=== PATIENT | male | born 1945 | race Caucasian/White ===

== ENCOUNTER 2024-06-13 18:10 | Inpatient (IN) | payer MEDICARE, SELFPAY ==
[2024-06-13 15:30] VITALS: BP 188/75
[2024-06-13 15:55] LABS: % Basophils 0.4 % (0-2); % Eosinophils 0.8 % (0-6); % Immature Granulocytes 0.5 % (0-0.5); % Monocytes 6.2 % (1.7-9.3); % Neutrophils 82.1 % (42.2-75.2); Absolute Eosinophils 0.1 10^3/uL (0-0.7); Absolute Lymphocytes 0.8 10^3/uL (1.2-3.4); Absolute Monocytes 0.5 10^3/uL (0.1-0.6); Absolute Neutrophils 6.2 10^3/uL (1.4-6.5); Hematocrit 37.1 % (39.0-52.0); Hemoglobin 12.2 g/dL (13.0-18.0); Mean Corp Hgb Conc. 32.9 g/dL (33.0-37.0); Mean Corpuscular Hgb 27.7 pg (27.0-31.0); Mean Corpuscular Volume 84.3 fL (80.0-94.0); Mean Platelet Volume 10.6 fL (7.4-10.4); Nucleated Red Blood Cells % 0 % (-); Platelet Count 232 10^3/uL (130-400); Red Cell Dist. Width 14.1 % (11.5-14.5); White Blood Cell Count 7.6 10^3/uL (4.8-10.8)
--- NOTE | 2024-06-13 16:01 | ED.MUSCINJ ---
HPI-Injury
General
Chief Complaint: Musculo-Skeletal Complaint
Source: patient
Exam Limitations: none
Time Seen by Provider: 06/13/24 15:31
Nursing documentation reviewed up to this point in time: agreed with
History of Present Illness-Injury
Initial Injury comments:
78-year-old male with history of Parkinson's, HTN, HLD, mild dementia, depression, PTSD, spinal fusion with rods, cholecystectomy presents stating he walked out of his son room down 2 steps, stumbled and fell onto his left side. He could not get up
due to pain in his hip. He pulled himself over and uses cane to grab telephone off the table and called his [id number] who came to help him. They called EMS, received ketamine 15 mg and route. Patient denies hitting his head, denies neck or
new back pain, denies any other injury. He denies chest pain or SOB. He denies N/V/D/C. He has had no trouble urinating.
He states his pain is minimal if he does not move.
Past History
Past History
ED Past Medical History: HTN, Hypercholesterolemia, Psychiatric and Other (Parkinson's disease)
ED Past Surgical History: Cholecystectomy, Orthopedic and Tonsilectomy
Social History
Tobacco: Non-smoker
Alcohol: None
Drug: None
Personal:
Living: alone
Employment: Retired
Family History
Family History: Other
Review of Systems
Review of Systems
Allergies reviewed?: Yes
All Other Systems: ROS reviewed and negative except as documented in HPI and ROS
Constitutional: Denies fever or chills
Respiratory: Denies trouble breathing
Cardiac: Denies chest pain, palpitations or syncope
ABD/GI: Denies abdominal pain, nausea, vomiting, diarrhea, constipated or anorexia
: Denies dysuria, frequency, incontinence or difficulty voiding
Musculoskeletal: Reports back pain (chronic, nothing new) and other (chronic pain left ankle and foot, remote hx of significant injury to both feet and ankles after falling a long distance years ago); Denies neck pain
Skin: Reports no symptoms
Neurological: Reports no symptoms
Phy Exam
Physical Exam
Physical Exam:
GENERAL: No acute distress. A&Ox3.
CONSTITUTIONAL: Afebrile.
EYES: PERRL, conjunctivae normal
Neck: Supple
ENMT: moist mucus membranes, Pharynx nl
RESPIRATORY: Regular respirations, nonlabored, lungs clear.
CARDIOVASCULAR: Regular rate and rhythm, no murmurs, no rubs.
GI: Soft, nontender, normal BS
MUSCULOSKELETAL: No spinal bony tenderness. Upper extremities are with full range of motion and nontender. Right lower extremity nontender with adequate range of motion. Left leg is shortened and internally rotated. Tender to palpate about the L
hip area. Good Pedal pulse, foot warm, sensation to touch intact. Moves with ease. Well perfused.
SKIN: Warm, dry, pink
PSYCH: Normal mood and affect. Well kept, interactive and appropriate
NEUROLOGIC: Awake, alert and oriented. No focal neurological deficits
Injury Course
Orders/Labs/Results
Orders:
Orders
06/13/24 Dinner
Regular
At Your Request: Full Participation
06/13/24 15:37
CR Hip - LT w/wo Pel 2-3 Vw* Urgent
Reason For Exam: fall, injury to left hip
Include a pelvis x-ray?: Yes
06/13/24 15:38
EKG [Electrocardiogram (*1)] Urgent
Reason for Study: Hypertension, Benign
06/13/24 15:39
EKG- Treatment ONCE
06/13/24 15:43
CBC/With Diff [Complete Blood Count/With Diff] Urgent
CMP [Comprehensive Metabolic Panel] Urgent
PT/INR [Prothrombin Time] Urgent
06/13/24 15:54
HYDROmorphone [Dilaudid] 0.5 mg IV NOW STA
06/13/24 17:02
ORTHOPEDIC CONSULT Urgent
Consulting Provider: Zaheer Perrin
Was physician already notified: Yes
Reason for consult: Left hip fracture
06/13/24 17:47
Admit/Transfer Patient As Directed
Co-Sign Provider:
Level of Care: Inpatient admission
Assign to:: Telemetry
Physician / Group: hospitalist
Diagnosis: hip fracture
Reason for Telemetry: Other
Other Reason for Telemetry: surgery
Date to Stop Telemetry: 06/15/24
Time to Stop Telemetry: 11:00
Reason for Hospitalization: hip fracture
Expected length of stay greater than two midnights?: Yes
ELOS- Estimated Length of Stay in days: 2
I certify the patient meets the requirements for IP care: Yes
PRN Pain Medication Management As Directed
May give lesser potent ordered pain med per pt: Yes
preference::
Protocol:: Medication orders for pain may be administered in a
manner that supports deferring to patient preference
when the pt is:
- Requesting an ordered lesser potent pain medication.
Least to most potent pain medications are defined
as: acetaminophen < NSAID < tramadol < opioids
(morphine, oxycodone, hydromorphone).
- Requesting a lesser dose of the same medication IF
ORDERED.
- Requesting a less intrusive route of administration
if both routes are prescribed by the provider (PO <
IV).
06/13/24 17:48
Code Status As Directed
Resuscitation Status: Full Code
06/13/24 19:45
Magnesium Hydroxide [Milk of Magnesia] 30 ml PO DAILYPRN PRN
Morphine Sulfate 2 mg IV Q2HPRN PRN
Oxycodone [Roxicodone] 5 mg PO Q4HPRN PRN
06/13/24 19:45
Activity As Directed
Activity Level: Bedrest
Bladder Scan As Directed
Follow Bladder Retention/Intermittent Cath Algorithm?: Yes
PRN if no void in __ hours: 6
Comment: if not voiding 6 hrs upon arrival to floor, bladder scan & follow algorithm
Cold Application As Directed
Location: apply ice to affected area
Frequency: PRN
Duration of Application: No longer than 20 minutes
Method of Delivery: Ice packs
Intake/ Output As Directed
Frequency: Per unit guidelines
Pneumatic Compression Sleeves As Directed
Type: Knee high
Straight Cath As Directed
Frequency: Per Retention Algorithm
Additional Instructions: straight cath as needed per acute urinary retention algorithm for 24 hrs
Additional Instructions: for bladder scan greater than 400 mL
Vital Signs As Directed
Frequency: Per unit guidelines
DX Deep Vein Thrombosis Video Routine
06/13/24 20:00
Acetaminophen [Tylenol] 650 mg PO Q4HWA
Docusate Sodium [Colace] 100 mg PO BID
Sennosides [Senokot] 17.2 mg PO BID
06/13/24 22:00
Gabapentin [Neurontin] 600 mg PO TID
Trazodone [Desyrel] 150 mg PO HS
06/14/24 Breakfast
NPO
Allow oral meds: Yes
Allow clear liquids: 4hrs prior to procedure
Comment: may have unrestricted clear liquid up to 4 hrs prior to scheduled procedure
06/14/24 08:00
Lisinopril [Zestril] 10 mg PO DAILY
Meloxicam [Mobic] 15 mg PO DAILY
Pantoprazole [Protonix] 40 mg PO DAILY
Quetiapine Fumarate [Seroquel] 100 mg PO DAILY
Tamsulosin [Flomax] 0.4 mg PO DAILY
Venlafaxine Extended Release [Effexor Xr] 225 mg PO DAILY
06/14/24 18:00
Atorvastatin [Lipitor] 10 mg PO QPM
06/15/24 11:00
DC Protocol for Telemetry ONCE
Abnormal Lab Results
06/13/24
15:43
RBC 4.40 L 10^6/uL
(4.70-6.10)
Hgb 12.2 L g/dL
(13.0-18.0)
Hct 37.1 L %
(39.0-52.0)
MCHC 32.9 L g/dL
(33.0-37.0)
MPV 10.6 H fL
(7.4-10.4)
Absolute Lymphs (auto) 0.8 L 10^3/uL
(1.2-3.4)
Neutrophils % 82.1 H %
(42.2-75.2)
Lymphocytes % 10.0 L %
(20.5-51.1)
PT 15.6 H Sec
(11.4-14.6)
BUN 22 H mg/dl
(9-20)
Total Protein 6.1 L g/dl
(6.3-8.2)
06/13/24 15:43
06/13/24 15:43
MDM/Problems Addressed
Differential Diagnosis Includes:
hip fracture
MDM/Problems Addressed:
78-year-old male with history of Parkinson's, HTN, HLD, mild dementia, depression, PTSD, spinal fusion with rods, cholecystectomy presents stating he walked out of his son room down 2 steps, stumbled and fell onto his left side. He could not get up
due to pain in his hip. He pulled himself over and uses cane to grab telephone off the table and called his [id number]-vw-lbk who came to help him. They called EMS, received ketamine 15 mg and route. Patient denies hitting his head, denies neck or
new back pain, denies any other injury. He denies chest pain or SOB. He denies N/V/D/C. He has had no trouble urinating.
He states his pain is minimal if he does not move.
Afebrile, NAD
EKG: NSR
5:00 PM
CBC with no clinically significant abnormality
CMP with no clinically significant abnormality
EKG NSR
PT PTT unremarkable
Orthopedic consult in
Hospitalist notified of admission
L hip xray initially read by this examiner: Non displaced fx femoral neck.
Dr. Perrin, Orthopedics notified
*EKG
EKG Intrepretation Date: 06/13/24
Heart Rate: 65
Rate: normal
Rhythm: sinus
[place]: normal axis
Interval: normal interval
QRS Pattern: normal QRS
*Critical Care Note
Total Time (30-74mins, 75-104mins- exclusive of procedures): Not Applicable
ED Attending Note
-
Portions of this chart may have been created with voice recognition software.� Occasional wrong word or��sound alike� substitutions may have occurred due to the inherent limitations of voice recognition software.
Discharge Plan
Departure
Patient Disposition: Admit
Date of Disposition: 06/13/24
Time of Disposition: 17:03
Admit to: Med/Surg
Presentation/result/management discussed w/ accepting MD/DO: Hospitalist
Condition: Fair
Discharge Problem:
Closed right hip fracture, Fall from slip, trip, or stumble
Interventions
Interventions:
*Risk Screen - Suicide Last Done: 06/13/24 15:30
*General Assessment Last Done: 06/13/24 15:30
*Neglect/Abuse Screening Last Done: 06/13/24 15:30
*ED COVID-19 Vaccine History Last Done: 06/13/24 16:20
*Nursing Disposition Last Done: 06/13/24 19:39
ED-Musculoskeletal Assessment Last Done: 06/13/24 16:20
Discharge Date and Time
Discharge Date/Time: 06/13/24 19:47
[2024-06-13 16:10] LABS: ALT (SGPT) 15 U/L (0-50); AST (SGOT) 23 U/L (17-59); Alkaline Phosphatase 121 U/L (38-126); Blood Urea Nitrogen 22 mg/dl (9-20); Calcium 8.6 mg/dl (8.4-10.2); Carbon Dioxide 23 mmol/L (22-30); Chloride 106 mmol/L (98-107); Estimated Creatinine Clearance 56 ml/min; Glucose 92 mg/dl (70-99); Potassium 4.3 mmol/L (3.5-5.1); Sodium 141 mmol/L (135-145); Total Bilirubin 0.5 mg/dl (0.2-1.3); Total Protein 6.1 g/dl (6.3-8.2); eGFR > 60.00
[2024-06-13 16:18] LABS: INR 1.21; PT 15.6 Sec (11.4-14.6)
[2024-06-13] MEDS: DILAUDID 0.5 MG IV (16:41)
--- NOTE | 2024-06-13 17:29 | HPS.HSE ---
Family Physician
-
Family Physician: Irwin Anthony
Chief Complaint
-
Fall
History of Present Illness
78-year-old male with a fall.He was walking out of his sun room down 2 steps and fell on the left side.
Medical History
Past Medical History
Past Medical History: Reports Other
Additional Past Medical History:
History of C. difficile, dementia, Parkinson disease, hypertension, hyperlipidemia, prostate disease, arthritis, chronic back pain, depression/PTSD, chronic pain
Past Surgical History: Reports Other
Additional Past Surgical History:
History of spinal fusion with rods, tonsillectomy, cholecystectomy
Social History
Tobacco: Former Smoker
Alcohol: None
Drug: None
Personal:
Living: Alone
Employment: Retired
Family History
Family History: Not pertinent
Allergies / Home Medications
Allergies reflects when Allergies were last updated in [facility].
Home Medications with original date entered in [facility]
Allergy/Medication List:
Allergies
Allergy/AdvReac Type Severity Reaction Status Date / Time
No Known Allergies Allergy Verified 06/13/24 15:29
Home Medications
venlafaxine 75 mg tablet 225 mg PO DAILY 09/07/08
lisinopril 10 mg tablet 10 mg PO DAILY 02/13/22
meloxicam 15 mg tablet 15 mg PO DAILY 02/13/22
simvastatin 20 mg tablet 20 mg PO HS 02/13/22
gabapentin 600 mg tablet 600 mg PO TID 10/07/22
trazodone 100 mg tablet 150 mg PO HS 10/07/22
acetaminophen 500 mg tablet (Tylenol Extra Strength) 500 mg PO DAILY 06/13/24
omeprazole 20 mg capsule,delayed release 40 mg PO DAILY 06/13/24
quetiapine 50 mg tablet 100 mg PO DAILY 06/13/24
tamsulosin 0.4 mg capsule 0.4 mg PO DAILY 06/13/24
Review of Systems
-
A 12 point ROS was completed and negative except as noted: Yes
Respiratory: Denies Trouble Breathing
Cardiac: Denies Chest Pain
Musculoskeletal: Reports Joint Pain
Physical Exam
Vital Signs
Vital Signs
Temp Pulse Resp BP Pulse Ox
98.1 F 69 20 188/75 98
06/13/24 15:30 06/13/24 15:30 06/13/24 15:30 06/13/24 15:30 06/13/24 15:30
Physical Exam
General: Comfortable and Conversant
Respiratory: Clear
Cardiac: S1/S2 and Regular Rhythm
GI: Non Tender and Normal Bowel Sounds
Musculoskeletal: Other (left leg externally rotated)
Neuro: AO x 3 and Nonfocal/grossly intact
Psych: Intact Judgment/Insight
Laboratory Results
-
06/13/24 15:43
06/13/24 15:43
Laboratory Results
PT 15.6 Sec (11.4-14.6) H 06/13/24 15:43
INR 1.21 06/13/24 15:43
Total Bilirubin 0.5 mg/dl (0.2-1.3) 06/13/24 15:43
AST 23 U/L (17-59) 06/13/24 15:43
ALT 15 U/L (0-50) 06/13/24 15:43
Alkaline Phosphatase 121 U/L (38-126) 06/13/24 15:43
Data Reviewed
-
Diagnostic Radiology: Image Personally Visualized and interpreted (Acute intertrochanteric fracture of the left femur)
Medical Tests (Nuc Med, Echo, EKG etc): Image Personally Visualized and interpreted (EKG sinus rhythm no ischemia)
Impression/Plan
-
IMPRESSION/PLAN:
# Acute traumatic left proximal femur intertrochanteric fracture with mild impaction and varus angulation
Admit
Orthopedics evaluation for surgery
Moderate but acceptable risk for surgery
NPO after MN
consulted
# Hyperlipidemia-continue simvastatin
# Hypertension-lisinopril with holding parameters
# Depression/PTSD-continue venlafaxine, trazodone, Seroquel
# Chronic pain-on gabapentin and meloxicam
# History of C. difficile
# History of spinal fusion
# SCDs for DVT prophylaxis
# CODE STATUS- FULL CODE
Spoke to Brother in law Ahmet Villavicencio and updated [phone]
[2024-06-13 18:33] VITALS: BP 179/89
[2024-06-13 19:45] VITALS: BP 157/81; BMI 26.9
--- NOTE | 2024-06-13 20:00 | PTCARENOTE ---
Arrive to [facility] at 1940 from the ED. Pt pulled over from stretcher to bed with 2 shoe folder and 1 RN. Full head to toe complete. Admission questions answered by pt. Static overlay placed on bed. Pt oriented to room and call dill. Bed locked and in lowest
position. Care ongoing.
[2024-06-13] MEDS: COLACE 100 MG PO (20:56)
[2024-06-13] MEDS: SENOKOT 17.2 MG PO (20:56)
[2024-06-13] MEDS: TYLENOL 650 MG PO ×2 (20:56→23:47)
[2024-06-13] MEDS: MORPHINE SULFATE 2 MG IV ×2 (20:58→23:46)
[2024-06-13] MEDS: DESYREL 150 MG PO (21:39)
[2024-06-13] MEDS: NEURONTIN 600 MG PO (21:39)
[2024-06-13 23:09] VITALS: BP 159/79
[2024-06-14] VITALS (10 sets, daily range): BP systolic 100–164; BP diastolic 50–87
[2024-06-14] MEDS: ROXICODONE 5 MG PO (03:34)
[2024-06-14] MEDS: TYLENOL 650 MG PO ×6 (03:34→23:26)
--- NOTE | 2024-06-14 05:54 | CON.ORTHO ---
Consultation
-
Date/Time Consultation Requested: 06/13/2024 @ 17:02
Date/Time Consultation Performed: 06/14/2024 @ 5:30 AM
Requesting Provider: Nuria Esparza NP
Performing Provider: Anuj Escobar PA-C for Dr. Perrin
Reason for Consultation: Left Hip Fracture
Consultation - Orthopedics
History
HPI: The patient is a 78-year-old male with a past medical history significant for Parkinson disease, dementia, history of C. difficile, hypertension, hyperlipidemia, prostate disease, arthritis, chronic back pain, depression/PTSD, and chronic pain,
admitted to [facility] following a mechanical fall. He reports that he was walking out of his sunroom down 2 steps and fell onto the left side yesterday. He was unable to get up. He was transferred to ED, where x-rays were obtained
revealing a left intertrochanteric hip fracture. He reports pain to the left hip and groin region. At baseline, he ambulates with a cane. Orthopedics has been consulted for further management.
PAST MEDICAL HISTORY: History of C. difficile, dimension, Parkinson's disease, hypertension, hyperlipidemia, prostate disease, arthritis, chronic back pain, depression/PTSD, chronic pain.
PAST SURGICAL HISTORY: History of spinal fusion with rods, tonsillectomy, cholecystectomy.
SOCIAL HISTORY: Former smoker. Denies any alcohol or illicit drug use. He lives at home alone. He ambulates with a cane at baseline.
FAMILY HISTORY: Non-contributory.
REVIEW OF SYSTEMS: 12-point review of systems obtained and negative except those mentioned in the HPI.
Allergies / Home Medications
Allergy/AdvReac Type Severity Reaction Status Date / Time
No Known Allergies Allergy Verified 06/13/24 15:29
�Medication �Instructions �Recorded
venlafaxine 75 mg tablet 225 mg PO DAILY 09/07/08
lisinopril 10 mg tablet 10 mg PO DAILY 02/13/22
meloxicam 15 mg tablet 15 mg PO DAILY 02/13/22
simvastatin 20 mg tablet 20 mg PO HS 02/13/22
gabapentin 600 mg tablet 600 mg PO TID 10/07/22
trazodone 100 mg tablet 150 mg PO HS 10/07/22
acetaminophen 500 mg tablet 500 mg PO DAILY 06/13/24
(Tylenol Extra Strength)
omeprazole 20 mg capsule,delayed 40 mg PO DAILY 06/13/24
release
quetiapine 50 mg tablet 100 mg PO DAILY 06/13/24
tamsulosin 0.4 mg capsule 0.4 mg PO DAILY 06/13/24
Vital Signs / Lab Results
Temp Pulse Resp BP Pulse Ox
97.7 F 71 18 155/71 92
06/14/24 03:58 06/14/24 03:58 06/14/24 03:58 06/14/24 03:58 06/14/24 03:58
06/13/24 15:43
06/13/24 15:43
RADIOGRAPHIC FINDINGS:
CR Hip - LEFT w/wo Pel 2-3 Vw* was obtained at [facility] on 06/13/2024 and was made available for my review today. Findings/impression: Acute fracture of the intertrochanteric left proximal femur with mild impaction and varus angulation.
No hip dislocation. Mild bilateral joint hip joint space narrowing. The bony pelvis is intact. Bilateral posterior paraspinal rods are in place. Spinal stimulator generator pack/leads are noted.
PHYSICAL EXAM:
General: Well-developed, well-nourished and in no apparent distress.
HEENT: NCAT, sclerae anicteric, normal hearing.
Heart: No JVD.
Lungs: Normal work of breathing on room air.
MSK: Directed exam of the left lower extremity reveals leg shortened and externally rotated. (+) TTP about the left hip/lateral thigh. Compartments are soft and compressible. (+) Logroll. Calf is soft and nontender to palpation. Able to dorsiflex
and plantarflex left ankle. NVI distally.
Assessment / Plan
ASSESSMENT: 78-year-old male with a LEFT trochanteric proximal femur fracture.
PLAN: Unfortunately, the patient has sustained a left hip fracture. Recommended operative fixation. The risks, benefits, potential complications and expected postoperative course were reviewed. We will plan for left hip gamma nail under the
direction of Dr. Sadler today, 06/14/2024. Patient has been medically cleared to proceed with surgery. Surgical and blood consent obtained and placed on patient's chart. I spoke with patient's POA (Ahmet) who also provides consent. Ancef and
irrigation on-call to OR. Patient will remain NPO. Remain NWB to LLE until postop. He is to remain on bedrest for now. Continue with pain medications as needed. Type and screen ordered. Left hip marked as the correct surgical extremity.
Hemoglobin 06/13/2024 12.2. Hemoglobin this AM pending. Orthopedic surgery will continue to follow along.
[2024-06-14 06:48] LABS: % Basophils 0.6 % (0-2); % Eosinophils 2.7 % (0-6); % Immature Granulocytes 0.4 % (0-0.5); % Lymphocytes 11.6 % (20.5-51.1); % Monocytes 9.8 % (1.7-9.3); % Neutrophils 74.9 % (42.2-75.2); Absolute Eosinophils 0.1 10^3/uL (0-0.7); Absolute Lymphocytes 0.6 10^3/uL (1.2-3.4); Absolute Monocytes 0.5 10^3/uL (0.1-0.6); Absolute Neutrophils 3.9 10^3/uL (1.4-6.5); Hematocrit 37.6 % (39.0-52.0); Mean Corp Hgb Conc. 31.9 g/dL (33.0-37.0); Mean Corpuscular Hgb 27.1 pg (27.0-31.0); Mean Corpuscular Volume 85.1 fL (80.0-94.0); Mean Platelet Volume 10.4 fL (7.4-10.4); Nucleated Red Blood Cells % 0 % (-); Platelet Count 191 10^3/uL (130-400); Red Blood Cell Count 4.42 10^6/uL (4.70-6.10); Red Cell Dist. Width 14.2 % (11.5-14.5); White Blood Cell Count 5.2 10^3/uL (4.8-10.8)
[2024-06-14] MEDS: EFFEXOR XR 225 MG PO (09:18)
[2024-06-14] MEDS: PROTONIX 40 MG PO (09:19)
[2024-06-14] MEDS: NEURONTIN 600 MG PO ×3 (09:19→21:26)
[2024-06-14] MEDS: FLOMAX 0.4 MG PO (09:20)
--- NOTE | 2024-06-14 09:28 | W.PN.HOSP.TC ---
Today's Communication/Plan
-
OR today
Assessment / Plan
Assessment / Plan
CVS: S1-S2 normal
Chest: CTA B/L
Abdomen: Soft, NT / Bowel sounds present
Extremities: left leg externally rotated
RELISH BLENDER: Non focal exam
# Acute traumatic left proximal femur intertrochanteric fracture with mild impaction and varus angulation
Orthopedics consulted for surgery, planning today
Moderate but acceptable risk for surgery
# Hyperlipidemia-continue simvastatin
# Hypertension-lisinopril with holding parameters
# Depression/PTSD-continue venlafaxine, trazodone, Seroquel
# Chronic pain-on gabapentin and meloxicam
# History of C. difficile
# History of spinal fusion
# SCDs for DVT prophylaxis
# CODE STATUS- FULL CODE
Spoke to Brother in law Ahmet Villavicencio and updated [phone] on 06/13/24
D/W Ortho today
Anticipated Discharge: 24 - 48 hours
Subjective/Interval History
-
Date of Service: June 14, 2024
Objective Data
-
Labs:
Laboratory Results
06/14/24
06:31
WBC 5.2
Hgb 12.0 L
Hct 37.6 L
Plt Count 191
Vital Signs:
Vital Signs
Temp Pulse Resp BP Pulse Ox
97.9 F 67 18 157/87 92
06/14/24 07:30 06/14/24 07:30 06/14/24 07:30 06/14/24 07:30 06/14/24 07:30
I&O
06/13/24 06/14/24 06/15/24
06:59 06:59 06:59
Intake Total 480 / 480
Output Total 250 / 250
Balance 230 / 230
--- NOTE | 2024-06-14 11:45 | CM ---
Patient seen at bedside.
OR today
Dx: hip fx
PMH: Parkinsons, HTN, chronic back pain, dementia, C-diff, HDL, prostate disease, PTSD
Patient lives in a 1 story home alone, 1 step to enter.
PLOF: Independent, ambulates with cane, driving
DME: shower chair, cane, walker, grab bars
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
Patient is a .
Denies VN in past and Rehab
Reviewed options with patient
Await PT/OT evals post-op
PCP: Irwin Anthony
Pharmacy: [facility]
PLAN: OR today, await PT/OT evals post-op
[2024-06-14] MEDS: MORPHINE SULFATE 1 MG IV (14:56)
[2024-06-14] MEDS: SEROQUEL 100 MG PO (16:32)
[2024-06-14] MEDS: MOBIC 15 MG PO (16:33)
[2024-06-14] MEDS: SENOKOT PO (16:33)
[2024-06-14] MEDS: COLACE 100 MG PO ×2 (16:33→20:45)
[2024-06-14] MEDS: ZESTRIL PO (16:34)
--- NOTE | 2024-06-14 16:36 | PTCARENOTE ---
Patient returned from [facility] post ORIF of the left hip.Both dressings are intact with only scant drainage.Vital signs are stable.The patient is alert but drowsy.He has some confusion most likely from the anesthesia.Neurovascular assessment is within
normal limits and ongoing.The patient is in his bed with the call dill in reach.
[2024-06-14] MEDS: ASPIRIN 325 MG PO (18:07)
[2024-06-14] MEDS: LIPITOR 10 MG PO (18:08)
[2024-06-14] MEDS: SENOKOT 17.2 MG PO (20:46)
[2024-06-14] MEDS: ANCEF 5 IV (21:26)
[2024-06-14] MEDS: DESYREL 150 MG PO (21:28)
[2024-06-15] VITALS (8 sets, daily range): BP systolic 91–126; BP diastolic 51–74; PULSE 78; O2SAT 97–98
[2024-06-15] MEDS: TYLENOL PO (04:31)
[2024-06-15] MEDS: ANCEF 5 IV (05:41)
--- NOTE | 2024-06-15 07:30 | W.PN.ORTHO ---
Today's Communication / Plan
-
PT/OT
Weightbearing as tolerated with walker
Aspirin for DVT prophylactics
surgical services asst for dispo
Skin clip removal 2 weeks postop
Follow-up orthopedics 4 weeks postop
Assessment
.
Distal Motor Intact: Yes
Dressing:
Clean, dry and intact.
Plan
.
Surgery / Date: L hip Gamma Nail 06/14 Ritting
DVT Prophylaxis: Aspirin
Activity:
Out of bed.
PT/OT
Discharge Plan: SNF
Subjective
.
.:
Patient resting comfortably.
Vital Signs and Labs
.
Vital Signs and Labs:
Temp Pulse Resp BP Pulse Ox
97.6 F 63 18 120/58 98
06/15/24 03:39 06/15/24 03:39 06/15/24 03:39 06/15/24 03:39 06/15/24 03:39
PT 15.6 Sec (11.4-14.6) H 06/13/24 15:43
INR 1.21 06/13/24 15:43
[2024-06-15 07:39] LABS: Hematocrit 32.7 % (39.0-52.0); Hemoglobin 10.4 g/dL (13.0-18.0)
[2024-06-15 07:55] LABS: Blood Urea Nitrogen 31 mg/dl (9-20); Calcium 8.2 mg/dl (8.4-10.2); Carbon Dioxide 25 mmol/L (22-30); Chloride 103 mmol/L (98-107); Estimated Creatinine Clearance 40 ml/min; Glucose 124 mg/dl (70-99); Potassium 5.4 mmol/L (3.5-5.1); Sodium 138 mmol/L (135-145); eGFR 51.13
[2024-06-15] MEDS: NEURONTIN 600 MG PO (08:20)
[2024-06-15] MEDS: SEROQUEL 100 MG PO (08:20)
[2024-06-15] MEDS: SENOKOT 17.2 MG PO ×2 (08:21→20:58)
[2024-06-15] MEDS: PROTONIX 40 MG PO (08:21)
[2024-06-15] MEDS: MOBIC 15 MG PO (08:21)
[2024-06-15] MEDS: ASPIRIN 325 MG PO (08:21)
[2024-06-15] MEDS: ZESTRIL 10 MG PO (08:21)
[2024-06-15] MEDS: FLOMAX 0.4 MG PO (08:21)
[2024-06-15] MEDS: EFFEXOR XR 225 MG PO (08:21)
[2024-06-15] MEDS: COLACE 100 MG PO ×2 (08:21→20:58)
[2024-06-15] MEDS: ROXICODONE 5 MG PO (08:21)
[2024-06-15] MEDS: TYLENOL 650 MG PO ×4 (08:21→20:58)
[2024-06-15 08:27] LABS: Iron 35 ug/dl (49-181); Percent Saturation 11 % (20-50); Total Iron Binding Capacity 297 ug/dl (261-462)
[2024-06-15 09:49] LABS: Ferritin 44.9 ng/ml (17.9-464.0)
[2024-06-15 11:07] LABS: Vitamin B12 221 pg/ml (239-931)
--- NOTE | 2024-06-15 11:40 | W.PN.HOSP.TC ---
Addendum entered and electronically signed by Roxann Barrera MD 06/15/24 11:56:
Acqacel with bleeding
Original Note:
Today's Communication/Plan
-
IVF
Iron and B12
PT OT
Suspect needs rehab
Plan discharge for tomorrow- Case management alerted.
Assessment / Plan
Assessment / Plan
CVS: S1-S2 normal
Chest: CTA B/L
Abdomen: Soft, NT / Bowel sounds present
Extremities: left leg externally rotated
FRUIT DRYER: Non focal exam
# Acute traumatic left proximal femur intertrochanteric fracture with mild impaction and varus angulation
Status post left hip gamma nail on 06/14/[address] Velasquez.
Aspirin for DVT prophylaxis
Weightbearing as tolerated with walker
Clips to be removed 2 weeks postop with 4-week orthopedic follow-up
# Acute kidney injury-hold meloxicam and lisinopril. Hyperkalemia-Lokelma. Check bladder scan
# Acute blood loss anemia secondary to surgery. Also injections and B12 deficiency. Replace both
# Hyperlipidemia-continue simvastatin
# Hypertension-lisinopril with hold
# Depression/PTSD-continue venlafaxine, trazodone, Seroquel
# Chronic pain-on gabapentin and meloxicam. Hold meloxicam
# History of C. difficile
# History of spinal fusion
# DVT prophylaxis-aspirin
# CODE STATUS- FULL CODE
Spoke to Brother in law Ahmet Villavicencio and updated [phone] on 06/13/24 and 06/15/24
(Daughter listed on the chart to call. I called her and she deferred call to her uncle. She stated that patient does not have anything to do with her usually.
I then called his brother, and updated.
Anticipated Discharge: Within 24 hours
Subjective/Interval History
-
Date of Service: June 15, 2024
Objective Data
-
Labs:
Laboratory Results
06/15/24
07:14
Hgb 10.4 L
Hct 32.7 L
Sodium 138
Potassium 5.4 H D
Chloride 103
Carbon Dioxide 25
BUN 31 H
Creatinine 1.4 H
Glucose 124 H
Calcium 8.2 L
Vital Signs:
Vital Signs
Temp Pulse Resp BP Pulse Ox
97.9 F 68 18 125/59 98
06/15/24 07:00 06/15/24 07:00 06/15/24 07:00 06/15/24 07:00 06/15/24 07:00
I&O
06/14/24 06/15/24 06/16/24
06:59 06:59 06:59
Intake Total 480 / 480 1010 / 1010
Output Total 250 / 250 1200 / 1200
Balance 230 / 230 -190 / -190
[2024-06-15] MEDS: CYANOCOBALAMIN 1000 MCG IM (12:35)
[2024-06-15] MEDS: LOKELMA 10 GRAM PO (12:35)
[2024-06-15] MEDS: FERRLECIT 110 MG IV (12:35)
[2024-06-15] MEDS: NSS 1000 IV (12:35)
[2024-06-15 14:29] LABS: Vitamin D, 25-OH*** 30.5 ng/mL (30-80)
--- NOTE | 2024-06-15 15:11 | CM ---
Reviewed the chart notes and spoke with the patient at the bedside. Discussed area NHs. Patient agreeable to referrals being sent to area SNFs. Referrals and [facility] sent via [facility]. CM continues to be available to patient/family and is
monitoring medical plan for needs at discharge.
Plan: Discharge to SNF/rehab once bed found and precert obtained.
[2024-06-15] MEDS: NEURONTIN 300 MG PO ×2 (15:14→22:23)
[2024-06-15] MEDS: LIPITOR PO (17:26)
[2024-06-15] MEDS: ZOFRAN 4 MG IV (21:43)
[2024-06-15] MEDS: DESYREL 150 MG PO (22:23)
[2024-06-16] MEDS: TYLENOL PO ×2 (00:20→04:45)
[2024-06-16] MEDS: NSS 1000 IV ×2 (02:11→12:46)
[2024-06-16 03:25] VITALS: BP 135/61
[2024-06-16 05:37] LABS: Hematocrit 29.4 % (39.0-52.0); Hemoglobin 9.1 g/dL (13.0-18.0)
[2024-06-16 06:04] LABS: Blood Urea Nitrogen 42 mg/dl (9-20); Calcium 7.6 mg/dl (8.4-10.2); Carbon Dioxide 23 mmol/L (22-30); Chloride 107 mmol/L (98-107); Estimated Creatinine Clearance 35 ml/min; Glucose 119 mg/dl (70-99); Potassium 4.5 mmol/L (3.5-5.1); Sodium 142 mmol/L (135-145); eGFR 43.56
--- NOTE | 2024-06-16 07:25 | W.PN.ORTHO ---
Today's Communication / Plan
-
PT/OT
Weightbearing as tolerated with walker
Aspirin for DVT prophylactics unless recommended otherwise per primary for 4 weeks
DC planning
Skin clip removal 2 weeks postop
Follow-up orthopedics 4 weeks postop
Orthopedic surgery will follow peripherally please reengage with further questions concerns
Assessment
.
Distal Motor Intact: Yes
Dressing:
Dressing saturated- removed and cleaned with sterile NaCl, no active bleeding. New dressing clean, dry and intact.
Plan
.
Surgery / Date: L hip Gamma Nail 06/04 Ritting
Activity:
Out of bed.
PT/OT
Subjective
.
.:
Patient resting comfortably.
Vital Signs and Labs
.
Vital Signs and Labs:
Lab Results
06/16/24 04:41
06/16/24 04:41
Temp Pulse Resp BP Pulse Ox
98.0 F 71 18 135/61 92
06/16/24 03:25 06/16/24 03:25 06/16/24 03:25 06/16/24 03:25 06/16/24 03:25
PT 15.6 Sec (11.4-14.6) H 06/13/24 15:43
INR 1.21 06/13/24 15:43
[2024-06-16 08:00] VITALS: BP 125/62
[2024-06-16] MEDS: COLACE 100 MG PO ×2 (09:10→21:09)
[2024-06-16] MEDS: TYLENOL 650 MG PO ×4 (09:10→21:09)
[2024-06-16] MEDS: CYANOCOBALAMIN 1000 MCG IM (09:10)
[2024-06-16] MEDS: EFFEXOR XR 225 MG PO (09:10)
[2024-06-16] MEDS: PROTONIX 40 MG PO (09:11)
[2024-06-16] MEDS: SEROQUEL 100 MG PO (09:11)
[2024-06-16] MEDS: SENOKOT 17.2 MG PO ×2 (09:12→21:09)
[2024-06-16] MEDS: NEURONTIN 300 MG PO ×3 (09:12→21:09)
[2024-06-16] MEDS: FLOMAX 0.4 MG PO (09:12)
[2024-06-16] MEDS: ASPIRIN 325 MG PO (09:12)
--- NOTE | 2024-06-16 10:11 | CM ---
Addendum entered by Keiko Pineda 06/16/24 13:37:
CM called [facility] started auth process ([phone])
Spoke with Felisa Wynn
Pending Reference #: [id number]
Faxed clinicals to: [phone]
Notified Jami liaison from [facility]
PLAN: SNF, pending insurance approval
[facility]
Report #: [phone]
Fax #: [phone]
Original Note:
Spoke with patient at bedside.
[facility] home does not accept insurance
Spoke wtih Jami liaison Additional referral to [facility]
Will need authorization
plan: SNF, pending bed availability - will need to obtain ins auth
--- NOTE | 2024-06-16 10:49 | W.PN.HOSP.TC ---
Today's Communication/Plan
-
IVF
UA
Urine sodium
If Creat better Discharge to rehab tomorrow
Assessment / Plan
Assessment / Plan
CVS: S1-S2 normal
Chest: CTA B/L
Abdomen: Soft, NT / Bowel sounds present
Acquacel with no bleeding.
# Acute traumatic left proximal femur intertrochanteric fracture with mild impaction and varus angulation
Status post left hip gamma nail on 06/14/[address] Velasquez.
Aspirin for DVT prophylaxis
Weightbearing as tolerated with walker
Clips to be removed 2 weeks postop with 4-week orthopedic follow-up
# Acute kidney injury-hold meloxicam and lisinopril. Hyperkalemia-Lokelma. No retention. Check UA and Urine sodium.
# Acute blood loss anemia secondary to surgery. Also injections and B12 deficiency. Replace both
# Hyperlipidemia-continue simvastatin
# Hypertension-lisinopril with hold
# Depression/PTSD-continue venlafaxine, trazodone, Seroquel
# Chronic pain-on gabapentin and meloxicam. Hold meloxicam
# History of C. difficile
# History of spinal fusion
# DVT prophylaxis-aspirin
# CODE STATUS- FULL CODE
D/W case management
Spoke to Brother in law Ahmet Villavicencio and updated [phone] on 06/13/24 and 06/15/24
(Daughter listed on the chart to call. I called her and she deferred call to her uncle. She stated that patient does not have anything to do with her usually.)
Anticipated Discharge: Within 24 hours
Subjective/Interval History
-
Date of Service: June 16, 2024
Objective Data
-
Labs:
Laboratory Results
06/16/24
04:41
Hgb 9.1 L
Hct 29.4 L
Sodium 142
Potassium 4.5
Chloride 107
Carbon Dioxide 23
BUN 42 H
Creatinine 1.6 H
Glucose 119 H
Calcium 7.6 L
Vital Signs:
Vital Signs
Temp Pulse Resp BP Pulse Ox
97.9 F 76 20 125/62 94
06/16/24 08:00 06/16/24 08:00 06/16/24 08:00 06/16/24 08:00 06/16/24 08:00
I&O
06/15/24 06/16/24 06/17/24
06:59 06:59 06:59
Intake Total 1010 / 1010 1680 / 1680
Output Total 1200 / 1200 350 / 350
Balance -190 / -190 1330 / 1330
[2024-06-16] MEDS: FERRLECIT 110 MG IV (13:09)
[2024-06-16] MEDS: ROXICODONE 5 MG PO (13:13)
[2024-06-16 15:27] VITALS: BP 133/56; BP 135/60; PULSE 76; O2SAT 94
[2024-06-16 15:37] VITALS: BP 133/56; BP 135/60; PULSE 76; O2SAT 94
[2024-06-16 15:57] LABS: Urine Albumin Negative (Neg - Trace); Urine Bilirubin Negative (Negative); Urine Character Clear (Clear); Urine Color Yellow; Urine Glucose Negative (Negative); Urine Ketone Negative (Negative); Urine Leukocyte Negative (Negative); Urine Nitrite Negative (Negative); Urine Occult Blood Negative (Negative); Urine Urobilinogen Negative (Neg - 1+)
[2024-06-16 16:00] VITALS: BP 135/60
[2024-06-16 16:05] LABS: Urine Sodium 8 mmol/L (30-90)
[2024-06-16] MEDS: LIPITOR 10 MG PO (17:07)
[2024-06-16] MEDS: DESYREL 150 MG PO (21:09)
[2024-06-16 23:59] VITALS: BP 135/65
[2024-06-17] MEDS: NSS 1000 IV ×2 (00:33→09:13)
[2024-06-17] MEDS: TYLENOL PO (00:55)
[2024-06-17] MEDS: ROXICODONE 5 MG PO ×4 (05:43→20:42)
[2024-06-17] MEDS: TYLENOL 650 MG PO ×5 (05:43→20:43)
[2024-06-17 06:49] LABS: Hematocrit 27.2 % (39.0-52.0); Hemoglobin 8.6 g/dL (13.0-18.0); Mean Corp Hgb Conc. 31.6 g/dL (33.0-37.0); Mean Corpuscular Hgb 28.1 pg (27.0-31.0); Mean Corpuscular Volume 88.9 fL (80.0-94.0); Mean Platelet Volume 11.1 fL (7.4-10.4); Platelet Count 161 10^3/uL (130-400); Red Blood Cell Count 3.06 10^6/uL (4.70-6.10); Red Cell Dist. Width 14.9 % (11.5-14.5); White Blood Cell Count 6.8 10^3/uL (4.8-10.8)
[2024-06-17 07:13] LABS: Blood Urea Nitrogen 26 mg/dl (9-20); Calcium 7.8 mg/dl (8.4-10.2); Carbon Dioxide 24 mmol/L (22-30); Chloride 109 mmol/L (98-107); Estimated Creatinine Clearance 62 ml/min; Glucose 93 mg/dl (70-99); Potassium 4.1 mmol/L (3.5-5.1); Sodium 142 mmol/L (135-145); eGFR > 60.00
[2024-06-17 07:40] VITALS: BP 169/73
[2024-06-17] MEDS: SEROQUEL 100 MG PO (09:09)
[2024-06-17] MEDS: SENOKOT 17.2 MG PO ×3 (09:09→21:00)
[2024-06-17] MEDS: EFFEXOR XR 225 MG PO (09:10)
[2024-06-17] MEDS: COLACE 100 MG PO ×2 (09:10→20:43)
[2024-06-17] MEDS: ASPIRIN 325 MG PO (09:11)
[2024-06-17] MEDS: PROTONIX 40 MG PO (09:11)
[2024-06-17] MEDS: FLOMAX 0.4 MG PO (09:11)
[2024-06-17] MEDS: CYANOCOBALAMIN 1000 MCG IM (09:12)
[2024-06-17] MEDS: NEURONTIN 300 MG PO ×3 (09:13→20:43)
--- NOTE | 2024-06-17 12:05 | W.PN.HOSP.TC ---
Today's Communication/Plan
-
DC to SNF upon insurance authorization
Assessment / Plan
Assessment / Plan
#Acute traumatic left proximal femur intertrochanteric fracture with mild impaction and varus angulation
-Status post left hip gamma nail on 06/14/[address] Velasquez.
-Aspirin for DVT prophylaxis
-Weightbearing as tolerated with walker
-Clips to be removed 2 weeks postop with 4-week orthopedic follow-up
-Started oxycodone 5 mg PRN for moderate pain, c/w tylenol for mild pain
-Medically stable for SNF, pending insurance authorization
#Acute blood loss anemia secondary to surgery. Also injections and B12 deficiency. Replace both
#Hyperlipidemia-continue simvastatin
#Hypertension-lisinopril with hold parameters
#Depression/PTSD-continue venlafaxine, trazodone, Seroquel
#Chronic pain-on gabapentin and meloxicam. Hold meloxicam
#History of C. difficile
#History of spinal fusion
DVT prophylaxis: aspirin
CODE STATUS: FULL CODE
D/W case management
Anticipated Discharge: Today
Subjective/Interval History
-
Date of Service: June 17, 2024
Seen and Examined at the bedside. RUBENS this morning.
Had some pain this morning in his hip that responded to oxycodone and tylenol.
Denies acute complaints. Pending insurance auth for SNF
Objective Data
-
Labs:
Laboratory Results
06/17/24
05:51
WBC 6.8
Hgb 8.6 L
Hct 27.2 L
Plt Count 161
Sodium 142
Potassium 4.1
Chloride 109 H
Carbon Dioxide 24
BUN 26 H
Creatinine 0.9
Glucose 93
Calcium 7.8 L
Vital Signs:
Vital Signs
Temp Pulse Resp BP Pulse Ox
97.5 F 71 16 169/73 95
06/17/24 07:40 06/17/24 07:40 06/17/24 07:40 06/17/24 07:40 06/17/24 07:40
I&O
06/16/24 06/17/24 06/18/24
06:59 06:59 06:59
Intake Total 1680 / 1680 3710 / 3710
Output Total 350 / 350 1250 / 1250
Balance 1330 / 1330 2460 / 2460
Review of Systems
-
History Source: Patient
All other systems: Reviewed and negative
Physical Exam
-
General: Well Developed, Well Nourished and No Apparent Distress
HEENT: Normocephalic, Atraumatic and Moist Mucous Membranes
Respiratory: Clear to Auscultation and Non Labored Respirations
Cardiac: Regular Rhythm and S1/S2; Negative Murmur, Rub or Gallop
GI: Soft, Nontender, Nondistended and Normal Bowel Sounds
Musculoskeletal: No Clubbing, No Cyanosis and No Edema
Skin: Warm and Dry; Negative Rash
Neuro: AO x 3 and Nonfocal/Grossly Intact
Psych: Calm
Data Reviewed
-
Labs: Labs Reviewed by me and Discussed with Patient
[2024-06-17 12:20] VITALS: BP 161/82
[2024-06-17 15:25] VITALS: BP 139/54
[2024-06-17] MEDS: FERRLECIT 110 MG IV (15:35)
[2024-06-17] MEDS: NSS IV (15:35)
[2024-06-17] MEDS: LIPITOR 10 MG PO (15:37)
[2024-06-17] MEDS: DESYREL 150 MG PO (20:43)
[2024-06-17 23:29] VITALS: BP 137/73
[2024-06-18] VITALS (7 sets, daily range): BP systolic 165–196; BP diastolic 70–90
[2024-06-18] MEDS: TYLENOL 650 MG PO ×4 (00:56→21:00)
[2024-06-18] MEDS: ROXICODONE 5 MG PO ×3 (00:56→10:08)
[2024-06-18] MEDS: ASPIRIN 325 MG PO (08:16)
[2024-06-18] MEDS: EFFEXOR XR 225 MG PO (08:16)
[2024-06-18] MEDS: FLOMAX 0.4 MG PO (08:17)
[2024-06-18] MEDS: PROTONIX 40 MG PO (08:17)
[2024-06-18] MEDS: NEURONTIN 300 MG PO ×3 (08:18→21:04)
[2024-06-18] MEDS: SENOKOT 17.2 MG PO (08:18)
[2024-06-18] MEDS: COLACE 100 MG PO ×2 (08:18→21:03)
[2024-06-18] MEDS: SEROQUEL 100 MG PO (08:18)
[2024-06-18] MEDS: CYANOCOBALAMIN 1000 MCG IM (08:19)
--- NOTE | 2024-06-18 12:08 | PTCARENOTE ---
Addendum entered by Marleny Oropeza RN 06/18/24 12:15:
refused [place].
Original Note:
pt is again teary today , as yesterday about who passed and daughter and son in-law, but he is more depressed refusing meals stating he gives up. Did let Dr. Heath know about requesting oxycodone before due and when seems to be relaxing or then
teary. Overnight nurse also raised a concern about usage and why using. pt has extension hx of PTSD and anxiety and his behaviors raise concerns. Nurse is providing comfort offering different needs to the pt, but today is flat out refusing now seems
angry. Will offer a [place].
--- NOTE | 2024-06-18 12:25 | W.PN.HOSP.TC ---
Today's Communication/Plan
-
SNF when authorization complete
Stop Oxycodone, tylenol for pain
Bowel regimen
Assessment / Plan
Assessment / Plan
#Acute traumatic left proximal femur intertrochanteric fracture with mild impaction and varus angulation
-Status post left hip gamma nail on 06/14/[address] Velasquez.
-Aspirin for DVT prophylaxis
-Weightbearing as tolerated with walker
-Clips to be removed 2 weeks postop with 4-week orthopedic follow-up
-Medically stable for SNF, pending insurance authorization
#Acute blood loss anemia secondary to surgery. Also injections and B12 deficiency. Replace both
#Hyperlipidemia-continue simvastatin
#Hypertension-lisinopril with hold parameters
#Depression/PTSD-continue venlafaxine, trazodone, Seroquel
#Chronic pain-on gabapentin and meloxicam. Hold meloxicam
#History of C. difficile
#History of spinal fusion
DVT prophylaxis: aspirin
CODE STATUS: FULL CODE
D/W case management
Anticipated Discharge: Within 24 hours
Subjective/Interval History
-
Date of Service: June 18, 2024
Patient was seen and examined at the bedside. No acute events reported overnight. AFVSS this morning.
Patient this morning does seem in poor mood. Complaining of pain in his hip and arthritic left foot. Per nursing there is concerns about opioid seeking.
Denies other acute complaints, pending SNF placement
Objective Data
-
Vital Signs:
Vital Signs
Temp Pulse Resp BP Pulse Ox
98.3 F 68 18 165/83 95
06/18/24 07:35 06/18/24 07:35 06/18/24 07:35 06/18/24 07:35 06/18/24 08:30
I&O
06/17/24 06/18/24 06/19/24
06:59 06:59 06:59
Intake Total 3710 / 3710 2770 / 2770 360 / 360
Output Total 1250 / 1250 1845 / 1845 450 / 450
Balance 2460 / 2460 925 / 925 -90 / -90
Review of Systems
-
History Source: Patient
All other systems: Reviewed and negative
Physical Exam
-
General: Well Developed, Well Nourished, No Apparent Distress and Comfortable
HEENT: Normocephalic, Atraumatic and Moist Mucous Membranes
Respiratory: Clear to Auscultation and Non Labored Respirations
Cardiac: Regular Rhythm and S1/S2; Negative Murmur, Rub or Gallop
GI: Soft, Nontender, Nondistended and Normal Bowel Sounds
Musculoskeletal: No Clubbing, No Cyanosis and No Edema
Skin: Warm, Dry and Normal Turgor; Negative Rash
Neuro: AO x 3 and Nonfocal/Grossly Intact
Psych: Agitated
[2024-06-18] MEDS: TYLENOL PO ×2 (14:19→15:58)
[2024-06-18] MEDS: FERRLECIT 110 MG IV (14:20)
[2024-06-18] MEDS: MIRALAX 17 GRAMS PO (14:35)
[2024-06-18] MEDS: OFIRMEV 100 IV (15:51)
[2024-06-18] MEDS: LIPITOR 10 MG PO (15:58)
[2024-06-18] MEDS: APRESOLINE 10 MG IV ×2 (18:27→22:41)
--- NOTE | 2024-06-18 19:39 | PTCARENOTE ---
BP 176/76, gave pain med to r/o. BP up to 190/96 (84). Lisinopril has been on HOLD. Notified Dr. Heath ordered Hydralazine and restart Lisinopril.
[2024-06-18] MEDS: DESYREL 150 MG PO (21:04)
[2024-06-19] VITALS (10 sets, daily range): BP systolic 73–199; BP diastolic 39–100; PULSE 86; O2SAT 96
[2024-06-19] MEDS: OFIRMEV 100 IV (00:32)
[2024-06-19] MEDS: TYLENOL PO ×3 (01:03→23:23)
[2024-06-19] MEDS: MORPHINE SULFATE 2 MG IV (02:15)
[2024-06-19 06:30] LABS: Hematocrit 32.3 % (39.0-52.0); Hemoglobin 10.3 g/dL (13.0-18.0)
[2024-06-19] MEDS: PROTONIX 40 MG PO (08:14)
[2024-06-19] MEDS: NEURONTIN 300 MG PO ×3 (08:14→21:13)
[2024-06-19] MEDS: ASPIRIN 325 MG PO (08:14)
[2024-06-19] MEDS: FLOMAX 0.4 MG PO (08:14)
[2024-06-19] MEDS: CYANOCOBALAMIN 1000 MCG IM (08:14)
[2024-06-19] MEDS: SENOKOT 17.2 MG PO (08:14)
[2024-06-19] MEDS: SEROQUEL 100 MG PO (08:15)
[2024-06-19] MEDS: EFFEXOR XR 225 MG PO (08:15)
[2024-06-19] MEDS: COLACE 100 MG PO (08:16)
[2024-06-19] MEDS: TYLENOL 650 MG PO ×4 (08:16→21:13)
[2024-06-19] MEDS: ZESTRIL 10 MG PO (08:22)
[2024-06-19] MEDS: APRESOLINE 10 MG IV (08:22)
--- NOTE | 2024-06-19 08:28 | CM ---
Addendum entered by Keiko Pineda 06/19/24 11:36:
Spoke with Jami seth at [facility] and notified patient will not be discharged today.
Can accept tomorrow - discussed that NRD is 06/20
CM to continue to follow for discharge planning
Original Note:
Message left with CM by Antwan from [facility] - auth approved
Reference #:[id number]
Authorization approved - AUTH #[id number] (confirmed with [employer])
Start date 06/17 NRD 06/20
information given to Jami seth at [facility]
davidson Barrera
PLAN: [facility] SN[facility]
Report #: [phone]
Fax #: [phone]
--- NOTE | 2024-06-19 10:54 | W.PN.HOSP.TC ---
Today's Communication/Plan
-
Head CT
Troponin
500 mL of IV fluids
Stop all narcotics
Add on a BMP
Assessment / Plan
Assessment / Plan
Seen earlier. Late documentation. Patient got IV hydralazine and became hypotensive and then started having confusion. He initially complained of chest pain then complains of abdominal pain and constipation. When I went into the room he knew
that today is May 2024 but he initially thought he was in [place].
Awake complaints of constipation
Anxious
Cardiovascular system S1-S2 appreciated
Chest clear to auscultation
Abdomen soft bowels sounds hyperactive
Left thigh ecchymosis
No pedal edema
# Acute confusion with hypotension likely secondary to cerebral hypoperfusion
Check head CT
500 mL of IV fluids
Avoid narcotic-got 2 mg of morphine 2 AM
EKG
#Acute traumatic left proximal femur intertrochanteric fracture with mild impaction and varus angulation
-Status post left hip gamma nail on 06/14/[address] Velasquez.
-Aspirin for DVT prophylaxis
-Weightbearing as tolerated with walker
-Clips to be removed 2 weeks postop with 4-week orthopedic follow-up
#Acute blood loss anemia secondary to surgery. Also injections and B12 deficiency. Replace both
#Hyperlipidemia-continue simvastatin
#Hypertension-lisinopril with hold parameters
#Depression/PTSD-continue venlafaxine, trazodone, Seroquel
#Chronic pain-on gabapentin and meloxicam. Hold meloxicam
#History of C. difficile
#History of spinal fusion
#DVT prophylaxis: aspirin
#CODE STATUS: FULL CODE
Called [id number]-[id number]'s phone and updated [id number].
D/W case management
Discussed with nursing at bedside
Anticipated Discharge: Within 24 hours
Subjective/Interval History
-
Date of Service: June 19, 2024
Objective Data
-
Labs:
Laboratory Results
06/19/24
04:53
Hgb 10.3 L
Hct 32.3 L
Vital Signs:
Vital Signs
Temp Pulse Resp BP Pulse Ox
98.3 F 95 18 92/48 95
06/19/24 07:46 06/19/24 08:58 06/19/24 07:46 06/19/24 09:43 06/19/24 09:43
I&O
06/18/24 06/19/24 06/20/24
06:59 06:59 06:59
Intake Total 2770 / 2770 2029 / 2029
Output Total 1845 / 1845 3940 / 3940
Balance 925 / 925 -1909 / -1909
[2024-06-19 11:13] LABS: Troponin I 0.033 ng/ml
--- NOTE | 2024-06-19 11:33 | STATUS ---
SITUATION:
BACKGROUND:
ASSESSMENT:
RECOMMENDATION:
[2024-06-19 11:36] LABS: Blood Urea Nitrogen 14 mg/dl (9-20); Calcium 8.9 mg/dl (8.4-10.2); Carbon Dioxide 27 mmol/L (22-30); Chloride 102 mmol/L (98-107); Estimated Creatinine Clearance 80 ml/min; Glucose 93 mg/dl (70-99); Potassium 4.1 mmol/L (3.5-5.1); Sodium 137 mmol/L (135-145); eGFR > 60.00
[2024-06-19] MEDS: NSS 500 IV (12:12)
[2024-06-19] MEDS: FERRLECIT 110 MG IV (12:13)
[2024-06-19 16:23] LABS: Troponin I 0.072 ng/ml
[2024-06-19] MEDS: LIPITOR 10 MG PO (16:48)
[2024-06-19] MEDS: NSS 1000 IV (16:48)
[2024-06-19] MEDS: COLACE PO (19:32)
[2024-06-19] MEDS: SENOKOT PO (19:33)
[2024-06-19] MEDS: DESYREL 150 MG PO (21:13)
[2024-06-19 22:54] LABS: Troponin I 0.038 ng/ml
[2024-06-20] VITALS (8 sets, daily range): BP systolic 103–187; BP diastolic 54–95; PULSE 81–107; O2SAT 96
[2024-06-20] MEDS: TYLENOL 650 MG PO ×5 (04:48→23:38)
[2024-06-20 05:06] LABS: Hematocrit 31.8 % (39.0-52.0); Hemoglobin 10.1 g/dL (13.0-18.0); Mean Corp Hgb Conc. 31.8 g/dL (33.0-37.0); Mean Corpuscular Volume 88.1 fL (80.0-94.0); Platelet Count 239 10^3/uL (130-400); Red Blood Cell Count 3.61 10^6/uL (4.70-6.10); Red Cell Dist. Width 15.8 % (11.5-14.5); White Blood Cell Count 5.7 10^3/uL (4.8-10.8)
[2024-06-20 05:27] LABS: Blood Urea Nitrogen 23 mg/dl (9-20); Calcium 8.3 mg/dl (8.4-10.2); Carbon Dioxide 24 mmol/L (22-30); Chloride 107 mmol/L (98-107); Estimated Creatinine Clearance 62 ml/min; Glucose 108 mg/dl (70-99); Potassium 3.8 mmol/L (3.5-5.1); Sodium 139 mmol/L (135-145); eGFR > 60.00
--- NOTE | 2024-06-20 06:01 | W.PN.HOSP.TC ---
Today's Communication/Plan
-
observe
cont pain control
blood pressure control
discharge planning SNF rehab tomorrow if remains stable/cont to improve
Assessment / Plan
Assessment / Plan
Physical Exam
General: no acute distress appears comfortable at this time
HEENT: normocephalic atraumatic
Cardio: S1-S2 NSR
Chest: Clear to auscultation
Abdomen: soft nontender bowel sounds present
MSK: Left thigh ecchymosis
Ext: No edema
Neuro: AOx3
Psych: calm
78M HLD HTN Depression PTSD chronic pain hx spine fusion here for hip fx s/p ORIF
# Acute confusion likely d/t hypotension possible polypharmacy- combination antihypertensive and pain medications
CT head appreciated no acute abn's
received IV Fluid bolus with good response noted
EKG NSR
pain medications reduced to prn Oxycodone 2.5 mg
prn Hydralazine reduced to 5mg from 10
#Acute traumatic left proximal femur intertrochanteric fracture with mild impaction and varus angulation
-Status post left hip gamma nail on 06/14/[address] Velasquez.
-Aspirin for DVT prophylaxis
-Weightbearing as tolerated with walker
-Clips to be removed 2 weeks postop with 4-week orthopedic follow-up
#Acute blood loss anemia secondary to surgery
#B12 deficiency
Hgb improving
cont B12 supplementation
#Hyperlipidemia-continue simvastatin
#Hypertension-lisinopril with hold parameters
#Depression/PTSD-continue venlafaxine, trazodone, Seroquel
#Chronic pain-on gabapentin and meloxicam. Hold meloxicam
#History of C. difficile
#History of spinal fusion
#DVT prophylaxis: aspirin
#CODE STATUS: FULL CODE
I spent a total of 40 minutes with the patient or on the floor. More than 50% of this time involved counseling and coordination of care.
Anticipated Discharge: Within 24 hours
Subjective/Interval History
-
Date of Service: June 20, 2024
Appears symptomatically improved. AOx3, patient reports overall feeling well. Pain well controlled at this time.
Objective Data
-
Labs:
Laboratory Results
06/20/24
04:46
WBC 5.7
Hgb 10.1 L
Hct 31.8 L
Plt Count 239 D
Sodium 139
Potassium 3.8
Chloride 107
Carbon Dioxide 24
BUN 23 H
Creatinine 0.9
Glucose 108 H
Calcium 8.3 L
Vital Signs:
Vital Signs
Temp Pulse Resp BP Pulse Ox
97.7 F 82 20 105/55 94
06/19/24 23:20 06/20/24 03:24 06/20/24 03:24 06/20/24 03:24 06/20/24 03:24
I&O
06/18/24 06/19/24 06/20/24
06:59 06:59 06:59
Intake Total 2770 / 2770 2030 / 2030 1320 / 1320
Output Total 1845 / 1845 3940 / 3940 550 / 550
Balance 925 / 925 -1910 / -1910 770 / 770
[2024-06-20] MEDS: NSS 1000 IV (07:18)
[2024-06-20] MEDS: ASPIRIN 325 MG PO (08:48)
[2024-06-20] MEDS: NEURONTIN 300 MG PO ×3 (08:48→22:06)
[2024-06-20] MEDS: PROTONIX 40 MG PO (08:48)
[2024-06-20] MEDS: SEROQUEL 100 MG PO (08:48)
[2024-06-20] MEDS: SENOKOT PO ×2 (08:49→20:59)
[2024-06-20] MEDS: FLOMAX 0.4 MG PO (08:49)
[2024-06-20] MEDS: EFFEXOR XR 225 MG PO (08:49)
[2024-06-20] MEDS: ZESTRIL 10 MG PO (08:49)
[2024-06-20] MEDS: CYANOCOBALAMIN 1000 MCG IM (08:50)
[2024-06-20] MEDS: COLACE PO ×2 (08:50→20:59)
--- NOTE | 2024-06-20 09:12 | CM ---
[facility] called [facility] ([phone]) to update patient has not yet transferred to SNF and NRD is 06/20
Spoke with Mick Heller who stated that facility can admit up until tomorrow by 11:59pm - once admitted the ins CM will adjust the date to new start date & NRD. Option #2 - facility can call to inform the members admit date and they will adjust dates.
Authorization approved - AUTH #[id number]
Start date 06/17 NRD 06/20
Fax: [phone] Padilla
Spoke to Jami seth at [facility] & updated.
PLAN: [facility]
Report #: [phone]
Fax #: [phone]
[2024-06-20] MEDS: TYLENOL PO (12:36)
[2024-06-20] MEDS: LIPITOR 10 MG PO (17:02)
[2024-06-20] MEDS: DESYREL 150 MG PO (22:06)
[2024-06-21] VITALS (7 sets, daily range): BP systolic 125–185; BP diastolic 68–89; PULSE 76
[2024-06-21] MEDS: APRESOLINE 5 MG IV (02:38)
[2024-06-21] MEDS: TYLENOL PO (04:10)
[2024-06-21] MEDS: ZESTRIL 10 MG PO (04:45)
--- NOTE | 2024-06-21 05:28 | DOWNTIME ---
There was a [employer] Downtime on 06/21/2024 from 0100 to 06/21/2024 at 0350. Downtime documentation of patient's care, including medication administrations, has been reconciled in the electronic record per guidelines. Refer to the
patient's paper chart under the miscellaneous tab to see printed paper medication records and downtime forms.
--- NOTE | 2024-06-21 07:09 | W.PN.HOSP.TC ---
Today's Communication/Plan
-
start low dose amlodipine 2.5 mg HS
blood pressure control
pain control
PT/OT
anticipate discharge tomorrow SNF rehab provided patient remains stable/continues to improve
Assessment / Plan
Assessment / Plan
Physical Exam
General: no acute distress appears comfortable at this time
HEENT: normocephalic atraumatic
Cardio: S1-S2 NSR
Chest: Clear to auscultation
Abdomen: soft nontender bowel sounds present
MSK: Left thigh ecchymosis
Ext: No edema
Neuro: AOx3
Psych: calm
78M HLD HTN Depression PTSD chronic pain hx spine fusion here for hip fx s/p ORIF
# Acute confusion likely d/t hypotension possible polypharmacy, Toxic Metabolic Encephalopathy- combination antihypertensive and pain medications
CT head appreciated no acute abn's
received IV Fluid bolus with good response noted
EKG NSR
pain medications reduced to prn Oxycodone 2.5 mg
prn Hydralazine reduced to 5mg from 10
#Acute traumatic left proximal femur intertrochanteric fracture with mild impaction and varus angulation
-Status post left hip gamma nail on 06/14/[address] Velasquez.
-Aspirin for DVT prophylaxis
-Weightbearing as tolerated with walker
-Clips to be removed 2 weeks postop with 4-week orthopedic follow-up
#Acute blood loss anemia secondary to surgery
#B12 deficiency
Hgb improving
cont B12 supplementation
#Nonischemic Myocardial Injury
-Troponin peaked 0.072 since resolved, Chest pain free
#Hypertensive urgency
cont home lisinopril
start bedtime amlodipine low dose 2.5 mg HS (started low dose due to earlier episodes severe hypotension since resolved)
hydralazine prn
#Hyperlipidemia-continue simvastatin
#Depression/PTSD-continue venlafaxine, trazodone, Seroquel
#Chronic pain-on gabapentin and meloxicam. Hold meloxicam
#History of C. difficile
#History of spinal fusion
#DVT prophylaxis: aspirin
#CODE STATUS: FULL CODE
Discussed with patient's POChanning Littler [phone] [id number] who shares decision making with pt's [id number] Ahmet Flaherty same contact number.
I spent a total of 40 minutes with the patient or on the floor. More than 50% of this time involved counseling and coordination of care.
Anticipated Discharge: Within 24 hours
Subjective/Interval History
-
Date of Service: June 21, 2024
No acute distress, appears comfortable, pain well controlled at this time. Blood pressure overnight however notably uncontrolled/high appears relatively asymptomatic at this time. Denies lightheadedness headache blurry vision.
Objective Data
-
Vital Signs:
Vital Signs
Temp Pulse Resp BP Pulse Ox
98 F 85 18 175/76 98
06/21/24 04:18 06/21/24 04:18 06/21/24 04:18 06/21/24 04:18 06/21/24 04:18
I&O
06/20/24 06/21/24 06/22/24
06:59 06:59 06:59
Intake Total 1320 / 1320 1260 / 1260
Output Total 550 / 550 1090 / 1090
Balance 770 / 770 170 / 170
[2024-06-21] MEDS: ASPIRIN 325 MG PO (07:29)
[2024-06-21] MEDS: PROTONIX 40 MG PO (07:29)
[2024-06-21] MEDS: NEURONTIN 300 MG PO ×3 (07:29→22:32)
[2024-06-21] MEDS: VITAMIN B-12 1000 MCG PO (07:30)
[2024-06-21] MEDS: TYLENOL 650 MG PO ×4 (07:30→19:53)
[2024-06-21] MEDS: SEROQUEL 100 MG PO (07:30)
[2024-06-21] MEDS: EFFEXOR XR 225 MG PO (07:30)
[2024-06-21] MEDS: FLOMAX 0.4 MG PO (07:30)
[2024-06-21] MEDS: COLACE PO ×2 (07:31→19:52)
[2024-06-21] MEDS: SENOKOT PO ×2 (07:32→19:52)
--- NOTE | 2024-06-21 08:48 | CM ---
Addendum entered by Primo Solorio 06/21/24 13:30:
Called [facility] to initiate new auth. Spoke w/ Modesta ([phone]) who consulted clinician overseeing current auth. CM was informed that per clinician, the current auth will be withdrew to avoid any complications for starting new auth.
Updated clinicals faxed to [phone], pending determination.
Per Modesta, pending ref# will be provided once clinicials have been received
CM will cont to follow for auth determination
Addendum entered by Primo Solorio 06/21/24 10:37:
Per hospitalist, d/c on hold for another day to get pt's BP under better control.
Since auth was good up until today, new auth will need to be obtained
Jami/[facility] updated
Original Note:
CM spoke belle/ Larisa Kebede ([phone])- [facility] re authorization.
Explained pt's NRD was 06/20 and if dates can be adjusted for pt to admit to SNF today
Larisa explained that there is a 24 hour sharon period and auth is still good for today if pt admits and the facility will need to let the behavioral health case manager know once pt admits so the dates can be adjusted.
CM spoke w/ Jami/[facility] informing of what Larisa explained. Per Jami, this was confirmed w/ their contact and is agreeable to pt admitting today w/ the understanding that they will have to connect with the insurance to adjust dates of the
authorization.
TT hospitalist re d/c today
Ambulance transport
IMM reviewed, copy in chart
[facility]
Report #: [phone]
Fax #: [phone]
Plan: [facility]
--- NOTE | 2024-06-21 15:30 | PN.CDI ---
CDI
- -
CDI:
Physician Documentation Request
Admit Date: 06/13/24 18:10
Dear Doctor Randy,
Please review the following and provide your response in the progress notes.
Clinical Indicators:
Pt admitted with acute traumatic left proximal femur intertrochanteric fracture.
06/20 Progress Note: 'Acute confusion likely d/t hypotension possible polypharmacy- combination antihypertensive and pain medications...
CT head appreciated no acute abn's..ain medications reduced to prn Oxycodone 2.5 mg.'
P t also admitted with ALIREZA
Based on the above, could you clarify in the Progress Notes and Discharge Summary which, if any of the following, is the most likely etiology of the confusion/altered mental status.
Toxic Metabolic Encephalopathy
Acute Confusion only
Other
Use of terms such as suspected, likely, concern for, or probable (associated with a specific diagnosis that is being evaluated, monitored, or treated as if it exists) are acceptable and can be coded in the inpatient setting, when documented at the
time of discharge.
Thank you,
Geovanna Burdick RN, BSN
CDI Specialist
Available via [employer]
Please use your independent medical judgment in providing your response.
[2024-06-21] MEDS: ROXICODONE 2.5 MG PO (15:31)
--- NOTE | 2024-06-21 15:46 | PN.CDI ---
CDI
- -
CDI:
Physician Documentation Request
Admit Date: 06/13/24 18:10
Dear Doctor Randy,
Please review the following and provide your response in the progress notes.
Clinical Indicators:
Pt admitted with acute traumatic left proximal femur intertrochanteric fracture.
Laboratory Tests
06/19/24 06/19/24 06/19/24
10:23 15:49 22:22
Troponin I 0.033 0.072 H* D 0.038 H* D
Based on the above, could you clarify in the progress notes, the appropriate diagnosis, if significant, that supports the above lab abnormalities and additional evaluation, monitoring and/or treatment rendered:
Non-Ischemic myocardial injury
Insignificant abnormal lab values
Other
Use of terms such as suspected, likely, concern for, or probable (associated with a specific diagnosis that is being evaluated, monitored, or treated as if it exists) are acceptable and can be coded in the inpatient setting, when documented at the
time of discharge.
Thank you,
Geovanna Burdick RN, BSN
CDI Specialist
Available via [employer]
Please use your independent medical judgment in providing your response.
[2024-06-21] MEDS: LIPITOR 10 MG PO (17:09)
[2024-06-21] MEDS: ULTRAM 25 MG PO (20:28)
[2024-06-21] MEDS: NORVASC 2.5 MG PO (22:29)
[2024-06-21] MEDS: DESYREL 150 MG PO (22:32)
[2024-06-22] MEDS: TYLENOL PO ×2 (00:35→04:35)
--- NOTE | 2024-06-22 07:29 | W.PN.HOSP.TC ---
Today's Communication/Plan
-
cont blood pressure control
pain control, oxycodone prn increased to 5 mg from 2.5
Trazodone increased to 200 mg HS
discharge planning SNF rehab
Assessment / Plan
Assessment / Plan
Physical Exam
General: mild moderate distress d/t pain LLE
HEENT: normocephalic atraumatic
Cardio: S1-S2 NSR
Chest: Clear to auscultation
Abdomen: soft nontender bowel sounds present
MSK: Left thigh ecchymosis
Ext: No edema
Neuro: AOx3
Psych: calm
78M HLD HTN Depression PTSD chronic pain hx spine fusion here for hip fx s/p ORIF
# Acute confusion likely d/t hypotension possible polypharmacy, Toxic Metabolic Encephalopathy- combination antihypertensive and pain medications
CT head appreciated no acute abn's
received IV Fluid bolus with good response noted
EKG NSR
pain medications reduced to prn Oxycodone 2.5 mg later increased to 5mg due to uncontrolled pain
prn Hydralazine reduced to 5mg from 10
#Acute traumatic left proximal femur intertrochanteric fracture with mild impaction and varus angulation
-Status post left hip gamma nail on 06/14/[address] Velasquez.
-Aspirin for DVT prophylaxis
-Weightbearing as tolerated with walker
-Clips to be removed 2 weeks postop with 4-week orthopedic follow-up
#Acute blood loss anemia secondary to surgery
#B12 deficiency
Hgb improving
cont B12 supplementation
#Nonischemic Myocardial Injury
-Troponin peaked 0.072 since resolved, Chest pain free
#Hypertensive urgency
cont home lisinopril
start bedtime amlodipine low dose 2.5 mg HS (started low dose due to earlier episodes severe hypotension since resolved)
hydralazine prn
#Hyperlipidemia-continue simvastatin
#Depression/PTSD-continue venlafaxine, trazodone, Seroquel
-noted poor sleep, previously on trazodone 300 mg HS prior to hospitalization, had been doing well on 150 mg HS here until recently
-increased trazodone to 200 mg for now, advancing cautiously d/t early metabolic encephalopathy hypotension as noted above
#Chronic pain-on gabapentin and meloxicam. Hold meloxicam
#History of C. difficile
#History of spinal fusion
#DVT prophylaxis: aspirin
#CODE STATUS: FULL CODE
Discussed with patient's POA Mare Birminghamehr [phone] [id number] who shares decision making with pt's [id number] Ahmet Flaherty same contact number.
I spent a total of 40 minutes with the patient or on the floor. More than 50% of this time involved counseling and coordination of care.
Anticipated Discharge: 24 - 48 hours
Subjective/Interval History
-
Date of Service: June 22, 2024
reports pain uncontrolled with current regimen and poor sleep
Objective Data
-
Vital Signs:
Vital Signs
Temp Pulse Resp BP Pulse Ox
98.3 F 70 18 169/77 98
06/21/24 22:36 06/21/24 22:36 06/21/24 22:36 06/21/24 22:36 06/21/24 22:36
I&O
06/21/24 06/22/24 06/23/24
06:59 06:59 06:59
Intake Total 1260 / 1260 1200 / 1200
Output Total 1090 / 1090 1100 / 1100
Balance 170 / 170 100 / 100
[2024-06-22 07:50] VITALS: BP 179/77
[2024-06-22] MEDS: SENOKOT 17.2 MG PO ×2 (08:37→20:04)
[2024-06-22] MEDS: NEURONTIN 300 MG PO ×3 (08:37→22:23)
[2024-06-22] MEDS: TYLENOL 650 MG PO ×4 (08:38→20:04)
[2024-06-22] MEDS: EFFEXOR XR 225 MG PO (08:38)
[2024-06-22] MEDS: COLACE 100 MG PO ×2 (08:38→20:04)
[2024-06-22] MEDS: VITAMIN B-12 1000 MCG PO (08:38)
[2024-06-22] MEDS: ZESTRIL 10 MG PO (08:38)
[2024-06-22] MEDS: PROTONIX 40 MG PO (08:38)
[2024-06-22] MEDS: ASPIRIN 325 MG PO (08:38)
[2024-06-22] MEDS: FLOMAX 0.4 MG PO (08:39)
[2024-06-22] MEDS: SEROQUEL 100 MG PO (08:39)
[2024-06-22] MEDS: ROXICODONE 2.5 MG PO ×2 (10:14→10:48)
[2024-06-22 11:12] VITALS: BP 160/75; PULSE 76; O2SAT 98
[2024-06-22 15:44] VITALS: BP 141/68
[2024-06-22] MEDS: ROXICODONE 5 MG PO (16:58)
[2024-06-22] MEDS: LIPITOR 10 MG PO (16:58)
[2024-06-22 22:21] VITALS: BP 118/67
[2024-06-22] MEDS: NORVASC PO (22:22)
[2024-06-22] MEDS: DESYREL 200 MG PO (22:23)
[2024-06-23] MEDS: TYLENOL 650 MG PO ×3 (00:26→13:09)
[2024-06-23] MEDS: TYLENOL PO (04:13)
[2024-06-23 06:27] LABS: Hematocrit 29.4 % (39.0-52.0); Hemoglobin 9.8 g/dL (13.0-18.0); Mean Corp Hgb Conc. 33.3 g/dL (33.0-37.0); Mean Corpuscular Hgb 29.3 pg (27.0-31.0); Platelet Count 238 10^3/uL (130-400); Red Blood Cell Count 3.34 10^6/uL (4.70-6.10); Red Cell Dist. Width 17.1 % (11.5-14.5); White Blood Cell Count 5.4 10^3/uL (4.8-10.8)
[2024-06-23 06:52] LABS: Blood Urea Nitrogen 20 mg/dl (9-20); Calcium 8.3 mg/dl (8.4-10.2); Carbon Dioxide 25 mmol/L (22-30); Chloride 106 mmol/L (98-107); Estimated Creatinine Clearance 70 ml/min; Glucose 96 mg/dl (70-99); Magnesium 1.8 mg/dl (1.6-2.3); Phosphorus 3.4 mg/dl (2.5-4.5); Potassium 4.4 mmol/L (3.5-5.1); Sodium 139 mmol/L (135-145); eGFR > 60.00
--- NOTE | 2024-06-23 07:07 | W.PN.HOSP.TC ---
Today's Communication/Plan
-
discharge
Assessment / Plan
Assessment / Plan
Physical Exam
General: no acute distress, comfortable
HEENT: normocephalic atraumatic
Cardio: S1-S2 NSR
Chest: Clear to auscultation
Abdomen: soft nontender bowel sounds present
Ext: No edema
Neuro: AOx3
Psych: calm
78M HLD HTN Depression PTSD chronic pain hx spine fusion here for hip fx s/p ORIF
# Acute confusion likely d/t hypotension possible polypharmacy, Toxic Metabolic Encephalopathy- combination antihypertensive and pain medications
CT head appreciated no acute abn's
received IV Fluid bolus with good response noted
EKG NSR
pain medications reduced to prn Oxycodone 2.5 mg later increased to 5mg due to uncontrolled pain
prn Hydralazine reduced to 5mg from 10
AMS since resolved
#Acute traumatic left proximal femur intertrochanteric fracture with mild impaction and varus angulation
-Status post left hip gamma nail on 06/14/[address] Velasquez.
-Aspirin for DVT prophylaxis
-Weightbearing as tolerated with walker
-Clips to be removed 2 weeks postop with 4-week orthopedic follow-up
#Acute blood loss anemia secondary to surgery
#B12 deficiency
Hgb improving
cont B12 supplementation
#Nonischemic Myocardial Injury
-Troponin peaked 0.072 since resolved, Chest pain free
#Hypertensive urgency
cont home lisinopril
start bedtime amlodipine low dose 2.5 mg HS (started low dose due to earlier episodes severe hypotension since resolved)
hydralazine prn
Blood pressure improved, tolerating BP medications.
#Hyperlipidemia-continue simvastatin
#Depression/PTSD-continue venlafaxine, trazodone, Seroquel
-noted poor sleep, previously on trazodone 300 mg HS prior to hospitalization, had been doing well on 150 mg HS here until recently
-increased trazodone to 200 mg for now, advanced cautiously d/t early metabolic encephalopathy hypotension as noted above
-sleep since improved
#Chronic pain-on gabapentin and meloxicam. Hold meloxicam
#History of C. difficile
#History of spinal fusion
#DVT prophylaxis: aspirin
#CODE STATUS: FULL CODE
Medically stable for discharge SNF rehab with outpatient follow up recommendations.
Discussed with patient and patient's POA Mare Sidneyr [phone] [id number] who shares decision making with pt's [id number] Ahmet Flaherty same contact number.
Total Time Preparing Discharge ___40____ minutes including examination of the patient, summary of the hospital stay, instructions for continuing care to all relevant caregivers; and preparation of discharge records, prescriptions, and referral
forms if necessary.
Anticipated Discharge: Today
Subjective/Interval History
-
Date of Service: June 23, 2024
No acute distress. Reports feeling well. Denies new acute issues. Eager for discharge to SNF rehab.
Objective Data
-
Labs:
Laboratory Results
06/23/24
04:38
WBC 5.4
Hgb 9.8 L
Hct 29.4 L
Plt Count 238
Sodium 139
Potassium 4.4
Chloride 106
Carbon Dioxide 25
BUN 20
Creatinine 0.8
Glucose 96
Calcium 8.3 L
Vital Signs:
Vital Signs
Temp Pulse Resp BP Pulse Ox
97.4 F 70 18 118/67 97
06/22/24 22:21 06/22/24 22:22 06/22/24 22:21 06/22/24 22:22 06/22/24 22:21
I&O
06/22/24 06/23/24 06/24/24
06:59 06:59 06:59
Intake Total 1200 / 1200 1200 / 1200
Output Total 1100 / 1100 1000 / 1000
Balance 100 / 100 200 / 200
[2024-06-23 07:20] VITALS: BP 167/82
[2024-06-23] MEDS: SENOKOT 17.2 MG PO (08:25)
[2024-06-23] MEDS: SEROQUEL 100 MG PO (08:25)
[2024-06-23] MEDS: COLACE 100 MG PO (08:25)
[2024-06-23] MEDS: ROXICODONE 5 MG PO ×2 (08:26→15:08)
[2024-06-23] MEDS: ZESTRIL 10 MG PO (08:26)
[2024-06-23] MEDS: PROTONIX 40 MG PO (08:27)
[2024-06-23] MEDS: VITAMIN B-12 1000 MCG PO (08:27)
[2024-06-23] MEDS: ASPIRIN 325 MG PO (08:27)
[2024-06-23] MEDS: EFFEXOR XR 225 MG PO (08:27)
[2024-06-23] MEDS: FLOMAX 0.4 MG PO (08:27)
[2024-06-23] MEDS: NEURONTIN 300 MG PO (08:27)
[2024-06-23 09:15] VITALS: BP 157/77
[2024-06-23 09:24] VITALS: BP 157/77; PULSE 75
--- NOTE | 2024-06-23 09:32 | CM ---
Addendum entered by Brianna Aguilar RN 06/23/24 10:11:
IMM signed and placed on chart. Patient informed of auth approval.
Original Note:
Reviewed the chart notes. CM received auth#[id number] approved; 06/21-06/26; NRD 06/26 with reviewer Radha Briceno [phone], fax: [phone].
Plan: Discharge to [facility] when medically stable.
Report #: [phone]
Fax #: [phone]
Medical necessity and transport forms on chart.
--- NOTE | 2024-06-23 12:51 | W.DCSUMMARY ---
Discharge Summary
Discharge Data
Date of Admission: 06/13/24
Date of Discharge: 06/23/24
-
Pending Results: No
Discharge Plan
-
Patient Disposition: Jail/SNF
Discharge Diagnosis/Procedures: Left hip fracture status post gamma nail fixation 06/14/24
Postoperative Acute Blood Loss Anemia since resolved
B12 deficiency
Hypertensive Urgency
Toxic Metabolic Encephalopathy Hypotension since resolved likely due to polypharmacy
Hyperlipidemia
Depression/PTSD
Chronic Pain Neuropathy
History Spine Fusion
Condition: Good
Diet: Regular
Activity: As tolerated and With Walker
Driving Restrictions: Not until seen by your Dr
Bathing Restrictions: OK to Shower
Blood Work: Repeat CBC and BMP with primary care provider in 1 week of discharge.
Other Services: PT and OT
Wound Care: Skin clip removal 2 weeks post-op due 06/28/24
Activity Restrictions/Additional Instructions:
Follow up with primary care provider in 1 week of discharge and Orthopedic in 2-3 weeks of discharge.
aspirin tablet 325 mg PO DAILY has been prescribed for DVT prophylaxis recommended for 4 weeks post-op (10 days have been completed, 18 days left)
cyanocobalamin (vitamin B-12) 1,000 mcg PO DAILY Supplement has been prescribed for B12 deficiency
ferrous sulfate 325 mg (65 mg iron) tablet 325 mg PO DAILY Supplement prescribed for iron deficiency anemia
home gabapentin has been reduced to 300 mg PO TID due to concerns polypharmacy
amlodipine 2.5 mg tablet 2.5 mg PO HS has been added for better blood pressure control
trazodone has been reduced to 200 mg HS (previously took 300 mg). This is also to reduce polypharmacy
oxycodone 5 mg PO Q6HPRN PRN has been prescribed for moderate-severe pain.
Please take medications as prescribed/recommended and follow up with primary care provider and/or other healthcare provider involved in your care for refills and/or further adjustment to your medication regimen as necessary.
Instructions: Hip fracture
Referrals:
Irwin Anthony MD [Family Provider] - in one week
Ronal Velasquez MD [Active] - in two to three weeks (Please follow-up at 4 weeks from date of surgery with plan for x-rays; please perform these at an outside facility if you are unable to transfer. If you are discharged to home at 2 weeks from
surgery we will follow-up in the office for staple removal and wound check otherwise this can be performed at a rehab facility/retirement facility)
Prescriptions:
New
aspirin 325 mg Tablet
325 mg PO DAILY 18 Days Qty: 18 0RF
cyanocobalamin (vitamin B-12) 1,000 mcg capsule
1,000 mcg PO DAILY 30 Days Qty: 30 0RF
gabapentin 300 mg Capsule
300 mg PO TID 30 Days Qty: 90 0RF
ferrous sulfate 325 mg (65 mg iron) tablet
325 mg PO DAILY 30 Days Qty: 30 0RF
amlodipine 2.5 mg Tablet
2.5 mg PO HS Qty: 30 0RF
oxycodone 5 mg Tablet
5 mg PO Q6HPRN PRN (Reason: moderate-severe pain) Qty: 20 0RF
Continued
venlafaxine 75 MG tablet
225 mg PO DAILY
meloxicam 15 mg Tablet
15 mg PO DAILY
simvastatin 20 mg Tablet
20 mg PO HS
lisinopril 10 mg Tablet
10 mg PO DAILY
acetaminophen [Tylenol Extra Strength] 500 mg Tablet
500 mg PO DAILY
tamsulosin 0.4 mg Capsule
0.4 mg PO DAILY
omeprazole 20 mg Capsule,Delayed Release(Dr/Ec)
40 mg PO DAILY
quetiapine 50 mg Tablet
100 mg PO DAILY
Changed
trazodone 100 mg Tablet
200 mg PO HS Qty: 0 0RF
Discontinued
gabapentin 600 mg Tablet
600 mg PO TID
Discharge Orders:
Discharge Patient (As Directed); Ordered 06/23/24
Ordered By: Stu Padilla
Discharge Date and Time
Print Language: PORTUGUESE
[2024-06-23 13:55] VITALS: BP 107/57
== END 2024-06-23 15:40 | DRG 480 ==
LOC: 2 SOUTH 18:10
PROVIDERS: Nurse Practitioner Family; Orthopaedic Surgery Hand Surgery; Registered Nurse; Student in an Organized Health Care Education/Training Program; ADMITTING PHYSICIAN Hospitalist; ATTENDING PHYSICIAN Internal Medicine; CONSULT PHYSICIAN Specialist; EMERGENCY PHYSICIAN Emergency Medicine; FAMILY PHYSICIAN Family Medicine
PROC: 0QS706Z Reposition Left Upper Femur with Intramedullary Internal Fixation Device, Open Approach (ICD-10-PCS; 2024-06-13)
DX: S72.142A Displaced intertrochanteric fracture of left femur, initial encounter for closed fracture (principal); G92.8 Other toxic encephalopathy; D62 Acute posthemorrhagic anemia; F02.A3 Dementia in other diseases classified elsewhere, mild, with mood disturbance; N17.9 Acute kidney failure, unspecified; I5A Non-ischemic myocardial injury (non-traumatic); E87.5 Hyperkalemia; G89.29 Other chronic pain; I11.9 Hypertensive heart disease without heart failure; G20.A1 Parkinson's disease without dyskinesia, without mention of fluctuations; E78.00 Pure hypercholesterolemia, unspecified; F32.A Depression, unspecified; F43.10 Post-traumatic stress disorder, unspecified; T40.2X5A Adverse effect of other opioids, initial encounter; Y92.239 Unspecified place in hospital as the place of occurrence of the external cause; E53.8 Deficiency of other specified B group vitamins; I95.9 Hypotension, unspecified; I16.0 Hypertensive urgency; G62.9 Polyneuropathy, unspecified; R41.0 Disorientation, unspecified; W10.8XXA Fall (on) (from) other stairs and steps, initial encounter; Y93.01 Activity, walking, marching and hiking; Y92.008 Other place in unspecified non-institutional (private) residence as the place of occurrence of the external cause; Z79.1 Long term (current) use of non-steroidal anti-inflammatories (NSAID); Z98.1 Arthrodesis status; Z90.49 Acquired absence of other specified parts of digestive tract; Z87.891 Personal history of nicotine dependence
CPT/HCPCS: 70450; 73502; 76000; 80048; 80053; 81003; 82306; 82607; 82728; 83540; 83550; 83735; 84100; 84300; 84484; 85014; 85018; 85025; 85027; 85610; 86850; 86900; 86901; 93005; 93306; 96374; 97110; 97116; 97163; 97167; 97530; 97535; 99285; C1713; J2916

== ENCOUNTER 2024-12-21 22:43 | Emergency (ER) | payer MEDICARE, SELFPAY ==
[2024-12-21 23:00] VITALS: BP 191/88
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
[2024-12-21 23:54] LABS: % Basophils 0.2 % (0-2); % Eosinophils 1.7 % (0-6); % Immature Granulocytes 0.2 % (0-0.5); % Lymphocytes 20.6 % (20.5-51.1); % Neutrophils 67.3 % (42.2-75.2); Absolute Eosinophils 0.1 10^3/uL (0-0.7); Absolute Lymphocytes 0.9 10^3/uL (1.2-3.4); Absolute Monocytes 0.4 10^3/uL (0.1-0.6); Absolute Neutrophils 2.8 10^3/uL (1.4-6.5); Hematocrit 38.8 % (39.0-52.0); Hemoglobin 13.3 g/dL (13.0-18.0); Mean Corp Hgb Conc. 34.3 g/dL (33.0-37.0); Mean Corpuscular Hgb 31.4 pg (27.0-31.0); Mean Corpuscular Volume 91.5 fL (80.0-94.0); Mean Platelet Volume 10.7 fL (7.4-10.4); Nucleated Red Blood Cells % 0 % (-); Platelet Count 169 10^3/uL (130-400); Red Blood Cell Count 4.24 10^6/uL (4.70-6.10); Red Cell Dist. Width 13.9 % (11.5-14.5); White Blood Cell Count 4.2 10^3/uL (4.8-10.8)
[2024-12-22 00:13] LABS: Blood Urea Nitrogen 16 mg/dl (9-20); Carbon Dioxide 23 mmol/L (22-30); Chloride 110 mmol/L (98-107); Glucose 105 mg/dl (70-99); Potassium 3.7 mmol/L (3.5-5.1); Sodium 141 mmol/L (135-145); eGFR > 60.00
[2024-12-22 00:18] VITALS: BP 179/82
[2024-12-22 10:28] LABS: COVID-19 Antigen Negative (Negative)
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
[2024-12-22] MEDS: NEURONTIN 300 MG PO (16:12)
[2024-12-22 16:16] VITALS: BP 172/89
== END 2024-12-22 19:18 ==
LOC: EMR 22:43
PROVIDERS: Emergency Medicine; EMERGENCY PHYSICIAN Emergency Medicine
DX: R45.851 Suicidal ideations (principal); I10 Essential (primary) hypertension; E78.00 Pure hypercholesterolemia, unspecified; G20.A1 Parkinson's disease without dyskinesia, without mention of fluctuations
CPT/HCPCS: 99285; 70450; 70498; 80048; 85025; 87811; Q9967

== ENCOUNTER 2025-05-18 19:02 | Inpatient (IN) | payer MEDICARE, SELFPAY ==
[2025-05-18] VITALS (21 sets, daily range): BP systolic 89–148; BP diastolic 43–129; BMI 27.2; BMI 25.8
[2025-05-18] MEDS: NSS 1000 IV ×2 (13:54→15:26)
--- NOTE | 2025-05-18 13:55 | ED.GENMED ---
History of Present Illness
General
Chief Complaint: Change in Mental Status
Time Seen by Provider: 05/18/25 13:22
Nursing documentation reviewed up to this point in time: agreed with
History of Present Illness
History of Present Illness:
79-year-old male brought to the ER by EMS for evaluation of altered mental status. Patient lives at home alone and receives Meals on Wheels. He was last seen on Wednesday-a wellness check had been called to check on the patient. He was found
laying on the floor. Patient is having a hard time articulating his speech at time of initial arrival due to lack of oral moisture. He does also have an extensive prior medical history including dementia and Parkinson's. He denies any complaints
of pain. Patient was found covered in brown stool
Past History
Past History
ED Past Medical History: HTN, Hypercholesterolemia, Psychiatric and Other (Parkinson's disease)
ED Past Surgical History: Cholecystectomy, Orthopedic and Tonsilectomy
Social History
Tobacco: Non-smoker
Alcohol: None
Drug: None
Personal:
Living: alone
Employment: Retired
Family History
Family History: Other
Review of Systems
Review of Systems
Allergies reviewed?: Yes
Phy Exam
Physical Exam
Physical Exam:
Patient is awake, alert, appears in no acute distress, head is NCAT, PERRL, EOMI mucous membranes very dry, conjunctiva pink, heart regular rate and rhythm without murmurs or ectopy, lungs are clear to auscultation without wheezes rales or rhonchi,
no JVD, abdomen is soft and nontender on palpation, extremities without edema, GCS is 14 due to confusion, no evidence of skin breakdown noted on back, linear superficial laceration noted along the distal aspect of the great toe with dried blood
present
Course
Orders/Labs/Results
Orders:
Orders
05/18/25 13:22
Electrocardiogram (*1) Urgent
Reason for Study: Other
Other Reason for Exam: trauma
CT Cervical Spine W/o Iv Contr Urgent
Comment:
Reason For Exam: trauma
CT Head W/o Iv Contrast Urgent
Comment:
Reason For Exam: trauma
Cardiac Monitoring- Treatment ONCE
EKG- Treatment ONCE
0.9% Sodium Chloride 1000 ml [Nss] 1,000 ml IV BOLUS
05/18/25 13:33
Complete Blood Count/With Diff Urgent
05/18/25 13:39
Urinalysis Reflex To Culture Urgent
Date Specimen was Collected: 05/18/25
Time Specimen was Collected: 13:36
Urine Drug Abuse Screen Urgent
Date Specimen was Collected: 05/18/25
Time Specimen was Collected: 13:36
Urine Microscopic Reflex Cult Urgent
05/18/25 14:08
Type+Screen Urgent
BBK Wristband Number:
05/18/25 14:19
Alcohol Urgent
CPK Isoenzyme Urgent
Comprehensive Metabolic Panel Urgent
Magnesium Urgent
05/18/25 15:00
Chest/Abd/Pelvis wo Contrast CT [CT Chest/abd/pel Wo Iv Cont] Urgent
Comment:
Reason For Exam: trauma
05/18/25 15:04
Cefepime HCl [Maxipime] 2,000 mg IV NOW STA
05/18/25 15:13
Lactate Level [Lactic Acid] Urgent
05/18/25 15:15
0.9% Sodium Chloride 1000 ml [Nss] 1,000 ml IV 250 mls/hr
05/18/25 15:24
Sterile Water [Sterile Water For Injection] 10 ml .ROUTE .[facility]
05/18/25 15:29
Blood Culture Urgent
LISA Source: Blood/Venous
Specimen Description:
05/18/25 15:32
Blood Culture Urgent
LISA Source: Blood/Venous
Specimen Description:
Blood Culture Urgent
LISA Source: Blood/Venous
Specimen Description:
05/18/25 15:33
Vancomycin [Vancocin] 2,000 mg 0.9% Sodium Chloride 500 ml [Nss] 500 ml IV NOW
05/18/25 15:45
Blood Culture Q20M
LISA Source: Blood/Venous
Specimen Description:
Comment: Urgent from separate sites. If patient screens positive for possible sepsis
05/18/25 15:56
COVID-19 Antigen Urgent
Source: Nasal Swab
05/18/25 15:57
Influenza A+B Rapid Molecular Urgent
LISA Source: Nasal Swab
Specimen Description:
05/18/25 16:05
Blood Culture Q20M
LISA Source: Blood/Venous
Specimen Description:
Comment: Urgent from separate sites. If patient screens positive for possible sepsis
Abnormal Lab Results
05/18/25 05/18/25 05/18/25
13:33 13:39 14:19
WBC 27.9 H 10^3/uL
(4.8-10.8)
RBC 4.67 L 10^6/uL
(4.70-6.10)
MCV 95.1 H fL
(80.0-94.0)
MCHC 32.4 L g/dL
(33.0-37.0)
MPV 10.8 H fL
(7.4-10.4)
Abs Immat Gran (auto) 0.5 H 10^3/uL
(0-0.05)
Absolute Neuts (auto) 26.1 H 10^3/uL
(1.4-6.5)
Absolute Lymphs (auto) 0.3 L 10^3/uL
(1.2-3.4)
Absolute Monos (auto) 1.0 H 10^3/uL
(0.1-0.6)
Immature Gran % 1.6 H %
(0-0.5)
Neutrophils % 93.5 H %
(42.2-75.2)
Lymphocytes % 1.0 L %
(20.5-51.1)
Chloride 111 H mmol/L
(98-107)
Carbon Dioxide 10 L* mmol/L
(22-30)
BUN 68 H mg/dl
(9-20)
Creatinine 3.9 H mg/dL
(0.7-1.3)
Glucose 104 H mg/dl
(70-99)
Lactic Acid
Calcium 7.7 L mg/dl
(8.4-10.2)
Magnesium 2.5 H mg/dl
(1.6-2.3)
AST 340 H U/L
(17-59)
ALT 251 H U/L
(0-50)
Alkaline Phosphatase 266 H U/L
(38-126)
Total Creatine Kinase 3915 H U/L
(55-170)
CK-MB (CK-2) 68.5 H ng/ml
(0.0-3.4)
Total Protein 5.6 L g/dl
(6.3-8.2)
Ur Occult Blood Reflex 2+ A
(Negative)
Urine Bilirubin 1+ A
(Negative)
Urine RBC 16-20 A /HPF
(0-2)
Urine Bacteria (Reflex) Few A
(Negative)
Urine Albumin (Reflex) 2+ A
(Neg - Trace)
Ur Tricyclics Screen Positive H
(Negative)
05/18/25
15:13
WBC
RBC
MCV
MCHC
MPV
Abs Immat Gran (auto)
Absolute Neuts (auto)
Absolute Lymphs (auto)
Absolute Monos (auto)
Immature Gran %
Neutrophils %
Lymphocytes %
Chloride
Carbon Dioxide
BUN
Creatinine
Glucose
Lactic Acid 4.7 H* mmol/L
(0.7-2.0)
Calcium
Magnesium
AST
ALT
Alkaline Phosphatase
Total Creatine Kinase
CK-MB (CK-2)
Total Protein
Ur Occult Blood Reflex
Urine Bilirubin
Urine RBC
Urine Bacteria (Reflex)
Urine Albumin (Reflex)
Ur Tricyclics Screen
05/18/25 13:33
05/18/25 14:19
Significant elevation in BUN, creatinine, LFTs, white blood count
Vital Signs
Initial and Last Documented VS:
Initial Vital Signs
Temp Pulse Resp
95.1 F L 75 22
05/18/25 13:21 05/18/25 13:21 05/18/25 13:21
Last Documented Vital Signs
Temp Pulse Resp BP Pulse Ox
96.5 F L 88 22 148/129 97
05/18/25 14:47 05/18/25 15:45 05/18/25 15:45 05/18/25 15:45 05/18/25 15:00
MDM/Problems Addressed
Differential Diagnosis Includes:
Differential diagnosis to consider but not limited to intracranial hemorrhage, occult cervical spine injury, occult intrathoracic trauma, rhabdomyolysis, occult infection, dehydration along with other etiologies considered
Chronic conditions affecting care:
Dementia, Parkinson's, advanced age
*Pulse Oximetry
Nasal Cannula flow liters per minute: 4
Patient hypoxic: yes
*EKG
Interpreted by ED Provider?: Yes (I independently viewed and interpreted twelve-lead EKG showing normal sinus rhythm, rate 80, normal axis, QRS measured prolonged at 482 msec, no ST elevations, nonspecific T wave flattening in the lateral leads, no
evidence for acute ischemia, T waves more flattened compared to prior EKG from 06/19/)
*Beater Room Helper Interpretation
Rate: normal (I independently viewed and interpreted rhythm strip showing normal sinus rhythm, no ectopy)
*Critical Care Note
Total Time (30-74mins, 75-104mins- exclusive of procedures): see notes
comment:
Critical care statement: A total of 40 minutes of critical care time was provided for this patient. This includes management of unstable vital signs, evaluation of the patient at bedside, reviewing the patient's pertinent medical records, discussion
with consultants, review of old EKGs and review of pertinent medical records. This time with separate from time utilized to perform the aforementioned documented procedures
Update Note
Update Note:
IV fluids ordered along with screening labs and trauma scans. Awaiting results for admission.
1535: Additional IV fluids ordered along with broad-spectrum antibiotics given significant elevation in white blood count, although this is likely also related to hemoconcentration given acute kidney failure and evidence for clinical dehydration.
Blood pressure improved with IV fluids.
1600: Stable vital signs. I independently viewed and interpreted CT of the chest abdomen pelvis showing no gross fracture, no large hemorrhage, possible left lower lobe pneumonia the patient has a hiatal hernia with some atelectasis also. Awaiting
formal radiology interpretation. Full patient presentation along with pending results reviewed with the hospitalist who accepts patient for admission for further care of acute lactic acidosis with severe dehydration, acute kidney injury, elevated
LFTs and altered mental status
ED Attending Note
-
Portions of this chart may have been created with voice recognition software.� Occasional wrong word or��sound alike� substitutions may have occurred due to the inherent limitations of voice recognition software.
Discharge Plan
Departure
Patient Disposition: Admit
Date of Disposition: 05/18/25
Time of Disposition: 16:01
Presentation/result/management discussed w/ accepting MD/DO: Hospitalist
Discharge Problem:
Acute renal failure, Elevated LFTs, Weakness, Acute dehydration, Acidosis, lactic, Altered mental status
Prescriptions:
No Action
venlafaxine 75 MG tablet
225 mg PO DAILY
simvastatin 20 mg Tablet
20 mg PO HS
lisinopril 10 mg Tablet
10 mg PO DAILY
tamsulosin 0.4 mg Capsule
0.4 mg PO QPM
omeprazole 20 mg Capsule,Delayed Release(Dr/Ec)
20 mg PO DAILY
quetiapine 50 mg Tablet
100 mg PO HS
acetaminophen 500 mg Tablet
1,000 mg PO BID
mirtazapine [Remeron] 15 mg Tablet
15 mg PO HS
finasteride 5 mg Tablet
5 mg PO DAILY
amlodipine 2.5 mg tablet
5 mg PO HS
lidocaine 4 % Adhesive Patch,Medicated
1 patch TOPICAL DAILY
gabapentin 300 mg capsule
300 mg PO TID
Referrals:
UNKNOWN - PT DOES,NOT KNOW [Family Provider]
Interventions
Interventions:
*Risk Screen - Suicide Last Done: 05/18/25 14:13
*General Assessment Last Done: 05/18/25 14:13
*Neglect/Abuse Screening Last Done: 05/18/25 14:13
*ED- Fall Risk Assessment Last Done: 05/18/25 14:13
*ED COVID-19 Vaccine History Last Done: 05/18/25 14:13
*ED Influenza Vaccine History Last Done: 05/18/25 14:13
ED- Neurological Assessment Last Done: 05/18/25 14:13
Discharge Date and Time
Print Language: AUSTRALIAN
[2025-05-18 14:02] LABS: Hematocrit 44.4 % (39.0-52.0); Hemoglobin 14.4 g/dL (13.0-18.0); Mean Corp Hgb Conc. 32.4 g/dL (33.0-37.0); Mean Corpuscular Volume 95.1 fL (80.0-94.0); Platelet Count 228 10^3/uL (130-400); Red Cell Dist. Width 14.1 % (11.5-14.5)
[2025-05-18 14:18] LABS: Urine Character Clear (Clear)
[2025-05-18 14:30] LABS: Urine Squamous Cell 0-2 /LPF (Few)
[2025-05-18 14:31] LABS: Urine Red Blood Cell 16-20 /HPF (0-2); Urine White Cell 0-2 /HPF (0-5)
[2025-05-18 14:39] LABS: Nucleated Red Blood Cells % 0 % (-)
[2025-05-18 14:53] LABS: ALT (SGPT) 251 U/L (0-50); AST (SGOT) 340 U/L (17-59); Albumin 3.6 g/dl (3.5-5.0); Alkaline Phosphatase 266 U/L (38-126); Blood Urea Nitrogen 68 mg/dl (9-20); Calcium 7.7 mg/dl (8.4-10.2); Carbon Dioxide 10 mmol/L (22-30); Chloride 111 mmol/L (98-107); Estimated Creatinine Clearance 14 ml/min; Glucose 104 mg/dl (70-99); Magnesium 2.5 mg/dl (1.6-2.3); Potassium 4.4 mmol/L (3.5-5.1); Sodium 137 mmol/L (135-145); Total Protein 5.6 g/dl (6.3-8.2); eGFR 14.86
[2025-05-18] MEDS: MAXIPIME 2000 MG IV (15:33)
[2025-05-18 15:47] LABS: CKMB 68.5 ng/ml (0.0-3.4)
[2025-05-18] MEDS: VANCOCIN 540 MG IV (16:31)
[2025-05-18 16:33] LABS: COVID-19 Antigen Negative (Negative)
--- NOTE | 2025-05-18 18:27 | HPS.HSE ---
Addendum entered and electronically signed by Morena Alves MD 05/18/25 19:39:
I personally performed a history and physical exam of the patient and discussed management with the resident. I reviewed the resident's note and agree with the documented findings and plan of care HPI/CC.
GENERAL: elderly male in no apparent distress
HEENT:NC/AT, mucous membranes very dry impacting ability to speak clearly
HEART: regular rate and rhythm, +S1, +S2
LUNGS : clear to auscultation bilaterally, increased RR
ABDOM: soft, tender suprapubic area, nondistended, + bowel sounds
EXT: no cyanosis, clubbing, or edema
NEUROLOGIC: grossly intact--moves all extremities
Sepsis with end organ damage (ALIREZA, lactic acidosis, leukocytosis) due to presumed pneumonia vs UTI--initial hypotension responded to IVF--ADMIT to IMU--cont IVF--follow cultures--vanco/zosyn--CT scans very limited --check ABG, recheck labs at 10
PM--trend lactates
Found on floor--? fall--head CT and cervical spine CT without fractures--PT/OT/speech
acute kidney injury--most likely prerenal with poor PO intake from being on the floor--creat 3.9 (baseline 1.0)--cont IVF--bladder scan--rule out retention--rhabdo from being on the floor may also contribute--cont IVF--renal dose meds- Avoid
nephrotoxic drugs -Maintain urine output
Anion gap metabolic acidosis--etiologies include lactic acidosis, sepsis--bicarb 10 on admission--cont LR and repeat 10 PM labs--trend AGAP
Rhabdomyolysis/hematuria--Total creatinine kinase is 3915--repeat CPK-- Hold patient's NSAIDs
Transaminitis with normal bilirubin level-- AST is 340 and ALT is 251--multifactorial--pt on statin and acetaminophen--sepsis, hypotension--cont IVF and trend
Essential hypertension- Held amlodipine and lisinopril to prevent worsening hypotension
BPH- Hold tamsulosin and finasteride until patient is stabilized
Hyperlipidemia- Hold simvastatin due to rhabdomyolysis
Dementia-- Hold quetiapine due to patient's altered mental status state
Depression- Hold venlafaxine due to acute kidney injury
DVT prophylaxis is heparin
code status--Full code
Original Note:
Family Physician
-
Family Physician: NOT KNOW UNKNOWN - PT DOES
Chief Complaint
-
Acute altered mental status
History of Present Illness
79-year-old male full code with a past medical history of hypertension, hyperlipidemia, Parkinson's, dementia brought to the ER by EMS for evaluation of altered mental status. Patient lives at home alone and receives Meals on Wheels. He was last
seen on Wednesday-a wellness check had been called to check on the patient. He was found laying on the floor line covered in stool. Patient does not remember what happened before he passed out on the floor, does not recall any preceding dizziness
or lightheadedness, does not know how long he was out on the floor. It was unwitnessed. Patient states that he has not been eating or drinking normally the past few days however he denies any nausea, diarrhea, vomiting, fever, chills, burning
micturition, cough, chest pain, palpitations, weakness, numbness, slurred speech, seizures, weight loss wounds or new rashes on the skin, abdominal pain, history of using steroids, diuretic use.
Medical History
Past Medical History
Past Medical History: Reports Other (Hypertension, hyperlipidemia, Parkinson's, dementia)
Past Surgical History: Reports Other (Cholecystectomy, orthopedic surgery, tonsillectomy)
Social History
Tobacco: Non-smoker
Alcohol: None
Drug: None
Personal:
Living: Alone
Employment: Not Employed
Family History
Family History: Not pertinent
Allergies / Home Medications
Allergies reflects when Allergies were last updated in [employer].
Home Medications with original date entered in [employer]
Allergy/Medication List:
Allergies
Allergy/AdvReac Type Severity Reaction Status Date / Time
No Known Allergies Allergy Verified 12/21/24 22:59
Home Medications
venlafaxine 75 mg tablet 225 mg PO DAILY Depression 09/07/08
lisinopril 10 mg tablet 10 mg PO DAILY Blood Pressure 02/13/22
simvastatin 20 mg tablet 20 mg PO HS High Cholesterol 02/13/22
omeprazole 20 mg capsule,delayed release 20 mg PO DAILY gerd 06/13/24
quetiapine 50 mg tablet 100 mg PO HS Depression 06/13/24
tamsulosin 0.4 mg capsule 0.4 mg PO QPM BPH 06/13/24
acetaminophen 500 mg tablet 1,000 mg PO BID mild pain 12/21/24
amlodipine 2.5 mg tablet 5 mg PO HS Blood Pressure 12/21/24
finasteride 5 mg tablet 5 mg PO DAILY prostate 12/21/24
mirtazapine 15 mg tablet (Remeron) 15 mg PO HS Sleep 12/21/24
gabapentin 300 mg capsule 300 mg PO TID Nerve Pain 05/18/25
lidocaine 4 % topical patch 1 patch topical DAILY left foot 05/18/25
Review of Systems
-
History Source: Patient
A 12 point ROS was completed and negative except as noted: Yes
Constitutional: Reports See HPI
EENT: Reports See HPI
Respiratory: Reports See HPI
Cardiac: Reports See HPI
Abdomen/GI: Reports See HPI
: Reports See HPI
Musculoskeletal: Reports See HPI
Skin: Reports See HPI
Neurological: Reports See HPI
Endocrine: Reports See HPI
Hematologic/Lymphatic: Reports See HPI
Psych: Reports See HPI
Physical Exam
Vital Signs
Vital Signs
Temp Pulse Resp BP Pulse Ox
96.1 F L 96 21 133/87 96
05/18/25 17:06 05/18/25 17:00 05/18/25 17:00 05/18/25 17:00 05/18/25 16:30
Physical Exam
General: Well Developed
HEENT: Other (Dry mucous membranes)
Respiratory: Clear
Cardiac: S1/S2 and Regular Rhythm
GI: Soft, Non Distended, Normal Bowel Sounds and Other (Suprapubic tenderness to palpation)
Skin: Other (Linear superficial laceration along the distal aspect of great toe with dried blood present)
Neuro: Awake and Alert; No Slurred Speech, Facial Droop or Tremors
Laboratory Results
-
05/18/25 13:33
05/18/25 14:19
Laboratory Results
Lactic Acid 4.7 mmol/L (0.7-2.0) H* 05/18/25 15:13
Total Bilirubin 1.1 mg/dl (0.2-1.3) 05/18/25 14:19
AST 340 U/L (17-59) H 05/18/25 14:19
ALT 251 U/L (0-50) H 05/18/25 14:19
Alkaline Phosphatase 266 U/L (38-126) H 05/18/25 14:19
Data Reviewed
-
CT Scan: Report Reviewed by me and Discussed with Physician
Medical Tests (Nuc Med, Echo, EKG etc): Report Reviewed by me and Discussed with Physician
Lab Data: Labs Reviewed by me and Discussed with Physician
Impression/Plan
-
Sepsis with end organ damage due to unknown source with:
- Criteria are met with a blood pressure of 89/48, WBC count of 27.9, a creatinine of 3.9 indicating kidney damage and a lactic acid of 4.7, decreased core body temperature
-Differential diagnosis is UTI, cystitis, pneumonia, soft tissue infection, abdominal infection, malignancy, stroke, hypoglycemia,, rhabdomyolysis
- Start patient on lactated ringer solution for both volume resuscitation while also helping to correct the metabolic acidosis
- Start patient on empiric Zosyn and vancomycin
- Chest x-ray ordered to look for a respiratory source of infection, urine culture ordered to look for a urinary source of infection, blood cultures already ordered in the ED
- Head CT is negative for any intracranial abnormalities
- Chest abdomen pelvis CT unremarkable
- Trend CMP, CBC, lactate
- Patient is being rewarmed
- Bladder scan as patient has tenderness to palpation of the suprapubic region on abdominal exam. Possible urinary retention due to old age and BPH which could cause retention induced sepsis.
Prerenal acute kidney injury:
- Creatinine is 3.9 on admission and looking back at patient's previous creatinine levels on previous admissions it seems that he has not had an ALIREZA
-Continue with lactated Ringer's IV fluids
- Renally dose medications once patient is stable with appropriate BP
- Avoid nephrotoxic drugs
- Trend CMP
-Maintain urine output of more than 0.5/mL/KG
Anion gap hyperchloremic metabolic acidosis
-Chloride is 111, carbon dioxide is 10, sodium is 137
-On physical exam patient is hyperventilating as a result of metabolic acidosis in an attempt to release CO2 to correct acid-base imbalance
-Differential diagnosis is methanol usage, uremia, DKA, propylene glycol, isoniazid, lactic acidosis, ethylene glycol call, salicylates
-Continue with IV fluids lactated Ringer's
-Check a VBG Q6 hourly
-Treat the underlying cause
Rhabdomyolysis/hematuria:
-Total creatinine kinase is 3915
- Differential is sepsis, prolonged immobilization, hypoperfusion, secondary to excessive acetaminophen use, electrolyte abnormalities, hypothermia, seizures
- IV fluids with lactated ringer solution, target urine output of more than 0.5/mL/KG
- Check creatinine kinase in a.m.
- Hold patient's NSAIDs
Transaminitis with normal bilirubin level:
- AST is 340 and ALT is 251
- Differential diagnosis is acetaminophen toxicity vs ischemic hepatitis
- Urine drug screen ordered
- Continue on lactated Ringer's fluids for hemodynamic support
Essential hypertension:
- Held amlodipine and lisinopril to prevent worsening hypotension
BPH:
- Hold tamsulosin and finasteride until patient is stabilized
Hyperlipidemia:
- Hold simvastatin due to rhabdomyolysis
Dementia:
- Hold quetiapine due to patient's altered mental status state
Depression:
- Hold venlafaxine due to acute kidney injury
Hold acetaminophen due to ALIREZA and transaminitis
DVT prophylaxis is heparin
Full code
[2025-05-18] MEDS: NSS IV ×2 (21:05→23:03)
--- NOTE | 2025-05-18 22:10 | PHA.VAN.IN ---
Assessment
- Assessment
Renal Function: SCR Appears Elevated from baseline
Concomitant Antimicrobials: PIPERACILLIN/TAZO
Plan
- Plan
Initial / Loading Dose: VANCOMYCIN 2000 MG IV ~ 1630
Maintenance Regimen: Dosing by random level
Monitoring: Random level scheduled on 05/19 w. am labs. Pharmacy will follow
Pharmacokinetics Vancomycin I
- -
Patient Age: 79
Patient Sex: Male
Vancomycin Day #: 1
Indication: Pulmonary/Respiratory
Requesting Provider: Dr Joselyn Ramírez ([facility] - Resident)
Height / Weight:
Height 5 ft 7 in
Actual Weight 78.7 kg
Pertinent Past Medical History: ALIREZA, lactic acidosis, leukocytosis due to presumed pneumonia
- Vital Signs / Lab Results
Temp Pulse Resp BP Pulse Ox
98.8 F 99 24 112/48 96
05/18/25 18:35 05/18/25 21:00 05/18/25 21:00 05/18/25 21:00 05/18/25 19:30
Lab Results - Hematology
05/18/25
13:33
WBC 27.9 H
Lab Results - Chemistry
05/18/25 05/18/25
13:33 14:19
BUN Cancelled 68 H
Creatinine Cancelled 3.9 H
Estimated Creat Clear Cancelled 14
Albumin Cancelled 3.6
05/18/25 05/18/25
15:13 19:27
Lactic Acid 4.7 H* 2.9 H
Lab Results - Urine
05/18/25
13:39
Urine Nitrite (Reflex) Negative
Leukocyte Esterase Rfl Negative
Urine WBC (Reflex) 0-2
Ur Squamous Epith Cells 0-2
Urine Bacteria (Reflex) Few A
Microbiology Results
05/18/25 16:06 Influenza Types A & B (ABBIE) - Final
Nasal Swab Negative for Influenza A & B, NAAT
Negative results must be combined with clinical observations
and patient history.
Nucleic Acid Amplification test (NAAT)performed on the
[employer] NOW platform.
[2025-05-18 22:28] LABS: Hematocrit 41.0 % (39.0-52.0); Hemoglobin 13.2 g/dL (13.0-18.0); Mean Corp Hgb Conc. 32.2 g/dL (33.0-37.0); Mean Corpuscular Volume 97.9 fL (80.0-94.0); Platelet Count 204 10^3/uL (130-400); Red Cell Dist. Width 14.1 % (11.5-14.5)
[2025-05-18 22:45] LABS: Troponin I 0.031 ng/ml
[2025-05-18 22:46] LABS: ALT (SGPT) 422 U/L (0-50); AST (SGOT) 550 U/L (17-59); Albumin 3.3 g/dl (3.5-5.0); Alkaline Phosphatase 252 U/L (38-126); Blood Urea Nitrogen 83 mg/dl (9-20); Calcium 7.5 mg/dl (8.4-10.2); Carbon Dioxide 9 mmol/L (22-30); Chloride 114 mmol/L (98-107); Estimated Creatinine Clearance 14 ml/min; Glucose 90 mg/dl (70-99); Potassium 4.5 mmol/L (3.5-5.1); Sodium 136 mmol/L (135-145); Total Protein 5.5 g/dl (6.3-8.2); eGFR 15.33
[2025-05-18 22:57] LABS: B.E. -13.6 mmol/L; O2 Saturation % 98.8 % (94-98); PCO2 21 mmHg (35-48); PO2 81 mmHg (83-108)
[2025-05-18 22:59] LABS: HCO3 10.6 mmol/L (21-28)
--- NOTE | 2025-05-18 23:00 | PTCARENOTE ---
Received pt. from ED. Admitted with sepsis and rhabdo. Pt. is awake. Confused to time and place. Denies pain/discomfort. Afebrile. Heart rhythm sinus. Blood pressure normotensive. Currently on room air. Lungs sound diminished. Incontinent of bowel.
Requiring straight cath for urine. Skin as documented. Discussed plan of care with patient. Vital signs stable at this time.
[2025-05-18 23:03] LABS: Nucleated Red Blood Cells % 0 % (-)
[2025-05-18] MEDS: HEPARIN 5000 UNITS SC (23:04)
[2025-05-18] MEDS: LR 1000 IV (23:05)
[2025-05-18] MEDS: ZOSYN 50 IV (23:37)
[2025-05-19] VITALS (12 sets, daily range): BP systolic 119–155; BP diastolic 44–65; PULSE 88; O2SAT 97; BMI 26.5
[2025-05-19] MEDS: SODIUM BICARBONATE 1075 MEQ IV ×2 (00:04→11:35)
[2025-05-19 04:02] LABS: Hematocrit 36.9 % (39.0-52.0); Hemoglobin 12.7 g/dL (13.0-18.0); Mean Corp Hgb Conc. 34.4 g/dL (33.0-37.0); Mean Corpuscular Volume 92.9 fL (80.0-94.0); Platelet Count 181 10^3/uL (130-400); Red Cell Dist. Width 13.9 % (11.5-14.5)
[2025-05-19 04:24] LABS: ALT (SGPT) 496 U/L (0-50); AST (SGOT) 601 U/L (17-59); Albumin 3.0 g/dl (3.5-5.0); Alkaline Phosphatase 227 U/L (38-126); Blood Urea Nitrogen 92 mg/dl (9-20); Calcium 7.2 mg/dl (8.4-10.2); Carbon Dioxide 10 mmol/L (22-30); Chloride 117 mmol/L (98-107); Estimated Creatinine Clearance 14 ml/min; Glucose 92 mg/dl (70-99); Magnesium 2.3 mg/dl (1.6-2.3); Potassium 4.3 mmol/L (3.5-5.1); Sodium 139 mmol/L (135-145); Total Protein 5.1 g/dl (6.3-8.2); eGFR 15.33
[2025-05-19 04:27] LABS: Troponin I 0.030 ng/ml
[2025-05-19 06:59] LABS: Nucleated Red Blood Cells % 0 % (-)
--- NOTE | 2025-05-19 07:46 | PHA.VAN.FU ---
Vancomycin Assessment / Plan
- Assessment
Renal Function: SCR Increasing
WBC's are: Trending Down (21.5(10.24)-17.9 (10.25))
In the past 24 hrs, patient has been: Afebrile
Concomitant Antimicrobials: piperacillin-tazobactmam
- Assessment - Therapeutic Drug Monitoring
Random Level: 20.5 approx. 11 hrs after LD
- Dosing Plan
Dosing by Level: Hold off on dosing today
- Monitoring Plan
Random Level: level ordered for 10. @0600
MRSA Screen: Ordered per protocol
- Follow Up
Pharmacy will continue to follow.
Vancomycin Follow UP
- -
Patient Age: 79
Patient Sex: Male
Vancomycin Day #: 2
Indication: Pulmonary/Respiratory
Requesting Provider: Dr Joselyn Ramírez ([facility] - Resident)
Height / Weight:
Height 5 ft 7 in
Actual Weight 76.7 kg
IBW in k.1
Adjusted BW in k.3
Pertinent Past Medical History: ALIREZA, lactic acidosis, leukocytosis due to presumed pneumonia
- Vital Signs / Lab Results
Temp Pulse Resp BP Pulse Ox
98.3 F 90 23 119/57 98
05/19/25 02:52 05/19/25 06:04 05/19/25 06:04 05/19/25 06:04 05/19/25 06:04
Lab Results - Hematology
05/18/25 05/18/25 05/19/25
13:33 22:09 03:37
WBC 27.9 H 21.5 H 17.9 H
Lab Results - Chemistry
05/18/25 05/18/25 05/18/25
13:33 14:19 22:09
BUN Cancelled 68 H 83 H
Creatinine Cancelled 3.9 H 3.8 H
Estimated Creat Clear Cancelled 14 14
Albumin Cancelled 3.6 3.3 L
05/19/25
03:37
BUN 92 H
Creatinine 3.8 H
Estimated Creat Clear 14
Albumin 3.0 L
05/18/25 05/18/25 05/18/25
15:13 19:27 22:09
Lactic Acid 4.7 H* 2.9 H 2.8 H
05/19/25
03:37
Lactic Acid 2.4 H
Lab Results - Urine
05/18/25
13:39
Urine Nitrite (Reflex) Negative
Leukocyte Esterase Rfl Negative
Ur Squamous Epith Cells 0-2
Microbiology Results
05/18/25 16:06 Influenza Types A & B (ABBIE) - Final
Nasal Swab Negative for Influenza A & B, NAAT
Negative results must be combined with clinical observations
and patient history.
Nucleic Acid Amplification test (NAAT)performed on the
[employer] NOW platform.
Therapeutic Drug Monitoring
Random Vancomycin 20.5 ug/ml 05/19/25 03:37
[2025-05-19] MEDS: NSS (PRESERVATIVE FREE) 10 ML IV (08:08)
[2025-05-19] MEDS: ZOSYN 50 IV ×3 (08:08→23:02)
[2025-05-19] MEDS: PROTONIX IV 40 MG IV (08:08)
[2025-05-19] MEDS: HEPARIN 5000 UNITS SC ×2 (08:08→20:30)
[2025-05-19 08:56] LABS: Absolute Neutrophils -Man Diff 15.9 10^3/uL (1.4-6.5)
[2025-05-19 08:57] LABS: Normal RBC Morphology Yes; Platelets Checked Yes; Total Cells Counted 100
--- NOTE | 2025-05-19 10:23 | PTOTSP ---
Speech Therapy Evaluation
Pt seen for bedside swallow assessment. Pt at an increased risk of aspiration given history of Parkinson's disease, dementia, and altered mental status. With PO intake of puree and thins, pt demo adequate oral acceptance, mastication, ap transfer,
and oral clearance. No overt s/sx of aspiration. With trials of regular and ground solids, pt reported texture was too dry. Pt complained of significant xerostomia and throat soreness.
Recommendation:
1. IDDSI 4 Puree, Thin liquids only when alert and with supervision� (pt with bilateral soft hand restraints due to history of pulling out tubing).
2. Medication as best tolerated
3. Standard aspiration precautions
4. NURSERY HELPER to follow
[2025-05-19 12:27] LABS: B.E. -11.0 mmol/L; O2 Saturation % 99.7 % (94-98); PCO2 24 mmHg (35-48); PO2 88 mmHg (83-108)
[2025-05-19 12:31] LABS: HCO3 12.9 mmol/L (21-28)
--- NOTE | 2025-05-19 15:58 | W.PN.HOSP.TC ---
Addendum entered and electronically signed by Morena Alves MD 05/19/25 18:19:
I saw and evaluated the patient independently. I reviewed and discussed the resident�s note and agree with findings and plan as documented by Dr. Warren.
GENERAL: elderly, frail male in no apparent distress
HEENT:NC/AT, mucous membranes very dry impacting ability to speak clearly--marginally improved today
HEART: regular rate and rhythm, +S1, +S2
LUNGS : clear to auscultation bilaterally, increased RR
ABDOM: soft, tender suprapubic area again today, nondistended, + bowel sounds
EXT: no cyanosis, clubbing, or edema
NEUROLOGIC: grossly intact--moves all extremities
Sepsis with end organ damage (ALIREZA, lactic acidosis, leukocytosis) due to presumed pneumonia vs UTI--initial hypotension responded to IVF-cont IVF--follow cultures--vanco/zosyn--CT scans very limited -- still remains acidotic, IVF change to 1/2 NSS
with 2 amps Bicarb--follow BMP and lactic acid--ABG improving
Found on floor--? fall--head CT and cervical spine CT without fractures--PT/OT/speech
acute kidney injury--most likely prerenal with poor PO intake from being on the floor--creat 3.9 (baseline 1.0), no change--cont IVF--bladder scan---rhabdo from being on the floor may also contribute--renal dose meds- Avoid nephrotoxic drugs
-Maintain urine output
Anion gap metabolic acidosis--etiologies include lactic acidosis, sepsis--bicarb 10 on admission, no improvement--adjust IVF with bicarb
Rhabdomyolysis/hematuria--Total creatinine kinase is 3915, increasing--follow CPK-- Hold patient's NSAIDs
Transaminitis with normal bilirubin level-- AST is now 550 and ALT is now 601--multifactorial--pt on statin and acetaminophen--sepsis, hypotension--cont IVF and trend--feel due to shock liver
Essential hypertension- Held amlodipine and lisinopril to prevent worsening hypotension
BPH- restart tamsulosin and finasteride
Hyperlipidemia- Hold simvastatin due to rhabdomyolysis
Dementia-- Hold quetiapine due to patient's altered mental status state
Depression- Hold venlafaxine due to acute kidney injury
DVT prophylaxis is heparin
code status--Full code
Original Note:
Today's Communication/Plan
-
Trend labs, ABG, lactic acid, continue IV with 150 mEq of bicarb
Assessment / Plan
Assessment / Plan
Sepsis with end organ damage due to possibly pneumonia:
- Criteria are met because on admission blood pressure of 89/48, WBC count of 27.9, a creatinine of 3.9 indicating kidney damage and a lactic acid of 4.7, decreased core body temperature
-Today on 05/19/2025 his WBC is now 17.9 trending down, still in metabolic acidosis, markedly elevated LFTs compared to previous, lactic acid at 2.4 and trending down from 2 point on admission, creatinine still at 3.8
- Changed patient's IV drip from half-normal saline to sterile water with 3 ampoules of bicarbonate so 150 mEq as he is still in metabolic acidosis, this will provide a hypotonic solution that is alkaline to help correct metabolic acidosis by
providing extra bicarb.
- Continue patient on empiric Zosyn and vancomycin
- Chest x-ray shows possible left basilar airspace opacities which may either be atelectasis or pneumonia
- blood cultures are negative, urine cultures pending
- Head CT is negative for any intracranial abnormalities
- Chest abdomen pelvis CT unremarkable
- Trend CMP, CBC, lactate, anion gap
- Patient is being rewarmed
- Started patient on home tamsulosin and finasteride, holding all other home meds
- Ordered PT/OT
- Upgrade patient to IDDSI 4 pur�ed diet as per speech's recommendation
- Weaning patient off of oxygen
Prerenal acute kidney injury:
- Creatinine is 3.9 on admission and looking back at patient's previous creatinine levels on previous admissions it seems that he has not had an ALIREZA
-Continue with lactated Ringer's IV fluids
- Renally dose medications once patient is stable with appropriate BP
- Avoid nephrotoxic drugs
- Trend CMP
-Maintain urine output of more than 0.5/mL/KG
Anion gap hyperchloremic metabolic acidosis
-Chloride is 117, carbon dioxide is 10, sodium is 139
-On physical exam patient is hyperventilating as a result of metabolic acidosis in an attempt to release CO2 to correct acid-base imbalance
-Differential diagnosis is methanol usage, uremia, DKA, propylene glycol, isoniazid, lactic acidosis, ethylene glycol call, salicylates
-Change fluid to sterile saline with 150 mill equivalents of bicarb to help offset metabolic acidosis
-Check a VBG Q6 hourly
-Treat the underlying cause
Rhabdomyolysis/hematuria:
-Total creatinine kinase is 4072 trending up from yesterday
- Differential is sepsis, prolonged immobilization, hypoperfusion, secondary to excessive acetaminophen use, electrolyte abnormalities, hypothermia, seizures
- IV fluids with lactated ringer solution, target urine output of more than 0.5/mL/KG
- Check creatinine kinase daily
- Hold patient's NSAIDs
Transaminitis with normal bilirubin level:
- AST is 601 and ALT is 496
-Most likely due to ischemic hepatitis
- Urine drug screen negative for acetaminophen toxicity
-Ordered ultrasound of the right upper quadrant to evaluate the liver for causes such as
-Continue on sterile water with 150 mEq of bicarb
Essential hypertension:
- Held amlodipine and lisinopril to prevent worsening hypotension
BPH:
- Restarted tamsulosin and finasteride
Hyperlipidemia:
- Hold simvastatin due to rhabdomyolysis
Dementia:
- Hold quetiapine due to patient's altered mental status state
Depression:
- Hold venlafaxine due to acute kidney injury
Hold acetaminophen due to ALIREZA and transaminitis
DVT prophylaxis is heparin
Full code
Anticipated Discharge: 24 - 48 hours
Subjective/Interval History
-
Date of Service: May 19, 2025
No acute overnight events.
Patient is much more awake, alert, on however he still having difficulty speaking due to his dry mucous membranes
Objective Data
-
Labs:
Laboratory Results
05/19/25 05/19/25 05/19/25
03:37 11:56 15:00
WBC 17.9 H
Hgb 12.7 L
Hct 36.9 L
Plt Count 181
HCO3 12.9 L*
Sodium 139 Pending
Potassium 4.3 Pending
Chloride 117 H Pending
Carbon Dioxide 10 L* Pending
BUN 92 H Pending
Creatinine 3.8 H Pending
Glucose 92 Pending
Calcium 7.2 L Pending
Total Bilirubin 1.0
AST 601 H*
ALT 496 H
Alkaline Phosphatase 227 H
Vital Signs:
Vital Signs
Temp Pulse Resp BP Pulse Ox
98.4 F 87 20 122/54 97
05/19/25 15:00 05/19/25 12:00 05/19/25 12:00 05/19/25 08:00 05/19/25 12:00
I&O
05/18/25 05/19/25 05/20/25
06:59 06:59 06:59
Intake Total 800 / 800
Output Total 1000 / 1000 75 / 75
Balance -200 / -200 -75 / -75
Review of Systems
-
History Source: Patient
All other systems: Reviewed and negative
Constitutional: Denies Fever, Weight Gain, Weight Loss, Fatigue or Chills
EENT: Reports Other (Dry oral mucous membranes)
Respiratory: Denies Cough, Trouble Breathing or Wheezing
Cardiac: Denies Chest Pain, Diaphoresis, Palpitations or Syncope
Abdomen/GI: Denies Abdominal Pain, Nausea, Vomiting, Diarrhea, Constipated or Bloody Stools
Genitourinary: Denies Dysuria, Flank Pain, Incontinence, Difficulty Voiding, Urgency or Bleeding
Musculoskeletal: Denies Joint Pain
Neuro: Reports Weakness and Lightheadedness; Denies Dizzy or Headache
Physical Exam
-
General: Well Developed
HEENT: Other (Dry oral mucous membrane)
Respiratory: Clear to Auscultation
Cardiac: Regular Rhythm and S1/S2
GI: Soft, Nondistended, Normal Bowel Sounds and Other (Suprapubic tenderness)
Genito-urinary: Negative No Costovertebral Tender
Musculoskeletal: No Clubbing, No Cyanosis and No Edema
Skin: Warm, Dry and Other (Healed laceration of great toe on left foot)
Neuro: AO x 3
Data Reviewed
-
Labs: Labs Reviewed by me and Discussed with Physician
[2025-05-19] MEDS: PROSCAR 5 MG PO (16:44)
[2025-05-19] MEDS: SODIUM BICARBONATE 1150 MEQ IV (17:56)
[2025-05-19] MEDS: FLOMAX 0.4 MG PO (17:57)
[2025-05-19 22:53] LABS: Hematocrit 43.4 % (39.0-52.0); Hemoglobin 13.7 g/dL (13.0-18.0); Mean Corp Hgb Conc. 31.6 g/dL (33.0-37.0); Mean Corpuscular Volume 98.6 fL (80.0-94.0); Platelet Count 183 10^3/uL (130-400); Red Cell Dist. Width 14.4 % (11.5-14.5)
[2025-05-19 23:12] LABS: Nucleated Red Blood Cells % 0 % (-)
--- NOTE | 2025-05-19 23:31 | PTCARENOTE ---
assumed care of patient. pt is AAOx2-3, pt was able to state he is in [facility] and that it is 2024, but pt forgetful. bed alarm on. pt with constant loose watery stools, incontinent of bowel but using urinal to urinate, c-diff specimen
sent. attempted to place rectal trumpet, which was working for a little but and then patient pulled it out. IV fluids infusing. labs drawn per order. bed alarm on. care ongoing.
[2025-05-20] VITALS (12 sets, daily range): BP systolic 118–164; BP diastolic 47–116; BMI 26.3; BMI 26.1
--- NOTE | 2025-05-20 02:55 | PTCARENOTE ---
pt answers orientation questions correctly but is still very confused. pt pulling out IV's, pulling off oxygen and heart monitor. notified covering [employer]- order for b/l soft limb restraints and placed on patient. new IV placed.
[2025-05-20] MEDS: SODIUM BICARBONATE 1150 MEQ IV ×2 (05:21→16:57)
[2025-05-20 05:43] LABS: Albumin 3.0 g/dl (3.5-5.0); Alkaline Phosphatase 206 U/L (38-126); Blood Urea Nitrogen 105 mg/dl (9-20); Calcium 7.7 mg/dl (8.4-10.2); Carbon Dioxide 20 mmol/L (22-30); Chloride 112 mmol/L (98-107); Estimated Creatinine Clearance 22 ml/min; Glucose 99 mg/dl (70-99); Potassium 3.6 mmol/L (3.5-5.1); Sodium 142 mmol/L (135-145); Total Protein 5.1 g/dl (6.3-8.2); eGFR 25.34
[2025-05-20 05:53] LABS: Troponin I 0.023 ng/ml
[2025-05-20 06:10] LABS: ALT (SGPT) 1446 U/L (0-50); AST (SGOT) 1245 U/L (17-59)
--- NOTE | 2025-05-20 06:14 | PTCARENOTE ---
critical BUN this AM, notified covering [employer], no new orders.
[2025-05-20] MEDS: HEPARIN 5000 UNITS SC ×2 (08:09→19:50)
[2025-05-20] MEDS: PROTONIX IV 40 MG IV (08:09)
[2025-05-20] MEDS: PROSCAR 5 MG PO (08:09)
[2025-05-20] MEDS: NSS (PRESERVATIVE FREE) 10 ML IV (08:09)
[2025-05-20] MEDS: ZOSYN 50 IV ×2 (08:09→16:57)
[2025-05-20 08:52] LABS: Hematocrit 30.9 % (39.0-52.0); Hemoglobin 10.0 g/dL (13.0-18.0); Mean Corp Hgb Conc. 32.4 g/dL (33.0-37.0); Mean Corpuscular Volume 96.3 fL (80.0-94.0); Platelet Count 149 10^3/uL (130-400); Red Cell Dist. Width 14.4 % (11.5-14.5)
--- NOTE | 2025-05-20 09:02 | PHA.VAN.FU ---
Vancomycin Assessment / Plan
- Assessment
Renal Function: SCR Decreasing
WBC's are: Trending Down
In the past 24 hrs, patient has been: Afebrile
Concomitant Antimicrobials: Piperacillin/Tazobactam
- Assessment - Therapeutic Drug Monitoring
Random Level: on 05/20 at 05:05 was 14.4
- Dosing Plan
Dosing by Level: Re-dose today (500mg)
- Monitoring Plan
Random Level: 05/21 with morning labs
- Follow Up
Pharmacy will continue to follow.
Vancomycin Follow UP
- -
Patient Age: 79
Patient Sex: Male
Vancomycin Day #: 3
Indication: Pulmonary/Respiratory
Requesting Provider: Dr Joselyn Ramírez ([facility] - Resident)
Height / Weight:
Height 5 ft 7 in
Actual Weight 76 kg
IBW in k.1
Adjusted BW in k.3
Pertinent Past Medical History: ALIREZA, lactic acidosis, leukocytosis due to presumed pneumonia
- Vital Signs / Lab Results
Temp Pulse Resp BP Pulse Ox
98.0 F 99 17 136/47 97
05/20/25 07:43 05/20/25 06:00 05/20/25 06:00 05/20/25 06:00 05/20/25 02:00
Lab Results - Hematology
05/18/25 05/18/25 05/19/25
13:33 22:09 03:37
WBC 27.9 H 21.5 H 17.9 H
Band Neutrophils 7 H
05/19/25 05/20/25
22:43 08:32
WBC 21.8 H 14.8 H
Band Neutrophils
Lab Results - Chemistry
05/18/25 05/18/25 05/18/25
13:33 14:19 22:09
BUN Cancelled 68 H 83 H
Creatinine Cancelled 3.9 H 3.8 H
Estimated Creat Clear Cancelled 14 14
Albumin Cancelled 3.6 3.3 L
05/19/25 05/19/25 05/20/25
03:37 15:00 05:05
BUN 92 H Cancelled 105 H*
Creatinine 3.8 H Cancelled 2.5 H
Estimated Creat Clear 14 Cancelled 22
Albumin 3.0 L 3.0 L
05/18/25 05/18/25 05/18/25
15:13 19:27 22:09
Lactic Acid 4.7 H* 2.9 H 2.8 H
05/19/25 05/19/25 05/19/25
03:37 09:50 15:00
Lactic Acid 2.4 H Cancelled Cancelled
05/19/25 05/19/25 05/20/25
15:29 22:43 05:05
Lactic Acid Cancelled 2.2 H 1.8
Microbiology Results
05/19/25 20:34 C. difficile GDH Antigen & Toxins - Final
Feces/Stool Negative for toxigenic C.difficile
05/18/25 15:32 Blood Culture - Preliminary
Blood/Venous No Growth in 24 hours- Final report to follow
05/18/25 15:32 Blood Culture - Preliminary
Blood/Venous No Growth in 24 hours- Final report to follow
05/18/25 16:06 Influenza Types A & B (ABBIE) - Final
Nasal Swab Negative for Influenza A & B, NAAT
Negative results must be combined with clinical observations
and patient history.
Nucleic Acid Amplification test (NAAT)performed on the
[employer] platform.
Therapeutic Drug Monitoring
Random Vancomycin 14.4 ug/ml 05/20/25 05:05
[2025-05-20 09:27] LABS: Nucleated Red Blood Cells % 0 % (-)
[2025-05-20 10:02] LABS: ALT (SGPT) 1134 U/L (0-50); AST (SGOT) 880 U/L (17-59); Albumin 2.5 g/dl (3.5-5.0); Alkaline Phosphatase 145 U/L (38-126); Blood Urea Nitrogen 84 mg/dl (9-20); Calcium 5.9 mg/dl (8.4-10.2); Carbon Dioxide 20 mmol/L (22-30); Chloride 90 mmol/L (98-107); Estimated Creatinine Clearance 31 ml/min; Glucose 329 mg/dl (70-99); Potassium 3.2 mmol/L (3.5-5.1); Sodium 139 mmol/L (135-145); Total Protein 4.7 g/dl (6.3-8.2); eGFR 37.58
[2025-05-20] MEDS: VANCOCIN HCL 500 MG 100 IV (10:28)
--- NOTE | 2025-05-20 11:31 | RESPNOTE ---
Patient placed on room air @ 1112. Spo2 92-95%. Pulse ox with poor pleth; pt's hands cold, wrapped in warm blankets.
[2025-05-20 14:06] LABS: Hematocrit 40.1 % (39.0-52.0); Hemoglobin 13.7 g/dL (13.0-18.0); Mean Corp Hgb Conc. 34.2 g/dL (33.0-37.0); Mean Corpuscular Volume 93.5 fL (80.0-94.0); Platelet Count 199 10^3/uL (130-400); Red Cell Dist. Width 14.3 % (11.5-14.5)
[2025-05-20 14:31] LABS: Nucleated Red Blood Cells % 0 % (-)
--- NOTE | 2025-05-20 15:19 | W.PN.HOSP.TC ---
Addendum entered and electronically signed by Morena Alves MD 05/20/25 18:33:
I saw and evaluated the patient independently. I reviewed and discussed the resident�s note and agree with findings and plan as documented by Dr. Warren.
GENERAL: elderly, frail male in no apparent distress improving--looks much better
HEENT:NC/AT --O2 NC
HEART: regular rate and rhythm, +S1, +S2
LUNGS : clear to auscultation bilaterally, increased RR
ABDOM: soft, nontender, nondistended, + bowel sounds
EXT: no cyanosis, clubbing, or edema
NEUROLOGIC: grossly intact--moves all extremities
Sepsis with end organ damage (ALIREZA, lactic acidosis, leukocytosis) due to presumed pneumonia vs UTI--initial hypotension responded to IVF--cont IVF--all cultures negative--vanco/zosyn--CT scans very limited -- still remains acidotic but improving,
IVF 1/2 NSS with 2 amps Bicarb--follow BMP and lactic acid
Found on floor--? fall--head CT and cervical spine CT without fractures--PT/OT/speech
acute kidney injury--most likely prerenal with poor PO intake from being on the floor--creat 3.9 (baseline 1.0), improved to 1.8--cont IVF---rhabdo from being on the floor may also contribute--renal dose meds- Avoid nephrotoxic drugs -Maintain urine
output
Anion gap metabolic acidosis--etiologies include lactic acidosis, sepsis--bicarb 10 on admission, now 20-- IVF with bicarb
Rhabdomyolysis/hematuria--Total creatinine kinase is 3915 on admission, improving--follow CPK-- Hold patient's NSAIDs
Transaminitis with normal bilirubin level-- AST peaked at 1245 and ALT peaked at 1446--multifactorial--pt on statin and acetaminophen--sepsis, hypotension--cont IVF and trend--feel due to shock liver most likely--hold meds until LFTs imptove
Essential hypertension- Held amlodipine and lisinopril to prevent worsening hypotension
BPH- restart tamsulosin and finasteride
Hyperlipidemia- Hold simvastatin due to rhabdomyolysis
Dementia-- restart quetiapine
Depression- restart venlafaxine -- of note pt is refusing meds, saying he wants to and go be with his --may need psych consult in AM....
DVT prophylaxis is heparin
code status--Full code
Original Note:
Today's Communication/Plan
-
Trend labs, , lactic acid, continue IV with 150 mEq of bicarb
Assessment / Plan
Assessment / Plan
Sepsis with end organ damage due to possibly pneumonia:
- Criteria are met because on admission blood pressure of 89/48, WBC count of 27.9, a creatinine of 3.9 indicating kidney damage and a lactic acid of 4.7, decreased core body temperature
-Today on 05/19/2025 his WBC is now 17.9 trending down, still in metabolic acidosis, markedly elevated LFTs compared to previous, lactic acid at 2.4 and trending down from 2 point on admission, creatinine still at 3.8
- Changed patient's IV drip from half-normal saline to sterile water with 3 ampoules of bicarbonate so 150 mEq as he is still in metabolic acidosis, this will provide a hypotonic solution that is alkaline to help correct metabolic acidosis by
providing extra bicarb.
- Continue patient on empiric Zosyn and vancomycin
- Chest x-ray shows possible left basilar airspace opacities which may either be atelectasis or pneumonia
- blood cultures are negative, urine cultures pending
- Head CT is negative for any intracranial abnormalities
- Chest abdomen pelvis CT unremarkable
- Trend CMP, CBC, lactate, anion gap
- Patient is being rewarmed
- Started patient on home tamsulosin and finasteride, holding all other home meds
- PT reccs skilled rehab
- Upgraded patient to IDDSI 4 pur�ed diet as per speech's recommendation
- Weaning patient off of oxygen
Prerenal acute kidney injury:
- Creatinine is 3.9 on admissionand 2.5 today.
-Continue with lactated Ringer's IV fluids
- Renally dose medications once patient is stable with appropriate BP
- Avoid nephrotoxic drugs
- Trend CMP
-Maintain urine output of more than 0.5/mL/KG
NON Anion gap hyperchloremic metabolic acidosis
-Chloride is 112, carbon dioxide is 20, sodium is 142, patient is no longer in anion gap metabolic acidosis
-Patient is no longer hyperventilating
-Differential diagnosis is methanol usage, uremia, DKA, propylene glycol, isoniazid, lactic acidosis, ethylene glycol call, salicylates
-Change fluid to sterile saline with 150 mill equivalents of bicarb to help offset metabolic acidosis
-Check a VBG Q6 hourly
-Treat the underlying cause
Rhabdomyolysis/hematuria:
-Total creatinine kinase is 1049 from 4072 trending down from yesterday
- Differential is sepsis, prolonged immobilization, hypoperfusion, secondary to excessive acetaminophen use, electrolyte abnormalities, hypothermia, seizures
- IV fluids with lactated ringer solution, target urine output of more than 0.5/mL/KG
- Check creatinine kinase daily
- Hold patient's NSAIDs
Transaminitis with normal bilirubin level due to ischemic hepatitis:
- AST is 1245 and ALT is 1446, both numbers more than double of yesterday, this is early transient phase of ischemic hepatitis, will observe if numbers plateau and/ or trend down
- Urine drug screen negative for acetaminophen toxicity
-Ordered ultrasound of the right upper quadrant to evaluate the liver, which was negative for causes like cholestasis, hepatitis, and fatty liver.
-Continue on sterile water with 150 mEq of bicarb
Essential hypertension:
- restarted amlodipine and lisinopril now that his blood pressure is stabilized
BPH:
- Restarted tamsulosin and finasteride
Hyperlipidemia:
- Hold simvastatin due to rhabdomyolysis
Dementia:
- Hold quetiapine due to patient's altered mental status state
Depression:
- Hold venlafaxine due to acute kidney injury
Hold acetaminophen due to ALIREZA and transaminitis
DVT prophylaxis is heparin
Full code
Anticipated Discharge: Within 24 hours
Subjective/Interval History
-
Date of Service: May 20, 2025
No acute overnight events.
Patient is much more awake, alert, and is able to speak
Objective Data
-
Labs:
Laboratory Results
05/20/25 05/20/25 05/20/25
05:05 08:32 13:31
WBC 14.8 H 20.1 H
Hgb 10.0 L D 13.7 D
Hct 30.9 L 40.1
Plt Count 149 199 D
Sodium 142 139 Cancelled
Potassium 3.6 3.2 L Cancelled
Chloride 112 H 90 L Cancelled
Carbon Dioxide 20 L 20 L Cancelled
BUN 105 H* 84 H Cancelled
Creatinine 2.5 H 1.8 H Cancelled
Glucose 99 329 H Cancelled
Calcium 7.7 L 5.9 L* D Cancelled
Total Bilirubin 1.2 0.8 Cancelled
AST 1245 H* 880 H* Cancelled
ALT 1446 H* 1134 H* Cancelled
Alkaline Phosphatase 206 H 145 H Cancelled
05/20/25
14:13
WBC
Hgb
Hct
Plt Count
Sodium Pending
Potassium Pending
Chloride Pending
Carbon Dioxide Pending
BUN Pending
Creatinine Pending
Glucose Pending
Calcium Pending
Total Bilirubin Pending
AST Pending
ALT Pending
Alkaline Phosphatase Pending
Vital Signs:
Vital Signs
Temp Pulse Resp BP Pulse Ox
97.9 F 97 16 129/70 98
05/20/25 11:00 05/20/25 10:00 05/20/25 10:00 05/20/25 08:00 05/20/25 10:57
I&O
05/19/25 05/20/25 05/21/25
06:59 06:59 06:59
Intake Total 800 / 800 50 / 50
Output Total 1000 / 1000 475 / 475 200 / 200
Balance -200 / -200 -425 / -425 -200 / -200
Review of Systems
-
History Source: Patient
All other systems: Reviewed and negative
Constitutional: Denies Fever, Weight Gain, Weight Loss, Fatigue or Chills
EENT: Reports Other (Dry oral mucous membranes)
Respiratory: Denies Cough, Trouble Breathing or Wheezing
Cardiac: Denies Chest Pain, Diaphoresis, Palpitations or Syncope
Abdomen/GI: Denies Abdominal Pain, Nausea, Vomiting, Diarrhea, Constipated or Bloody Stools
Genitourinary: Denies Dysuria, Flank Pain, Incontinence, Difficulty Voiding, Urgency or Bleeding
Musculoskeletal: Denies Joint Pain
Neuro: Reports Weakness and Lightheadedness; Denies Dizzy or Headache
Physical Exam
-
General: Well Developed
HEENT: Other (Dry oral mucous membrane)
Respiratory: Clear to Auscultation
Cardiac: Regular Rhythm and S1/S2
GI: Soft, Nondistended, Normal Bowel Sounds and Other (Suprapubic tenderness)
Genito-urinary: Negative No Costovertebral Tender
Musculoskeletal: No Clubbing, No Cyanosis and No Edema
Skin: Warm, Dry and Other (Healed laceration of great toe on left foot)
Neuro: AO x 3
Data Reviewed
-
Labs: Labs Reviewed by me and Discussed with Physician
[2025-05-20] MEDS: FLOMAX 0.4 MG PO (16:59)
[2025-05-20] MEDS: NORVASC 5 MG PO (21:14)
[2025-05-20] MEDS: SEROQUEL 100 MG PO (21:14)
[2025-05-20] MEDS: REMERON 15 MG PO (21:14)
[2025-05-20 22:43] LABS: Glucose - Point of Care 123 mg/dl (70-99)
[2025-05-20] MEDS: LOPRESSOR 5 MG IV (22:55)
--- NOTE | 2025-05-20 23:13 | W.PN.UPDATE ---
Update Note
Progress Note Update
Patient continue with a-fib hr 130s to 140s IV Lopressor 5mg ordered, hr still in 140s. Cardizem 5mg IV bolus/ drip ordered�
[2025-05-20 23:16] LABS: Hematocrit 38.5 % (39.0-52.0); Hemoglobin 13.7 g/dL (13.0-18.0); Mean Corp Hgb Conc. 35.6 g/dL (33.0-37.0); Mean Corpuscular Volume 87.1 fL (80.0-94.0); Platelet Count 174 10^3/uL (130-400); Red Cell Dist. Width 13.9 % (11.5-14.5)
[2025-05-20 23:25] LABS: INR 1.40; PT 17.4 Sec (11.4-14.6)
[2025-05-20 23:26] LABS: APTT 34.4 Sec (23.4-35.0)
[2025-05-20 23:30] LABS: AST (SGOT) 651 U/L (17-59); Albumin 2.9 g/dl (3.5-5.0); Alkaline Phosphatase 202 U/L (38-126); Blood Urea Nitrogen 77 mg/dl (9-20); Calcium 7.7 mg/dl (8.4-10.2); Carbon Dioxide 27 mmol/L (22-30); Chloride 108 mmol/L (98-107); Estimated Creatinine Clearance 42 ml/min; Glucose 123 mg/dl (70-99); Magnesium 2.8 mg/dl (1.6-2.3); Potassium 3.3 mmol/L (3.5-5.1); Sodium 141 mmol/L (135-145); Total Protein 5.0 g/dl (6.3-8.2); eGFR 55.53
[2025-05-20 23:43] LABS: ALT (SGPT) 1352 U/L (0-50)
[2025-05-20 23:45] LABS: Troponin I 0.017 ng/ml
[2025-05-20 23:49] LABS: B.E. 5.9 mmol/L; HCO3 27.8 mmol/L (21-28); O2 Saturation % 100.0 % (94-98); PCO2 31 mmHg (35-48); PO2 93 mmHg (83-108)
--- NOTE | 2025-05-20 23:51 | RR ---
A Rapid Response was called on this patient, please see Rapid Response form.
Rapid response called for HR 150-160s, change in mental status, verbally unresponsive. Patient was a transfer from IMU at change of shift. RN received report from Deangelo WALLS. Patient was AAx3 with garbled speech. It was noted that this was the
patient's baseline. Patient was started on tele and was found to be in SR in the 90s.
At 2237, patient was ST 140s an. RN went to go check on patient and he was asleep. Tried verbally arousing patient and was unable to. RN sternal rubbed patient who then was responsive but would quickly become lethargic again. HR continued to
increase to 150s. Rapid response was called.
During rapid, RN admin 5mg/5mL IV Lopressor given to patient in RAC IV. Patient was also found to be in 70-80% on room air and required nasal cannula at 10 L. Portable CXR done at bedside. Labs drawn and new IV in R foot placed.
Report given to Nayana WALLS in IMU. When patient was transferred, HR was in 110-115s and currently on 8 L O2 via nasal cannula.
--- NOTE | 2025-05-20 23:55 | W.PN.UPDATE ---
Update Note
Progress Note Update
Rapid response called at 2245 due to patient with HR 180s atrial fibrillation and decreased responsiveness. Lopressor 5 mg IV x1. HR down to 120-140s afib but also up to 10 L NC. Will transfer to IMU for closer monitoring. K+ and CA++ repletion
added. PCXR unchanged from previous.
[2025-05-21] VITALS (30 sets, daily range): BP systolic 75–126; BP diastolic 47–94; BMI 26.6
[2025-05-21] MEDS: KCL 270 MEQ IV (00:14)
[2025-05-21] MEDS: CALCIUM GLUCONATE 100 IV (00:18)
[2025-05-21] MEDS: ZOSYN IV (00:46)
[2025-05-21] MEDS: ZOSYN 50 IV ×4 (00:54→18:06)
--- NOTE | 2025-05-21 01:00 | PTCARENOTE ---
Pt arrived to IMU post rapid response on 4th floor. Pt arrived to unit in rapid afib, HR 150-160's. Pt initially appeared calm but when staff transferred pt into unit bed he became more aggressive/combative/uncooperative. CHIEF CONTRACT OFFICER Abdelwahab at bedside,
order received for b/l wrist restraints/4 side rails. Complete CHG bath provided. Pt had moderate amount liquid bm upon arrival to unit, incontinence care provided and rectal trumpet placed. Condom cath #25 place. Pt appears anxious/confused,
support provided; pt slightly less uncooperative. Pt's speech is slow and garbled, per departing unit RN this is not new. Lung sounds are decreased throughout w fine crackles in b/l base. RT at bedside and obtained ABG. Received pt on 8LO2 nasal
cannula, weaning as tolerated per pox. Telemetry rhythm reveals Afib, HR 150-160's, trace edema noted in b/l LE, palpable peripheral pulses present. CHIEF CONTRACT OFFICER placing order for additional 2.5 mg IV Lopressor. HyperBS, abdomen round soft. Skin as
documented. R FA int and R foot int's flushed and patent. IVF w bicarb per MD order. CHIEF CONTRACT OFFICER reviewed rapid response lab work, orders received for Calcium rider and KCL rider. Safe environment maintained, call dill within reach. Will monitor closely.
[2025-05-21] MEDS: LOPRESSOR 2.5 MG IV ×2 (01:14→01:41)
[2025-05-21] MEDS: FLUSH (NSS) 2 FLUSH IV (01:15)
[2025-05-21] MEDS: CARDIZEM 5 MG IV (02:28)
[2025-05-21] MEDS: CARDIZEM 125 IV ×3 (02:31→20:51)
[2025-05-21 06:07] LABS: Hematocrit 39.0 % (39.0-52.0); Hemoglobin 12.9 g/dL (13.0-18.0); Mean Corp Hgb Conc. 33.1 g/dL (33.0-37.0); Mean Corpuscular Volume 95.1 fL (80.0-94.0); Platelet Count 179 10^3/uL (130-400); Red Cell Dist. Width 14.3 % (11.5-14.5)
[2025-05-21] MEDS: SODIUM BICARBONATE 1150 MEQ IV (06:14)
[2025-05-21 06:22] LABS: AST (SGOT) 443 U/L (17-59); Albumin 2.8 g/dl (3.5-5.0); Alkaline Phosphatase 182 U/L (38-126); Blood Urea Nitrogen 70 mg/dl (9-20); Calcium 8.0 mg/dl (8.4-10.2); Carbon Dioxide 30 mmol/L (22-30); Chloride 110 mmol/L (98-107); Estimated Creatinine Clearance 46 ml/min; Glucose 107 mg/dl (70-99); Magnesium 2.8 mg/dl (1.6-2.3); Potassium 3.8 mmol/L (3.5-5.1); Sodium 143 mmol/L (135-145); Total Protein 4.8 g/dl (6.3-8.2); eGFR > 60.00
--- NOTE | 2025-05-21 06:28 | PTCARENOTE ---
Adjusted Cardizem infusion per orders. Currently on 15mg/hr Cardizem. Cardiac rhythm remains Afib, HR 100-130's. Pt very anxious/agitated, emotional support and education attempted, pt unable at this time. Will continue to monitor.
[2025-05-21 06:32] LABS: Troponin I 0.026 ng/ml
[2025-05-21 06:35] LABS: ALT (SGPT) 1105 U/L (0-50)
[2025-05-21 08:05] LABS: Nucleated Red Blood Cells % 0 % (-)
[2025-05-21] MEDS: PROTONIX IV 40 MG IV (09:00)
[2025-05-21] MEDS: LIDOCAINE 4% PATCH 1 PATCH TOPICAL (09:00)
[2025-05-21] MEDS: HEPARIN 5000 UNITS SC (09:00)
[2025-05-21] MEDS: PROSCAR PO ×2 (09:00→09:12)
[2025-05-21] MEDS: EFFEXOR XR PO ×2 (09:00→09:12)
[2025-05-21] MEDS: NSS (PRESERVATIVE FREE) 10 ML IV (09:00)
[2025-05-21] MEDS: NSS 1000 IV (10:44)
--- NOTE | 2025-05-21 11:42 | CM ---
Initial Assessment Completed By LUIS A Rueda.
Patient lives in a 1 story home alone, 1 step to enter, patient was independent, ambulates with cane, driving (?), DME: shower chair, cane, walker, grab bars. 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 [employer] called EMS who then found the patient down. Patient is a .
Patient does have family, a brother and sister in law, which is listed. Both shared that there are 2 daughters that are estranged from him (over 2 years) that he will 'not' speak to. Both said they have Medical and Financial POA, just have to get it
at home to ensure [facility] has this. Both stated that he falls a lot, found in the yard by neighbors at him, and that patient self-harm before around the holidays.
Patient was at [facility] a yea ago when he broke his hip, [employer] at one time, as well as [facility]. Both has his kimble to his house, but a neighbor does as well. Right now, patient is confused and combative.
PCP: Irwin Anthony
Pharmacy: [facility]
PLAN: SNF vs. Home
--- NOTE | 2025-05-21 12:18 | PTCARENOTE ---
pt very agitated- yelling and anxious HR 100-120 cardizem gtt continues 15mg/hr. attending notified- seeking PRN
[2025-05-21] MEDS: ATIVAN 0.25 MG IV ×2 (12:42→20:52)
[2025-05-21] MEDS: FLUSH (NSS) 0.25 FLUSH IV (12:47)
--- NOTE | 2025-05-21 14:51 | W.PN.HOSP.TC ---
Addendum entered and electronically signed by Kvng Sauceda MD 05/21/25 20:00:
Attending Addendum-
I saw and evaluated the patient. I reviewed the resident�s note and agree with findings and plan as documented in the resident�s note. Sub: Patient agitated and paranoid. 'Nobody wants to help me!' States he feels palpiattions but denies CP. Per
nursing has been yelling out and ringing his call dill incessantly. Overnight went into afib with RVR and started on dilt gtt. Full 12 point ROS reviewed and negative except as documented Exam: Vitals reviewed in chart GEN-agitated heart tachy irreg
irreg lungs fine crackles at bases abd soft NT ND pos BS LE no edema Neuro AAO x 3 agitated not following commands consistently due to refusal.
Plan:
# A fib with RVR-new
- cont Cardizem gtt
- start eliquis
- check echo
- c/s cards
#Sepsis unknown etiology
- cont zosyn for now, DC if procal negative
- check procal
- no obvious source of infection, check CXR
- wbc trending down
- repeat CBC in am
# ALIREZA
-improving
-prerenal
-cont iVF
-repeat BMP in am
# Metabolic acidosis
-resolved
-DC bicarb from IVF
# Rhabdomyolysis-resolved
# Transaminitis- shock liver repeat LFT's in am, trending down
# Essential hypertension- restart amlodipine hold lisinopril
# BPH- restart tamsulosin and finasteride
# Hyperlipidemia- Hold simvastatin due to rhabdomyolysis
# Dementia with behavioral disturbance- cont quetiapine, start ativan prn
# Depression- cont venlafaxine and remeron
-DVT prophylaxis-new Eliquis
code status--Full code will verify with medical POA
Dispo will likely need SNF on DC
Time spent coordinating care, review of plan of care with resident, personally reviewed records in EMR, med rec, consults, notes, labs, radiology, d/w nursing � 53 mins
Original Note:
Today's Communication/Plan
-
- f/u with cardiology, trend labs, observe vitals,
Assessment / Plan
Assessment / Plan
*Talked to patients sister in law today about his baseline mental status as he was agitated and yelling at staff because he feel palpitations, and she said his baseline is irritated and that he does not have dementia. gave patient .25 ativan to help
calm him down. he told nurses earlier that he wanted to , and refused meds, so consulted psych for a mental competency evaluation and evaluation of treatment of agitation*
Paroxysmal Atrial Fibrillation with RVR:
- Stat ekg confirmed diagnosis of atrial fibrillation with RVR
- Chest Xray shows Mildly increased bronchovascular markings bilaterally which may indicate interstitial edema. Small left basilar opacity which may represent a combination of pleural fluid and/or airspace consolidation.
- Previously diagnosed with Afib after gallstone pancreatitis in 2012, converted to sinus rhythm and anticoagulant status is unknown
- Consulted cardiology, they stopped fluids as they suspect an acute HF, and are ok with trying to start eliquis today at 9 pm, recc contineuing cardizem drip and lopressor 5 mg q6h as needed if HR above 120, and administered 40 mg iv lasix today
will recheck cmp tomm, also ordered a probnp
- Pt needs anticoagulation as Chadsvasc score is 2, so anticoagulation recc. Will start on Eliquis today at 9 pm while stopping subqu heparin.
- Continue to monitor vitals for instability.
- ordered echo
Sepsis with end organ damage due to possibly pneumonia:
- Criteria are met because on admission blood pressure of 89/48, WBC count of 27.9, a creatinine of 3.9 indicating kidney damage and a lactic acid of 4.7, decreased core body temperature
- Chest x-ray shows possible left basilar airspace opacities which may either be atelectasis or pneumonia
- blood cultures are negative, urine cultures negative
- Head CT is negative for any intracranial abnormalities
- Chest abdomen pelvis CT unremarkable
- Trend CMP, CBC, lactate, anion gap
- started patient on all his home meds
- PT reccs skilled rehab
- Upgraded patient to IDDSI 4 pur�ed diet as per speech's recommendation
- Patient is still on zosyn for SUSPECTED pneumonia based on imaging findings. Clinical correlation shows no fever, consistently elevated wbc, cough with sputum production, pleuritic chest pain. Ordered procalcitonin in AM to help us diagnose if
this is pneumonia and if negative will stop antibiotics.
- WBC is 16.7 from 19.6 yesterday trending down, LFT's still slightly elevated at AST- 443 and ALT-1105 but overall trending down, Cr + electrolytes + lactic all in the normal range.
- iv fluids stopped
Prerenal acute kidney injury:
- Creatinine is 1.2 and normalized today
-Maintain urine output of more than 0.5/mL/KG
NON Anion gap hyperchloremic metabolic acidosis
-Chloride is 112, carbon dioxide is 20, sodium is 142, patient is no longer in anion gap metabolic acidosis
-Patient is no longer hyperventilating
-Differential diagnosis is methanol usage, uremia, DKA, propylene glycol, isoniazid, lactic acidosis, ethylene glycol call, salicylates
-sterile saline with 150 mill equivalents of bicarb dc'd
-Treat the underlying cause
Rhabdomyolysis/hematuria:
-Total creatinine kinase is 247 from 1049
- Differential is sepsis, prolonged immobilization, hypoperfusion, secondary to excessive acetaminophen use, electrolyte abnormalities, hypothermia, seizures
- Hold patient's NSAIDs
Transaminitis with normal bilirubin level due to ischemic hepatitis:
- AST is 443 and ALT is 1105, both numbers more than double of yesterday, this is early transient phase of ischemic hepatitis, will observe if numbers plateau and/ or trend down
- Urine drug screen negative for acetaminophen toxicity
-Ordered ultrasound of the right upper quadrant to evaluate the liver, which was negative for causes like cholestasis, hepatitis, and fatty liver.
-fluid changed to normal saline
- hold patients nsaids
- ordered hepatitis panels in the AM
Essential hypertension:
- restarted amlodipine and lisinopril now that his blood pressure is stabilized
BPH:
- Restarted tamsulosin and finasteride
Hyperlipidemia:
- Hold simvastatin due to rhabdomyolysis
Dementia:
- restarted quetiapine due to patient's altered mental status state
Depression:
- restarted venlafaxine due to acute kidney injury
Hold acetaminophen due to ALIREZA and transaminitis
DVT prophylaxis is heparin
Full code
Anticipated Discharge: 24 - 48 hours
Subjective/Interval History
-
Date of Service: May 21, 2025
Overnight events- Patient had afib with a HR of 180's and decreased blood pressure, STAT ekg showed afib with RVR, she was started on Lopressor 5 mg IV x 1, HR came down to 120's, then started on Cardizem drip.
He feels short of breath and states he can feel his heart 'racing fast'. No dizziness, syncope, lightheadedness, nausea, vomiting, chest pain
Objective Data
-
Labs:
Laboratory Results
05/21/25
05:39
WBC 16.7 H
Hgb 12.9 L
Hct 39.0
Plt Count 179
Sodium 143
Potassium 3.8
Chloride 110 H
Carbon Dioxide 30
BUN 70 H
Creatinine 1.2
Glucose 107 H
Calcium 8.0 L
Total Bilirubin 1.1
AST 443 H
ALT 1105 H*
Alkaline Phosphatase 182 H
Vital Signs:
Vital Signs
Temp Pulse Resp BP Pulse Ox
99.4 F 116 25 90/56 95
05/21/25 07:30 05/21/25 12:01 05/21/25 12:01 05/21/25 12:01 05/21/25 12:01
I&O
05/20/25 05/21/25 05/22/25
06:59 06:59 06:59
Intake Total 50 / 50 1315.0 / 1315.0 240 / 240
Output Total 475 / 475 850 / 850 150 / 150
Balance -425 / -425 465.0 / 465.0 90 / 90
Review of Systems
-
History Source: Patient
All other systems: Reviewed and negative
Constitutional: Denies Fever, Weight Gain, Weight Loss, Fatigue or Chills
EENT: Reports Other (Dry oral mucous membranes)
Respiratory: Denies Cough or Wheezing
Cardiac: Denies Chest Pain, Diaphoresis or Syncope
Abdomen/GI: Denies Abdominal Pain, Nausea, Vomiting, Diarrhea, Constipated or Bloody Stools
Genitourinary: Denies Dysuria, Flank Pain, Incontinence, Difficulty Voiding, Urgency or Bleeding
Musculoskeletal: Denies Joint Pain
Neuro: Reports Weakness and Lightheadedness; Denies Dizzy or Headache
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
--- NOTE | 2025-05-21 15:40 | PTCARENOTE ---
pt calm after PRN ativan, Hr still elevated- fluctuating between 110-130. Cardizem gtt 15 BP soft. cardiology at bedside to see the pt, informed of CM update. No change in physical assessment
--- NOTE | 2025-05-21 16:12 | W.CHA2DS2VAS ---
[id number] Score
Score
Age in Years (65=0, 65-74=1, >/=75=2): 65-74
Sex (Female=+1): Male
Congestive Heart Failure History (Yes=+1): No
Hypertension History (Yes=+1): Yes
Stroke/TIA/Thromboembolism History (Yes=+2): No
Vascular Disease History (Yes=+1): No
Diabetes Mellitus (Yes=+1): No
Score >/=2 is otherwise an anticoagulation candidate: 2
[2025-05-21] MEDS: LASIX 40 MG IV (16:54)
[2025-05-21] MEDS: FLOMAX 0.4 MG PO (18:06)
[2025-05-21] MEDS: ELIQUIS 5 MG PO (20:51)
[2025-05-21] MEDS: NSS (PRESERVATIVE FREE) 0.125 ML IV (20:53)
--- NOTE | 2025-05-21 21:56 | PTCARENOTE ---
Assumed carer of pt from dayshift RN after change of shift report. B?L wrist restraints present per order. pt is arousable to verbal stimuli, able to state name. confused to situation, forgetful. inc of urine. pt provided HS bath and bed change.
tolerated HS medication. HR currently 105 bpm afib, cardizem gtt @ 15ml/hr, 15mg/hr per order for medication titration in sep. assessment as documented. safe environment maintained.
[2025-05-21] MEDS: REMERON 15 MG PO (22:02)
[2025-05-21] MEDS: NORVASC 5 MG PO (22:03)
[2025-05-21] MEDS: SEROQUEL 100 MG PO (22:03)
[2025-05-22] VITALS (34 sets, daily range): BP systolic 87–134; BP diastolic 55–83; PULSE 103; O2SAT 98; BMI 27.1
[2025-05-22] MEDS: ZOSYN 50 IV ×5 (00:26→23:04)
[2025-05-22] MEDS: CARDIZEM 125 IV (04:45)
[2025-05-22 05:05] LABS: Hematocrit 38.6 % (39.0-52.0); Hemoglobin 13.4 g/dL (13.0-18.0); Mean Corp Hgb Conc. 34.7 g/dL (33.0-37.0); Mean Corpuscular Volume 91.0 fL (80.0-94.0); Nucleated Red Blood Cells % 0 % (-); Platelet Count 168 10^3/uL (130-400); Red Cell Dist. Width 14.0 % (11.5-14.5)
[2025-05-22 05:55] LABS: Hepatitis B Surface Antigen Negative (Negative)
[2025-05-22 06:12] LABS: Hepatitis A Antibody, Total Negative (Negative); Hepatitis C Antibody Negative (Negative)
[2025-05-22] MEDS: PROTONIX 40 MG PO ×2 (08:25)
[2025-05-22] MEDS: ELIQUIS 5 MG PO ×2 (08:25→19:41)
[2025-05-22] MEDS: EFFEXOR XR 225 MG PO (08:25)
[2025-05-22] MEDS: PROSCAR 5 MG PO (08:25)
[2025-05-22] MEDS: LIDOCAINE 4% PATCH TOPICAL (08:26)
--- NOTE | 2025-05-22 08:48 | PTCARENOTE ---
Addendum entered by Huong Patterson RN 05/22/25 18:16:
Correction- patient was 'compliant' with morning care.
Original Note:
Patient is awake and alert at this time, Calm and cooperative. Oriented to person and time. Restraints removed at this time. Pulse ox on room air is 90%, notified resident. Patient is now on oxygen at 2 liters, pulse ox 92%. Patient is denying pain
when asked. Feeding himself breakfast. Complaint with morning care, took medications in apple sauce without signs of aspiration.
[2025-05-22] MEDS: LOPRESSOR 25 MG PO ×3 (10:21→17:28)
[2025-05-22 10:26] LABS: ALT (SGPT) 604 U/L (0-50); AST (SGOT) 122 U/L (17-59); Albumin 2.8 g/dl (3.5-5.0); Alkaline Phosphatase 136 U/L (38-126); Blood Urea Nitrogen 41 mg/dl (9-20); Calcium 7.7 mg/dl (8.4-10.2); Carbon Dioxide 31 mmol/L (22-30); Chloride 105 mmol/L (98-107); Estimated Creatinine Clearance 55 ml/min; Glucose 128 mg/dl (70-99); Potassium 3.2 mmol/L (3.5-5.1); Sodium 141 mmol/L (135-145); Total Protein 4.9 g/dl (6.3-8.2); eGFR > 60.00
[2025-05-22 10:55] LABS: Procalcitonin 25.44 ng/ml (0.0-0.25)
[2025-05-22] MEDS: CARDIZEM CD 120 MG PO ×2 (12:06→19:41)
--- NOTE | 2025-05-22 12:13 | W.PN.CARDCBS ---
Today's Communication / Plan
-
Delirium much improved
Convert IV diltiazem to diltiazem CD100 20 mg twice daily
Metoprolol 25 mg every 6 for rate control
Continue apixaban
Consider amiodarone as LFTs improve
Impression / Plan
-
PCP: Dr. Irwin Anthony
Cardiology: Dr. Andres, not seen since 06/19/2016
Impression:
Admitted with ALIREZA and sepsis 05/18/2025
Sepsis from possible PNA or UTI
Rhabdomyolysis, found on the floor and unclear if there was a fall
ALIREZA
Elevated LFTs
Paroxysmal A-fib with RVR
Not chronically anticoagulated by patient choice and low [id number] score at last cardiology interaction in 2015
BPH
HTN
Hyperlipidemia
Depression with history of suicide attempt 11/2024
Possible acute HF with previously preserved EF
Echo 06/19/2024: EF 55 to 60%, no significant valve disease, no change from last echo 06/2016
Plan:
Overall doing much better, management will be easier with improvement in his delirium and willingness to take pills.
Continue apixaban.
Stop amlodipine and substitute oral diltiazem CD 120mg bid
Oral metoprolol 25 q 6 and then consolidate
Await LFTs, if needed we could consider amiodarone despite shock liver.
Check echocardiogram
For now, focus on rate control and anticoagulation, patient may revert to sinus rhythm spontaneously.
Progress Note - Paraoptometric
Subjective
Date of Service: May 22, 2025:
79-year-old man admitted on May 18 after being found on the floor at home with acute kidney injury, sepsis, and peak CPK of 4072. Consult requested for new onset atrial fibrillation with rapid ventricular response.
PMH/PSH: PAF 2012, not anticoagulated, gallstone pancreatitis 2012, hypertension, depression with suicide attempt November 2024, cholecystectomy, tonsillectomy
SH: Single, lives alone
Current meds: IV diltiazem, tamsulosin 0.4 mg a day, Proscar 5 mg a day, lisinopril 10 mg daily (on hold), amlodipine 5 mg a day, Remeron 15 mg a day, Seroquel 100 mg at bedtime, lidocaine patch, Effexor XR 225 mg daily, Zosyn, pantoprazole 40 mg a
day, apixaban 5 mg twice daily, as needed Lopressor
127/82, pulse 120, respiratory 21, weight is 78.4 kg, now awake, pleasant, perseverating in conversation but saying thank you thank you, able to eat, taking pills, head neck exam unremarkable, lungs with rales in right base greater than left,
irregular rate and rhythm, still tachycardic JVD okay abdomen benign extremities without clubbing cyanosis or edema, neuro grossly nonfocal
Chest x-ray yesterday, cardiomegaly spinal stimulator, atherosclerosis of the arch, infiltrate
Hemoglobin 13.4, white count 9.2, platelets are 168, BUN and creatinine are pending, yesterday BUN and creatinine were 70 and 1.2, potassium was 3.8 sodium 143, ALT 1005, AST 443, proBNP 489, troponin 0.026
Objective
Labs:
05/22/25 04:54
05/22/25 09:41
Labs
Hgb 13.4 g/dL (13.0-18.0) 05/22/25 04:54
Hct 38.6 % (39.0-52.0) L 05/22/25 04:54
Plt Count 168 10^3/uL (130-400) 05/22/25 04:54
PT 17.4 Sec (11.4-14.6) H 05/20/25 22:50
INR 1.40 05/20/25 22:50
APTT 34.4 Sec (23.4-35.0) 05/20/25 22:50
Sodium 141 mmol/L (135-145) 05/22/25 09:41
Potassium 3.2 mmol/L (3.5-5.1) L 05/22/25 09:41
BUN 41 mg/dl (9-20) H 05/22/25 09:41
Creatinine 1.0 mg/dL (0.7-1.3) 05/22/25 09:41
Glucose 128 mg/dl (70-99) H 05/22/25 09:41
Troponins
05/19/25 05/20/25 05/20/25
15:29 05:05 22:50
Troponin I Cancelled 0.023 0.017
05/21/25
05:39
Troponin I 0.026 D
Vital Signs and I&O:
Vital Signs
Temp Pulse Resp BP Pulse Ox
36.7 C 99 17 94/61 96
05/22/25 03:00 05/22/25 12:06 05/22/25 12:00 05/22/25 12:06 05/22/25 12:00
Vital Signs
Temp Pulse Resp BP Pulse Ox
36.7 C 99 17 94/61 96
05/22/25 03:00 05/22/25 12:06 05/22/25 12:00 05/22/25 12:06 05/22/25 12:00
Intake & Output
05/20/25 05/21/25 05/22/25 05/23/25
07:59 07:59 07:59 07:59
Intake Total 50 / 50 1315.0 / 1315.0 240 / 240 200 / 200
Output Total 675 / 675 650 / 650 250 / 250
Balance -625 / -625 665.0 / 665.0 -10 / -10 200 / 200
Physical Exam
Physical Exam
see above
--- NOTE | 2025-05-22 12:45 | PTCARENOTE ---
Patient suddenly became agitated, confused to place, pulling of oxygen and IVs sites. Notified emergency medical technician and bilaterl soft wrist restraints were reapplied for safety. Patient was reoriented and therapeutic communication provided.
[2025-05-22] MEDS: KCL 270 MEQ IV (13:16)
--- NOTE | 2025-05-22 14:31 | CARDSERVLU ---
Echocardiogram with Lumason completed after protocol screening completed. Allergies verified.
Patent IV site: _Left arm cephalic 22 G PC____
IV site flushed with 0.9% NaCl pre and post administration.
Diluted bolus method utilized to enhance visualization of ventricular coates.
Total volume given: __2__ mL
Patient tolerated all procedures well without complications.
--- NOTE | 2025-05-22 14:44 | W.PN.HOSP.TC ---
Addendum entered and electronically signed by Kvng Sauceda MD 05/22/25 20:00:
Attending Addendum-
I saw and evaluated the patient. I reviewed the resident�s note and agree with findings and plan as documented in the resident�s note. Sub: Last PM was found to have SI and stating he wanted to kill himself. Currently denies SI or HI. Patient much
more calm and receptive today. Following commands and pleasant. Difficult to dicern speech. No complaints denies CP palps SOB confusion. Full 12 point ROS reviewed and negative except as documented Exam: Vitals reviewed in chart GEN-NAD heartirreg
irreg tachy lungs fine crackles at bases abd soft NT ND pos BS LE no edema Neuro AAO x 3 following commands ms 5/5 speech soft and not clear
Plan:
# Paroxysmal A fib with RVR-new
- transition Cardizem gtt->PO
- cont eliquis
- echo-P
- appreciate cards input- add metoprolol tartrate
- t/c amiodarone as LFTs trend down
#Sepsis likely from PNA
- cont zosyn x 7 day course
- procal extremely elevated
- wbc trending down to normal
- repeat CBC in am
# ALIREZA
-resolved DC IVF
-repeat BMP in am
# Suicide Ideation
-c/s psych for eval
# Hypokalemia- replete
# Metabolic acidosis
-resolved
# Rhabdomyolysis-resolved
# Transaminitis- shock liver repeat LFT's in am, continues to trend down-repeat LFT's in am
# Essential hypertension- restart amlodipine hold lisinopril
# BPH- restarted tamsulosin and finasteride
# Hyperlipidemia- Hold simvastatin due to rhabdomyolysis
# Dementia with behavioral disturbance- uetiapine at a high dose, cont ativan prn c/s psych for eval
# Depression- cont venlafaxine and Remeron for now, psych c/s for eval
-DVT prophylaxis-new Eliquis
code status--Full code will verify with medical POA
Dispo will likely need SNF on DC
Time spent coordinating care, review of plan of care with resident, personally reviewed records in EMR, med rec, consults, notes, labs, radiology, d/w nursing and psych � 51 mins
Original Note:
Today's Communication/Plan
-
- follow up with cardiology, continue to monitor vitals.
Assessment / Plan
Assessment / Plan
Paroxysmal Atrial Fibrillation with RVR:
- Stat ekg confirmed diagnosis of atrial fibrillation with RVR
- Chest Xray shows Mildly increased bronchovascular markings bilaterally which may indicate interstitial edema. Small left basilar opacity which may represent a combination of pleural fluid and/or airspace consolidation.
- Previously diagnosed with Afib after gallstone pancreatitis in 2012, converted to sinus rhythm and anticoagulant status is unknown
- Pt needs anticoagulation as Chadsvasc score is 2, so anticoagulation recc. Will start on Eliquis today at 9 pm while stopping subqu heparin.
- HR is 85 and well controlled.
- Continue to monitor vitals for instability.
- ordered echo ( still pending)
- cardiology changed IV cardipzem drip to PO Diltiazem extended release 120 mg po q12, and 25 mg po Metoprolol as needed q6h, continue apixaban, amiodarone is a possibility if rate control not achieved with b blockers or ca channel blockers.
Suicidal ideations with no active plan:
- Psychiatry following
- Diagnosed with Toxic metabolic encephalopathy superimposed on dementia and a possible diagnosis of PTSD
- decreased quetiapine to 50 mg and Remeron to 7.5 . Decreased effexor to 150 mg.
Sepsis with end organ damage due to possibly pneumonia:
- Criteria are met because on admission blood pressure of 89/48, WBC count of 27.9, a creatinine of 3.9 indicating kidney damage and a lactic acid of 4.7, decreased core body temperature
- Chest x-ray shows possible left basilar airspace opacities which may either be atelectasis or pneumonia
- blood cultures are negative, urine cultures negative
- Head CT is negative for any intracranial abnormalities
- Chest abdomen pelvis CT unremarkable
- Trend CMP, CBC, lactate, anion gap
- started patient on all his home meds
- PT reccs skilled rehab
- Upgraded patient to IDDSI 4 pur�ed diet as per speech's recommendation
- Procal is >25, will continue empiric zosyn
- WBC is 9.2 from 16.7 yesterday trending down, LFT's still slightly elevated at AST- 122 and ALT-604 but overall trending down, Cr + electrolytes + lactic all in the normal range.
- iv fluids stopped
Prerenal acute kidney injury:
- Creatinine is 1.2 and normalized today
-Maintain urine output of more than 0.5/mL/KG
NON Anion gap hyperchloremic metabolic acidosis
-Chloride is 105, carbon dioxide is 31, sodium is 141, patient is no longer in anion gap metabolic acidosis
-Patient is no longer hyperventilating
-Differential diagnosis is methanol usage, uremia, DKA, propylene glycol, isoniazid, lactic acidosis, ethylene glycol call, salicylates
-sterile saline with 150 mill equivalents of bicarb dc'd
-Treat the underlying cause
Rhabdomyolysis/hematuria:
- resolved
-Total creatinine kinase is 247 from 1049
- Differential is sepsis, prolonged immobilization, hypoperfusion, secondary to excessive acetaminophen use, electrolyte abnormalities, hypothermia, seizures
- Hold patient's NSAIDs
Transaminitis with normal bilirubin level due to ischemic hepatitis:
- AST is 122 and ALT is 604, both numbers more than double of yesterday, this is early transient phase of ischemic hepatitis, will observe if numbers plateau and/ or trend down
- Urine drug screen negative for acetaminophen toxicity
-Ordered ultrasound of the right upper quadrant to evaluate the liver, which was negative for causes like cholestasis, hepatitis, and fatty liver.
-fluid changed to normal saline
- hold patients nsaids
- hepatitis panels negative
Essential hypertension:
- continue amlodipine and lisinopril now that his blood pressure is stabilized
BPH:
- continue tamsulosin and finasteride
Hyperlipidemia:
- continue simvastatin due to rhabdomyolysis
Dementia:
- continue quetiapine due to patient's altered mental status state
Depression:
- continue venlafaxine due to acute kidney injury
DVT prophylaxis is eliquis
Full code
Anticipated Discharge: 24 - 48 hours
Subjective/Interval History
-
Date of Service: May 22, 2025
No acute medical complaints. States he wants to get out of here.
No overnight events.
Objective Data
-
Labs:
Laboratory Results
05/22/25 05/22/25
04:54 09:41
WBC 9.2
Hgb 13.4
Hct 38.6 L
Plt Count 168
Sodium Cancelled 141
Potassium Cancelled 3.2 L
Chloride Cancelled 105
Carbon Dioxide Cancelled 31 H
BUN Cancelled 41 H
Creatinine Cancelled 1.0
Glucose Cancelled 128 H
Calcium Cancelled 7.7 L
Total Bilirubin Cancelled 1.3
AST Cancelled 122 H
ALT Cancelled 604 H*
Alkaline Phosphatase Cancelled 136 H
Vital Signs:
Vital Signs
Temp Pulse Resp BP Pulse Ox
99.5 F 99 17 94/61 96
05/22/25 11:40 05/22/25 12:06 05/22/25 12:00 05/22/25 12:06 05/22/25 12:00
I&O
05/21/25 05/22/25 05/23/25
06:59 06:59 06:59
Intake Total 1315.0 / 1315.0 240 / 240 320 / 320
Output Total 850 / 850 250 / 250
Balance 465.0 / 465.0 -10 / -10 320 / 320
Review of Systems
-
History Source: Patient
All other systems: Reviewed and negative
Constitutional: Denies Fever, Weight Gain, Weight Loss, Fatigue or Chills
EENT: Reports Other (Dry oral mucous membranes)
Respiratory: Denies Cough or Wheezing
Cardiac: Denies Chest Pain, Diaphoresis or Syncope
Abdomen/GI: Denies Abdominal Pain, Nausea, Vomiting, Diarrhea, Constipated or Bloody Stools
Genitourinary: Denies Dysuria, Flank Pain, Incontinence, Difficulty Voiding, Urgency or Bleeding
Musculoskeletal: Denies Joint Pain
Neuro: Reports Weakness and Lightheadedness; Denies Dizzy or Headache
Physical Exam
-
General: Well Developed
HEENT: Other (Dry oral mucous membrane)
Respiratory: Crackles and Other (on 4 L oxygen)
Cardiac: Regular Rhythm and S1/S2
GI: Soft, Nondistended and Normal Bowel Sounds
Genito-urinary: Negative No Costovertebral Tender
Musculoskeletal: No Clubbing, No Cyanosis and No Edema
Skin: Warm, Dry and Other (Healed laceration of great toe on left foot)
Neuro: AO x 3
Psych: Calm and Agitated
Data Reviewed
-
Labs: Labs Reviewed by me and Discussed with Physician
--- NOTE | 2025-05-22 16:06 | CM ---
F/U: Patient became agitated again and needed to be restrained again. PLAN: Anticipate SNF.
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
[2025-05-22] MEDS: FLOMAX 0.4 MG PO (17:29)
[2025-05-22] MEDS: SEROQUEL 50 MG PO (19:38)
[2025-05-22] MEDS: REMERON 7.5 MG PO (19:42)
--- NOTE | 2025-05-22 22:59 | W.PN.UPDATE ---
Update Note
Progress Note Update
Reported by the nursing staff that the patient has a temp 100.7 axillary, per staff the room temp setup to 75. Room temp adjusted and rechecked temp 98.3. Normal WBC, patient currently on Zosyn.
-Positive hemetest in am, but the patient have open skin/ bleeding and irritation as having many loose BM's. Hgb 12.2 this am. vital signs at baseline. Patient currently not on anticoagulation. Will recheck hemetest and monitor h&h for any drop.
[2025-05-23] VITALS (21 sets, daily range): BP systolic 97–126; BP diastolic 54–87; BMI 27.1
[2025-05-23] MEDS: LOPRESSOR PO ×2 (00:17→05:30)
--- NOTE | 2025-05-23 00:18 | PTCARENOTE ---
Assumed care of PT from day RN. Pt b/l wrist restraints order in place. Pt continuing to attempt to get out of restrains and get oob appearing to be very anxious. Pt taking out left IV, new placed. HOT ROLL INSPECTOR made aware of Pt behavior, Remeron and Seroquel
given early in attempts to help Pt calm. Reassessment Pt appearing calm and not pulling against restraints. Pt appears to be sleeping, easily awoken to voice. Respirations even unlabored. Pt BP being soft meds held per HOT ROLL INSPECTOR. Pt having temp 100.7, room
thermostat put to down and blanket removed. Tylenol not given due to LFT's HOT ROLL INSPECTOR aware. On reassessment Pt temp 98.3.
[2025-05-23 04:32] LABS: Hematocrit 38.6 % (39.0-52.0); Hemoglobin 12.2 g/dL (13.0-18.0); Mean Corp Hgb Conc. 31.6 g/dL (33.0-37.0); Mean Corpuscular Volume 98.2 fL (80.0-94.0); Nucleated Red Blood Cells % 0 % (-); Platelet Count 137 10^3/uL (130-400); Red Cell Dist. Width 14.5 % (11.5-14.5)
--- NOTE | 2025-05-23 04:36 | PTCARENOTE ---
Pt continues to be incont of loose stool. Pt bottom becoming more excoriated and bleeding, rt placed for skin integrity. Pt last stool becoming darker greenish heme test positive. May have resulted positive from the excoriating and bleeding. Morning
labs do not show big change in h&h Pt vitals remain stable at this time. Night RELAY ASSOCIATE made aware of all.
[2025-05-23 04:44] LABS: ALT (SGPT) 377 U/L (0-50); AST (SGOT) 68 U/L (17-59); Albumin 2.5 g/dl (3.5-5.0); Alkaline Phosphatase 95 U/L (38-126); Blood Urea Nitrogen 41 mg/dl (9-20); Calcium 7.5 mg/dl (8.4-10.2); Carbon Dioxide 30 mmol/L (22-30); Chloride 112 mmol/L (98-107); Estimated Creatinine Clearance 55 ml/min; Glucose 128 mg/dl (70-99); Potassium 3.7 mmol/L (3.5-5.1); Sodium 145 mmol/L (135-145); Total Protein 4.6 g/dl (6.3-8.2); eGFR > 60.00
[2025-05-23] MEDS: ZOSYN 50 IV ×3 (05:27→17:52)
--- NOTE | 2025-05-23 08:18 | W.PN.CARDCBS ---
Today's Communication / Plan
-
Cont Cardizem CD 120 mg BID; Norvasc has been stopped.
Transition Metoprolol to 50 mg BID likely next 24 hrs
Cont Eliquis
EF 45% by recent echo. Cont medical therapy for now and reeval EF as outpt.
GDMT is limited by hypotension. Ultimately would consider rhythm control potentially as outpt, if he fails to convert, given slight drop in EF however for now would continue a rate control strategy given his current comorbidities and active issues.
Impression / Plan
-
.
PCP: Dr. Irwin Anthony
Cardiology: Dr. Andres, not seen since 06/19/2016
Impression:
Admitted with ALIREZA and sepsis 05/18/2025
Sepsis from possible PNA
Rhabdomyolysis, found on the floor and unclear if there was a fall
ALIREZA
Elevated LFTs
Paroxysmal A-fib with RVR
Not chronically anticoagulated by patient choice and low [id number] score at last cardiology interaction in 2015
CM with EF 45% by echo Apr 2025
BPH
HTN
Hyperlipidemia
Depression with history of suicide attempt 11/2024
Possible acute HF with previously preserved EF
Echo 06/19/2024: EF 55 to 60%, no significant valve disease, no change from last echo 06/2016
Echo May 22 2025: global hypokinesis most apparent in the apical and periapical segments, EF 45%, mild MR, mildly dilated aorta at sinuses of Valsalva
Plan:
Cont Cardizem CD 120 mg BID; Norvasc has been stopped.
Transition Metoprolol to 50 mg BID likely next 24 hrs
Cont Eliquis
EF 45% by recent echo. Cont medical therapy for now and reeval EF as outpt.
GDMT is limited by hypotension. Ultimately would consider rhythm control potentially as outpt, if he fails to convert, given slight drop in EF however for now would continue a rate control strategy given his current comorbidities and active issues.
LFTs are improving, cont to trend
Cont supportive care of sepsis, likely from PNA and depression. Psych input noted, TME superimposed on dementia with possible PTSD
Progress Note - Purification Director
Subjective
Date of Service: May 23, 2025
Pt seen and examined. He feels tired
Objective
Labs:
05/23/25 04:09
Labs
Hgb 12.2 g/dL (13.0-18.0) L 05/23/25 04:09
Hct 38.6 % (39.0-52.0) L 05/23/25 04:09
Plt Count 137 10^3/uL (130-400) 05/23/25 04:09
PT 17.4 Sec (11.4-14.6) H 05/20/25 22:50
INR 1.40 05/20/25 22:50
APTT 34.4 Sec (23.4-35.0) 05/20/25 22:50
Sodium 145 mmol/L (135-145) 05/23/25 04:09
Potassium 3.7 mmol/L (3.5-5.1) 05/23/25 04:09
BUN 41 mg/dl (9-20) H 05/23/25 04:09
Creatinine 1.0 mg/dL (0.7-1.3) 05/23/25 04:09
Glucose 128 mg/dl (70-99) H 05/23/25 04:09
Troponins
05/20/25 05/21/25
22:50 05:39
Troponin I 0.017 0.026 D
Vital Signs and I&O:
Vital Signs
Temp Pulse Resp BP Pulse Ox
98.4 F 102 15 97/60 97
05/23/25 07:20 05/23/25 06:00 05/23/25 06:00 05/23/25 06:00 05/23/25 06:00
Vital Signs
Temp Pulse Resp BP Pulse Ox
98.4 F 102 15 97/60 97
05/23/25 07:20 05/23/25 06:00 05/23/25 06:00 05/23/25 06:00 05/23/25 06:00
Intake & Output
05/21/25 05/22/25 05/23/25 05/24/25
06:59 06:59 06:59 06:59
Intake Total 1315.0 / 1315.0 240 / 240 740 / 740
Output Total 850 / 850 250 / 250 600 / 600
Balance 465.0 / 465.0 -10 / -10 140 / 140
Physical Exam
Physical Exam
General: No acute distress, Awake
Neck: Negative JVD
Heart: Irregularly irregular, Negative S3 positive S1/S2, Negative S4, No murmur
Lungs: CTA b/l, negative wheezes/rales/rhonchi
Abd: Positive BS, NT/ND, neg rebound/rigidity/guarding
Ext: Negative cyanosis/clubbing/edema
Neuro: nonfocal
[2025-05-23] MEDS: LIDOCAINE 4% PATCH TOPICAL (10:33)
[2025-05-23] MEDS: EFFEXOR XR 150 MG PO (10:33)
[2025-05-23] MEDS: ELIQUIS 5 MG PO ×2 (10:34→20:06)
[2025-05-23] MEDS: CARDIZEM CD 120 MG PO ×2 (10:34→20:06)
[2025-05-23] MEDS: PROSCAR 5 MG PO (10:34)
[2025-05-23 11:04] LABS: Hematocrit 41.7 % (39.0-52.0); Hemoglobin 13.5 g/dL (13.0-18.0)
--- NOTE | 2025-05-23 12:32 | PN.CDI ---
CDI
- -
CDI:
Physician Documentation Request
Admit Date: 05/18/25 19:02
Dear Doctor Briana,
Patient admitted with sepsis likely from pneumonia.
Found on floor at home.
Progress notes include 'Rhabdomyolysis'
Patients NSAIDS were held.
Please clarify the type of rhabdomyolysis
Traumatic
Nontraumatic
Other
Use of terms such as suspected, likely, concern for, or probable (associated with a specific diagnosis that is being evaluated, monitored, or treated as if it exists) are acceptable and can be coded in the inpatient setting, when documented at the
time of discharge.
Thank you,
Eugenia Navarro RN, BSN
CDI Specialist
tiger text
Please use your independent medical judgment in providing your response.
--- NOTE | 2025-05-23 12:38 | PN.CDI ---
CDI
- -
CDI:
Physician Documentation Request
Admit Date: 05/18/25 19:02
Dear Doctor Briana,
Patient admitted with sepsis likely due to pneumonia.
05/20 rapid response was called. Nursing documentation states 'During rapid, RN admin 5mg/5mL IV Lopressor given to patient in RAC IV. Patient was also found to be in 70-80% on room air and required nasal cannula at 10 L'
Please clarify which of the following accurately represents the patient's respiratory status during rapid response:
Acute respiratory failure - please indicate type
Hypoxia
Other
Additional information for Respiratory Failure:
Recognized criteria for Respiratory Failure (Source: Amanda Morales. 2019 June 14.
Documentation tips: Acute Respiratory Failure, The Hospitalist.)
ABGs: (1 or more) Symptoms Please indicate type if known
1. p)2 <60 or RA SPO2 <91% on RA 1. Tachypnea, SOB, dyspnea Hypoxic
2. pCO2 >45 and pH <7.35 2. Use of accessory muscles Hypercapnic
3. pO2 decrease of pCO2 increase by 3. Pallor or cyanosis Hypoxic and Hypercapnic
10 mmHg from baseline if known 4. Anxiety or restlessness Unable to determine
4. P/F Ratio (pO2/FiO2)nless than 300 5. Unable to speak in full sentences
Use of terms such as suspected, likely, concern for, or probable (associated with a specific diagnosis that is being evaluated, monitored, or treated as if it exists) are acceptable and can be coded in the inpatient setting, when documented at the
time of discharge.
Thank you,
Eugenia Navarro RN BSN
CDI Specialist
tiger text
Please use your independent medical judgment in providing your response.
[2025-05-23] MEDS: LOPRESSOR 25 MG PO ×2 (13:10→17:52)
--- NOTE | 2025-05-23 14:04 | W.PN.HOSP.TC ---
Addendum entered and electronically signed by Lincoln Warren MD, Resident 05/28/25 19:29:
Acute Hypoxemic respiratory failure:
- During rapid, RN admin 5mg/5mL IV Lopressor given to patient in [facility] IV. Patient was also found to be in 70-80% on room air and required nasal cannula at 10 L
- patient gradually weaned off O2 and resolved
Traumatic Rhabdomyolysis/hematuria:
- resolved
- recent Total creatinine kinase is 247 from 1049
- Differential is sepsis, prolonged immobilization, hypoperfusion, secondary to excessive acetaminophen use, electrolyte abnormalities, hypothermia, seizures
- Hold patient's NSAIDs
Addendum entered and electronically signed by Kvng Sauceda MD 05/23/25 20:48:
Attending Addendum-
I saw and evaluated the patient. I reviewed the resident�s note and agree with findings and plan as documented in the resident�s note. Sub: overnight had heme pos loose stools. h and h checked and stable. Denies SI or HI. Patient calm and receptive
today. Following commands and pleasant. 'im sorry for how i acted the other day' No complaints denies CP palps SOB confusion. Had isolated fever overnight. Full 12 point ROS reviewed and negative except as documented Exam: Vitals reviewed in chart
GEN-NAD heart irreg irreg tachy lungs fine crackles at bases abd soft NT ND pos BS LE no edema Neuro AAO x 3 following commands ms 5/5 speech soft not slurred coherent condom cath in place rectal- FMS in place dark brown stool loose
Plan:
# Paroxysmal A fib with RVR-new
- rates better controlled
- transitioned Cardizem gtt->PO tolerating well, cont metoprolol change to 50mg po BID in am
- cont eliquis
- echo 05/22-Small left ventricle with normal wall thickness, global hypokinesis most apparent in the apical and periapical segments, EF 45%. (down from 55-60% 05/2024)
- appreciate cards input
- t/c amiodarone as LFTs trend down
#HFmrEF
-new, not in AE
-start SGLT2i while inpatient, c/s CM to nicole out
-echo-EF down to 45%
#Sepsis likely from PNA
- cont zosyn x 7 day course
- procal extremely elevated
- wbc trending down to normal
- repeat CBC in am
# Acute Hypoxemic Respiratory Failure
- weaned off o2, resolved
# Fever
- navarro culture and check CXR
# GI bleed
- likely from hemorrhoids/irritation, h and h stable
- cont Eliquis CTM closely
# Diarrhea
- cont FMS
- check stool studies, likely from abx
- CTM t/c c diff if clinical picture warrants
# ALIREZA
-resolved
-repeat BMP in am
# Suicide Ideation/TME/ acute delirium
- from sepsis - resolving
- appreciate psych eval, repeat head CT WNL
- no indication for MRI
- decrease sedative meds CTM
# Metabolic acidosis
-resolved
# Traumatic Rhabdomyolysis-resolved
# Transaminitis- shock liver, continues to trend down-repeat LFT's in am
# Essential hypertension- DC amlodipine now on cardizem hold lisinopril due to hypotension
# BPH- rcont tamsulosin and finasteride
# Hyperlipidemia- Hold simvastatin due to rhabdomyolysis
# Dementia with behavioral disturbance- decrease quetiapine, cont ativan prn appreciated psych input
# Depression- decrease venlafaxine and Remeron, psych input appreciated
-DVT prophylaxis-new Eliquis
code status--Full code
Dispo will likely need SNF on DC
Time spent coordinating care, review of plan of care with resident, personally reviewed records in EMR, med rec, consults, notes, labs, radiology, d/w nursing � 53 mins
Original Note:
Today's Communication/Plan
-
- check cultures, follow up with cardiology
Assessment / Plan
Assessment / Plan
Paroxysmal Atrial Fibrillation with RVR
HFrEF:
- Stat ekg confirmed diagnosis of atrial fibrillation with RVR
- Chest Xray shows Mildly increased bronchovascular markings bilaterally which may indicate interstitial edema. Small left basilar opacity which may represent a combination of pleural fluid and/or airspace consolidation.
- Previously diagnosed with Afib after gallstone pancreatitis in 2013, converted to sinus rhythm and anticoagulant status is unknown
- Pt needs anticoagulation as Chadsvasc score is 2, so anticoagulation recc. Will start on Eliquis today at 9 pm while stopping subqu heparin.
- HR is 120 in the room today when i checked
- Continue to monitor vitals for instability.
- echo shows ejection fraction of 45% which is heart failure with moderately reduced ejection fraction, cards will monitor outpatient
- continue PO Diltiazem extended release 120 mg po q12, and 25 mg po Metoprolol as needed q6h, continue apixaban, amiodarone is a possibility if rate control not achieved with b blockers or ca channel blockers.
Diarrhea with FOBT positive stool:
- ordered stool cultures
Suicidal ideations with no active plan:
- Psychiatry following
- Diagnosed with Toxic metabolic encephalopathy superimposed on dementia and a possible diagnosis of PTSD
- decreased quetiapine to 50 mg and Remeron to 7.5 . Decreased effexor to 150 mg.
- Reordered wrist restraints
- MRI cancelled because patient has spinal stimulator, no clinical indication for MRI, previously noted to have garbled speech, but speech today was understandable
Sepsis with end organ damage due to possibly pneumonia:
- Criteria are met because on admission blood pressure of 89/48, WBC count of 27.9, a creatinine of 3.9 indicating kidney damage and a lactic acid of 4.7, decreased core body temperature
- Chest x-ray shows possible left basilar airspace opacities which may either be atelectasis or pneumonia
- blood cultures are negative, urine cultures negative
- Head CT is negative for any intracranial abnormalities
- Chest abdomen pelvis CT unremarkable
- Trend CMP, CBC, lactate, anion gap
- started patient on all his home meds
- PT reccs skilled rehab
- Upgraded patient to IDDSI 4 pur�ed diet as per speech's recommendation
- Procal is >25, will continue empiric zosyn, added panculture to recheck for infection
- WBC is 9.2 from 16.7 yesterday trending down, LFT's still slightly elevated at AST- 68 and ALT-377 but overall trending down, Cr + electrolytes + lactic all in the normal range.
- iv fluids stopped
Prerenal acute kidney injury:
- Creatinine is 1.0 and normalized today
-Maintain urine output of more than 0.5/mL/KG
NON Anion gap hyperchloremic metabolic acidosis
-Chloride is 105, carbon dioxide is 31, sodium is 141, patient is no longer in anion gap metabolic acidosis
-Patient is no longer hyperventilating
-Differential diagnosis is methanol usage, uremia, DKA, propylene glycol, isoniazid, lactic acidosis, ethylene glycol call, salicylates
-sterile saline with 150 mill equivalents of bicarb dc'd
-Treat the underlying cause
Rhabdomyolysis/hematuria:
- resolved
- recent Total creatinine kinase is 247 from 1049
- Differential is sepsis, prolonged immobilization, hypoperfusion, secondary to excessive acetaminophen use, electrolyte abnormalities, hypothermia, seizures
- Hold patient's NSAIDs
Transaminitis with normal bilirubin level due to ischemic hepatitis:
- AST is 68 and ALT is 377, both numbers more than double of yesterday, this is early transient phase of ischemic hepatitis, will observe if numbers plateau and/ or trend down
- Urine drug screen negative for acetaminophen toxicity
-Ordered ultrasound of the right upper quadrant to evaluate the liver, which was negative for causes like cholestasis, hepatitis, and fatty liver.
-fluid changed to normal saline
- hold patients nsaids
- hepatitis panels negative
Essential hypertension:
- holding patients lisinopril
BPH:
- continue tamsulosin and finasteride
Hyperlipidemia:
- hold simvastatin due to elevated transaminases
Dementia:
- continue quetiapine due to patient's altered mental status state
Depression:
- continue venlafaxine due to acute kidney injury
DVT prophylaxis is eliquis
Full code
Anticipated Discharge: Within 24 hours
Subjective/Interval History
-
Date of Service: May 23, 2025
No acute medical complaints. States he wants to get out of here.
Last night, he had multiple episodes of diarrhea with FOBT positive stool.
Objective Data
-
Labs:
Laboratory Results
05/23/25 05/23/25 05/23/25
04:09 10:00 16:00
WBC 9.6
Hgb 12.2 L 13.5 Pending
Hct 38.6 L 41.7 Pending
Plt Count 137
Sodium 145
Potassium 3.7
Chloride 112 H
Carbon Dioxide 30
BUN 41 H
Creatinine 1.0
Glucose 128 H
Calcium 7.5 L
Total Bilirubin 1.2
AST 68 H
ALT 377 H
Alkaline Phosphatase 95
05/23/25
22:00
WBC
Hgb Pending
Hct Pending
Plt Count
Sodium
Potassium
Chloride
Carbon Dioxide
BUN
Creatinine
Glucose
Calcium
Total Bilirubin
AST
ALT
Alkaline Phosphatase
Vital Signs:
Vital Signs
Temp Pulse Resp BP Pulse Ox
98.4 F 129 20 118/82 93
05/23/25 07:20 05/23/25 13:10 05/23/25 13:10 05/23/25 13:10 05/23/25 13:10
I&O
05/22/25 05/23/25 05/24/25
06:59 06:59 06:59
Intake Total 240 / 240 740 / 740
Output Total 250 / 250 600 / 600
Balance -10 / -10 140 / 140
Review of Systems
-
History Source: Patient
All other systems: Reviewed and negative
Constitutional: Denies Fever, Weight Gain, Weight Loss, Fatigue or Chills
EENT: Reports Other (Dry oral mucous membranes)
Respiratory: Denies Cough or Wheezing
Cardiac: Denies Chest Pain, Diaphoresis or Syncope
Abdomen/GI: Reports Other (fecal management system in place draining dark green stool ); Denies Abdominal Pain, Nausea, Vomiting, Diarrhea, Constipated or Bloody Stools
Genitourinary: Reports Other; Denies Dysuria, Flank Pain, Incontinence, Difficulty Voiding, Urgency or Bleeding
Musculoskeletal: Denies Joint Pain
Neuro: Reports Weakness and Lightheadedness; Denies Dizzy or Headache
Physical Exam
-
General: Well Developed
HEENT: Other (Dry oral mucous membrane)
Respiratory: Crackles (heard bilaterally both lungs) and Other (on 4 L oxygen)
Cardiac: Regular Rhythm and S1/S2
GI: Soft, Nondistended, Normal Bowel Sounds and Other (fecal management system in place draining dark green stool )
Genito-urinary: Negative No Costovertebral Tender
Musculoskeletal: No Clubbing, No Cyanosis and No Edema
Skin: Warm, Dry and Other (Healed laceration of great toe on left foot)
Neuro: AO x 3
Psych: Calm and Agitated
--- NOTE | 2025-05-23 16:48 | PTCARENOTE ---
Pt's assessment as documented. Orientation. Afib on tele monitor. Restraints remain in place for safety, see intervention. Safe environment maintained.
[2025-05-23] MEDS: FLOMAX 0.4 MG PO (17:52)
[2025-05-23] MEDS: REMERON 7.5 MG PO (21:18)
[2025-05-23] MEDS: AFRIN NASAL SPRAY 1 SPRAYS NASAL (21:18)
[2025-05-23] MEDS: SEROQUEL 50 MG PO (21:18)
[2025-05-23] MEDS: LOPRESSOR 5 MG IV (21:51)
--- NOTE | 2025-05-23 23:10 | W.PN.UPDATE ---
Update Note
Progress Note Update
pt seen, chart reviewed, spoke with staff analyst. has required soft restraints to prevent him from pulling lines (somehow managed to pull IV last nigth anyway.) on exam is pleaseant, able to describe his activities prior to admission (go[facility] 4 days per week, sung.) Pt knows he is in hospital, not sure why, feels he is getting excellent care here. Will continue to monitor, consider further reductions in effexor
[2025-05-24] VITALS (8 sets, daily range): BP systolic 98–126; BP diastolic 60–78
[2025-05-24] MEDS: ZOSYN 50 IV ×3 (00:08→12:53)
[2025-05-24] MEDS: LOPRESSOR 25 MG PO ×3 (00:08→12:54)
--- NOTE | 2025-05-24 05:32 | PTCARENOTE ---
Pt appearing to get rest over night. Respirations even unlabored. Pt mentation appearing to be clearer this AM. Pt asking questions about what happened and care he has received. Pt remains in restrains due to pulling at tubes and IV's and frequent
redirection.
[2025-05-24 05:36] LABS: Hematocrit 39.2 % (39.0-52.0); Hemoglobin 12.6 g/dL (13.0-18.0); Mean Corp Hgb Conc. 32.1 g/dL (33.0-37.0); Mean Corpuscular Volume 97.0 fL (80.0-94.0); Nucleated Red Blood Cells % 0 % (-); Platelet Count 151 10^3/uL (130-400); Red Cell Dist. Width 14.3 % (11.5-14.5)
--- NOTE | 2025-05-24 08:53 | PTCARENOTE ---
Patient received from slot shift manager. Patient resting comfortably in bed. AAOx2, VSS. No events noted overnight. No complaints of pain at this time. Currently on room air. Remains in B/L wrist restraints but is calm and cooperative, attempt off
later today. Continuing ABX. 2 view chest xray ordered, no other tests scheduled at this time. Call dill in reach.
--- NOTE | 2025-05-24 08:54 | W.PN.HOSP.TC ---
Addendum entered and electronically signed by Kvng Sauceda MD 05/24/25 20:33:
Attending Addendum-
I saw and evaluated the patient. I reviewed the resident�s note and agree with findings and plan as documented in the resident�s note. Sub: continues to have loose stools and fecal incontinence. Denies SI or HI. Patient calm and receptive. Following
commands and pleasant. Denies CP palps SOB confusion. no further fevers. Full 12 point ROS reviewed and negative except as documented Exam: Vitals reviewed in chart GEN-NAD heart irreg irreg no MRG lungs CTA B/L abd soft NT ND pos BS LE no edema
Neuro AAO x 3 following commands ms / speech soft and clear condom cath in place rectal- brown stool loose
Plan:
# Paroxysmal A fib with RVR-new
- rates better controlled
- cont Cardizem gtt->PO tolerating well
- transition metoprolol tartrate to succinate
- cont eliquis
- echo 05/22-Small left ventricle with normal wall thickness, global hypokinesis most apparent in the apical and periapical segments, EF 45%. (down from 55-60% 05/2024)
- appreciate cards input
- t/c amiodarone if needed as LFTs trend down
#HFmrEF
-new, not in AE
-start jardiance while inpatient, c/s CM to nicole out
-echo-EF down to 45%
# Hypokalemia-replete repeat BMP in am
#Sepsis likely from PNA
- cont zosyn 12/30
- procal extremely elevated
- wbc now normal
- repeat CBC in am
# Acute Hypoxemic Respiratory Failure
- weaned off o2, resolved
# Fever
- resolved
- cx stool, urine and blood-NGTD
- CXR-personally reviewed improving PNA
# GI bleed
- likely from hemorrhoids/irritation, h and h stable
- cont Eliquis CTM closely
# Diarrhea
- cont FMS
- check stool studies r/o c diff
# ALIREZA
-resolved
-repeat BMP in am
# Suicide Ideation/TME/ acute delirium
- resolved
- appreciate psych eval, repeat head CT WNL
- no indication for MRI
- decreased sedative meds- tolerating well, CTM
# Metabolic acidosis
-resolved
# Traumatic Rhabdomyolysis-resolved
# Transaminitis- shock liver, continues to trend down-repeat LFT's in am
# Essential hypertension- DC amlodipine now on cardizem hold lisinopril due to hypotension
# BPH- rcont tamsulosin and finasteride
# Hyperlipidemia- Hold simvastatin due to rhabdomyolysis/transaminitis
# Dementia with behavioral disturbance- resolved, decreased quetiapine, cont ativan prn appreciated psych input
# Depression- decreased venlafaxine and Remeron, psych input appreciated
-DVT prophylaxis-Eliquis
Code status--Full code->DNR
Dispo will likely need SNF on DC - come from home
ACP
Patient consented to discuss, was alone, time spent explanation of advance directives, changes in health status, patient�s health care wishes if the patient becomes unable to make health decisions, goals of care, code status, and prognosis 'i dont
want to take all these pill, i want to be DNR'- 16 minutes
Time spent coordinating care, review of plan of care with resident, personally reviewed previous records in EMR, med rec, labs, radiology, d/w nursing, family total time documented is exclusive of any additional time listed that was spent in advance
care planning discussion -�52 minutes
Original Note:
Today's Communication/Plan
-
- follow up cardiology, await cultures, observe heart rate
Assessment / Plan
Assessment / Plan
Paroxysmal Atrial Fibrillation with RVR
HFrEF:
- Stat ekg confirmed diagnosis of atrial fibrillation with RVR
- Chest Xray shows Mildly increased bronchovascular markings bilaterally which may indicate interstitial edema. Small left basilar opacity which may represent a combination of pleural fluid and/or airspace consolidation.
- Previously diagnosed with Afib after gallstone pancreatitis in 2013, converted to sinus rhythm and anticoagulant status is unknown
- Pt needs anticoagulation as Chadsvasc score is 2, so anticoagulation recc. Will start on Eliquis today at 9 pm while stopping subqu heparin.
- HR is 120 in the room today when i checked
- Continue to monitor vitals for instability.
- echo shows ejection fraction of 45% which is heart failure with moderately reduced ejection fraction, cards will monitor outpatient
- continue PO Diltiazem extended release 120 mg po q12, and 25 mg po Metoprolol as needed q6h, continue apixaban, amiodarone is a possibility if rate control not achieved with b blockers or ca channel blockers.
- will start patient on dapagliflozin 10 mg today
Diarrhea with FOBT positive stool:
- ordered stool cultures
Suicidal ideations with no active plan:
- Psychiatry following
- Diagnosed with Toxic metabolic encephalopathy superimposed on dementia and a possible diagnosis of PTSD
- decreased quetiapine to 50 mg and Remeron to 7.5 . Decreased effexor to 150 mg. continue.
- Reordered wrist restraints
- MRI cancelled because patient has spinal stimulator, no clinical indication for MRI, previously noted to have garbled speech, but speech today was understandable
Sepsis with end organ damage due to possibly pneumonia:
- Criteria are met because on admission blood pressure of 89/48, WBC count of 27.9, a creatinine of 3.9 indicating kidney damage and a lactic acid of 4.7, decreased core body temperature
- Chest x-ray shows possible left basilar airspace opacities which may either be atelectasis or pneumonia
- blood cultures are negative, urine cultures negative
- Head CT is negative for any intracranial abnormalities
- Chest abdomen pelvis CT unremarkable
- Trend CMP, CBC, lactate, anion gap
- started patient on all his home meds
- PT reccs skilled rehab
- Upgraded patient to IDDSI 4 pur�ed diet as per speech's recommendation
- Procal is >25, will continue empiric zosyn, added panculture to recheck for infection, will check x ray today
- WBC is 9.2 from 16.7 yesterday trending down, LFT's still slightly elevated at AST- 68 and ALT-377 but overall trending down, Cr + electrolytes + lactic all in the normal range.
- iv fluids stopped
Prerenal acute kidney injury:
- Creatinine is 1.0 and normalized today
-Maintain urine output of more than 0.5/mL/KG
NON Anion gap hyperchloremic metabolic acidosis
-Chloride is 105, carbon dioxide is 31, sodium is 141, patient is no longer in anion gap metabolic acidosis
-Patient is no longer hyperventilating
-Differential diagnosis is methanol usage, uremia, DKA, propylene glycol, isoniazid, lactic acidosis, ethylene glycol call, salicylates
-sterile saline with 150 mill equivalents of bicarb dc'd
-Treat the underlying cause
Rhabdomyolysis/hematuria:
- resolved
- recent Total creatinine kinase is 247 from 1049
- Differential is sepsis, prolonged immobilization, hypoperfusion, secondary to excessive acetaminophen use, electrolyte abnormalities, hypothermia, seizures
- Hold patient's NSAIDs
Transaminitis with normal bilirubin level due to ischemic hepatitis:
- previous AST is 68 and ALT is 377, both numbers more than double of yesterday, this is early transient phase of ischemic hepatitis, will observe if numbers plateau and/ or trend down
- Urine drug screen negative for acetaminophen toxicity
-Ordered ultrasound of the right upper quadrant to evaluate the liver, which was negative for causes like cholestasis, hepatitis, and fatty liver.
-fluid changed to normal saline
- hold patients nsaids
- hepatitis panels negative
Essential hypertension:
- holding patients lisinopril
BPH:
- continue tamsulosin and finasteride
Hyperlipidemia:
- hold simvastatin due to elevated transaminases
Dementia:
- continue quetiapine due to patient's altered mental status state
Depression:
- continue venlafaxine due to acute kidney injury
DVT prophylaxis is eliquis
Full code
Anticipated Discharge: 24 - 48 hours
Subjective/Interval History
-
Date of Service: May 24, 2025
No acute medical complaints.
No acute overnight events
Objective Data
-
Labs:
Laboratory Results
05/24/25 05/24/25
05:03 05:52
WBC 10.4
Hgb 12.6 L
Hct 39.2
Plt Count 151
Sodium Cancelled Pending
Potassium Cancelled Pending
Chloride Cancelled Pending
Carbon Dioxide Cancelled Pending
BUN Cancelled Pending
Creatinine Cancelled Pending
Glucose Cancelled Pending
Calcium Cancelled Pending
Total Bilirubin Cancelled Pending
AST Cancelled Pending
ALT Cancelled Pending
Alkaline Phosphatase Cancelled Pending
Vital Signs:
Vital Signs
Temp Pulse Resp BP Pulse Ox
98.0 F 113 13 113/60 96
05/24/25 04:04 05/24/25 06:05 05/24/25 06:00 05/24/25 06:05 05/24/25 06:00
I&O
05/23/25 05/24/25 05/25/25
06:59 06:59 06:59
Intake Total 740 / 740 1120 / 1120
Output Total 600 / 600 900 / 900
Balance 140 / 140 220 / 220
Review of Systems
-
History Source: Patient
All other systems: Reviewed and negative
Constitutional: Denies Fever, Weight Gain, Weight Loss, Fatigue or Chills
EENT: Reports Other (Dry oral mucous membranes)
Respiratory: Denies Cough or Wheezing
Cardiac: Denies Chest Pain, Diaphoresis or Syncope
Abdomen/GI: Reports Other (fecal management system in place draining dark green stool ); Denies Abdominal Pain, Nausea, Vomiting, Diarrhea, Constipated or Bloody Stools
Genitourinary: Reports Other; Denies Dysuria, Flank Pain, Incontinence, Difficulty Voiding, Urgency or Bleeding
Musculoskeletal: Denies Joint Pain
Neuro: Reports Weakness and Lightheadedness; Denies Dizzy or Headache
Physical Exam
-
General: Well Developed
HEENT: Other (Dry oral mucous membrane)
Respiratory: Crackles (heard bilaterally both lungs) and Other (on 4 L oxygen)
Cardiac: Regular Rhythm and S1/S2
GI: Soft, Nondistended and Normal Bowel Sounds
Genito-urinary: Negative No Costovertebral Tender
Musculoskeletal: No Clubbing, No Cyanosis and No Edema
Skin: Warm, Dry and Other (Healed laceration of great toe on left foot)
Neuro: AO x 3
Psych: Calm and Agitated
Data Reviewed
-
Labs: Labs Reviewed by me and Discussed with Physician
[2025-05-24] MEDS: AFRIN NASAL SPRAY 1 SPRAYS NASAL (09:19)
[2025-05-24] MEDS: CARDIZEM CD 120 MG PO (11:01)
[2025-05-24] MEDS: ELIQUIS 5 MG PO (11:02)
[2025-05-24] MEDS: EFFEXOR XR 150 MG PO (11:02)
[2025-05-24] MEDS: LIDOCAINE 4% PATCH TOPICAL ×2 (11:02→12:56)
[2025-05-24] MEDS: PROSCAR 5 MG PO (11:04)
[2025-05-24] MEDS: PROTONIX 40 MG PO (11:05)
--- NOTE | 2025-05-24 13:18 | W.PN.UPDATE ---
Update Note
Progress Note Update
patient seen chart reviewed. spoke with nursing and with PT. mr heller's speech is improved as is his interaction with staff. he is struggling with diarrhea and expressed embarrassment at incontinence. he spoke with me on a very limited basis.
he told me he does see a psychiatrist at [facility] who prescribes for him. he feels his medications are helpful 'to cope'. he kept falling asleep as i attempted talk with him. did not make any med changes as only two days ago i halved
remeron and seroquel as cut back effexor to 150 mg will try to speak with him again tomorrow
--- NOTE | 2025-05-24 14:25 | W.PN.CARDCBS ---
Addendum entered and electronically signed by Renata Reyes MD 05/24/25 15:41:
I saw and examined the patient.
The Public Health Policy Analyst's note was reviewed and I agree with the note.
Comment:
He walked with physical therapy today. He is worn out. He denies chest pain and palpitations. Complex situation with multiple comorbidities. He was initially admitted with sepsis and acute kidney injury. He had rhabdomyolysis with fall of
unclear duration on the floor. He struggles with depression and recent suicide attempt 11/2024 but feels that he is doing better at the current time. He has atrial fibrillation with plan for rate control and oral anticoagulation.
We have switched his short acting beta-ana lilia to Toprol-XL. Follow heart rates on telemetry. Continue oral anticoagulation.
Continue to follow blood pressure. He has heart failure with mildly reduced ejection fraction. Volume status clinically appears stable.
Original Note:
Today's Communication / Plan
-
Lopressor changed to Toprol XL 50 mg BID
Continue Eliquis
Impression / Plan
-
.
PCP: Dr. Irwin Anthony
Cardiology: Dr. Andres, not seen since 06/19/2016
Impression:
Admitted with ALIREZA and sepsis 05/18/2025
Sepsis from possible PNA
Rhabdomyolysis, found on the floor and unclear if there was a fall
ALIREZA
Elevated LFTs
Paroxysmal A-fib with RVR
Not chronically anticoagulated by patient choice and low [id number] score at last cardiology interaction in 2015
CM with EF 45% by echo Apr 2025
BPH
HTN
Hyperlipidemia
Depression with history of suicide attempt 11/2024
Possible acute HF with previously preserved EF
Echo 06/19/2024: EF 55 to 60%, no significant valve disease, no change from last echo 06/2016
Echo 05/22/2025: global hypokinesis most apparent in the apical and periapical segments, EF 45%, mild MR, mildly dilated aorta at sinuses of Valsalva
Plan:
-Patient admitted after being found on the floor in his home for an unknown amount of time, possibly days, and was admitted with sepsis and rhabdomyolysis. Cardiology was consulted for A-fib with RVR that happened several days into the admission.
-Telemetry reviewed by me and patient remains in A-fib with heart rates generally less than 120
-New to Cardizem CD 120 mg daily this admission. Outpatient dose of amlodipine has been stopped.
-New to Lopressor this admission, will transition to Toprol-XL 50 mg BID starting 05/24/2025, orders placed by me
-Patient has a known history of paroxysmal A-fib that was initially diagnosed in the setting of gallstone pancreatitis in 2012 and then no symptomatic recurrence documented when he followed with cardiology up until 2016. He patient was not on OAC
previously by his choice and overall lack of recurrent symptomatic A-fib.
-New to Eliquis 5 mg BID and he initially refused PO meds, but now agreeable and has been appreciative of efforts to help him feel better.
-EF was 45% by echo 05/22/2025 and patient received a single dose of Lasix 40 mg IV x 1, no additional attempts at diuresis. In hindsight doubt patient had acute HF and no additional diuresis planned.
-GDMT is limited by hypotension. Ultimately would consider rhythm control potentially as outpt, if he fails to convert, given slight drop in EF however for now would continue a rate control strategy given his current comorbidities and active issues.
Progress Note - Intelligence Officer
Subjective
Date of Service: May 24, 2025
He is tired after working with PT
Objective
Labs:
05/24/25 05:03
Labs
Hgb 12.6 g/dL (13.0-18.0) L 05/24/25 05:03
Hct 39.2 % (39.0-52.0) 05/24/25 05:03
Plt Count 151 10^3/uL (130-400) 05/24/25 05:03
PT 17.4 Sec (11.4-14.6) H 05/20/25 22:50
INR 1.40 05/20/25 22:50
APTT 34.4 Sec (23.4-35.0) 05/20/25 22:50
Sodium Cancelled 05/24/25 12:56
Potassium Cancelled 05/24/25 12:56
BUN Cancelled 05/24/25 12:56
Creatinine Cancelled 05/24/25 12:56
Glucose Cancelled 05/24/25 12:56
Vital Signs and I&O:
Vital Signs
Temp Pulse Resp BP Pulse Ox
98.5 F 116 13 115/71 93
05/24/25 09:35 05/24/25 12:54 05/24/25 06:00 05/24/25 12:54 05/24/25 08:36
Vital Signs
Temp Pulse Resp BP Pulse Ox
98.5 F 116 13 115/71 93
05/24/25 09:35 05/24/25 12:54 05/24/25 06:00 05/24/25 12:54 05/24/25 08:36
Intake & Output
05/22/25 05/23/25 05/24/25 05/25/25
06:59 06:59 06:59 06:59
Intake Total 240 / 240 740 / 740 1120 / 1120
Output Total 250 / 250 600 / 600 900 / 900
Balance -10 / -10 140 / 140 220 / 220
Physical Exam
Physical Exam
GEN: NAD
LUNGS: RA. Clear anterolaterally with poor inspiratory effort
CV: A-fib on telemetry.
[2025-05-24 15:38] LABS: ALT (SGPT) 212 U/L (0-50); AST (SGOT) 58 U/L (17-59); Albumin 2.6 g/dl (3.5-5.0); Alkaline Phosphatase 109 U/L (38-126); Blood Urea Nitrogen 26 mg/dl (9-20); Calcium 8.0 mg/dl (8.4-10.2); Carbon Dioxide 27 mmol/L (22-30); Estimated Creatinine Clearance 69 ml/min; Glucose 133 mg/dl (70-99); Total Protein 4.7 g/dl (6.3-8.2); eGFR > 60.00
[2025-05-24 15:51] LABS: Chloride 106 mmol/L (98-107); Potassium 3.2 mmol/L (3.5-5.1); Sodium 139 mmol/L (135-145)
--- NOTE | 2025-05-24 16:31 | CM ---
F/U: Patient is still restrained and limited with PT/OT due to liquid BM. LUIS A Marybeth spoke to [id number] who said that they have no preference, just close to his home is fine. CM to follow up when not restrained. PLAN: SNF when ready.
[2025-05-24] MEDS: FLOMAX PO (17:27)
[2025-05-24] MEDS: ZOSYN IV ×2 (17:27→23:31)
--- NOTE | 2025-05-24 17:27 | PTCARENOTE ---
Patient no longer in restraints, calm alert and cooperative. Expressed multiple times today about changing his CODE STATUS and that he does not want any more medications. Hospitalist and Resident made aware, CODE STATUS changed to DNR. Patient is
beginning to refuse all medications. Stated that he does not want anything that would make him better. Each medication is reviewed and benefit explained prior to him refusing.
--- NOTE | 2025-05-24 19:37 | PTCARENOTE ---
Report called to Janice Marcum RN.
[2025-05-24] MEDS: AFRIN NASAL SPRAY NASAL (20:36)
[2025-05-24] MEDS: CARDIZEM CD PO (20:37)
[2025-05-24] MEDS: ELIQUIS PO (20:37)
--- NOTE | 2025-05-24 20:45 | PTCARENOTE ---
pt with large BM at start of shift. inc urine. HS bath given. hygiene provided. Pt refusing hs meds. see mar. alert to self. VSS. Pt transported to 3[facility] to room 338.
[2025-05-24] MEDS: REMERON PO (21:10)
[2025-05-24] MEDS: SEROQUEL PO (21:10)
--- NOTE | 2025-05-24 21:35 | PTCARENOTE ---
Pt received to [facility] from IMU. A&O to self and time. Pt refusing temperature being taken as well as any medications. Education provided. Pt still refusing at this time. Plan of care ongoing.
[2025-05-25 03:35] VITALS: BP 97/57
--- NOTE | 2025-05-25 03:38 | PTCARENOTE ---
Addendum entered by Janice Bullock RN 05/25/25 05:10:
Pt asymptomatic. Discussed high heart rate and risks of not taking lopressor with pt. Pt verbalized understanding and stated that he still wished to refuse.
Original Note:
Pt with HR spiking in the 130s. This RN attempted to administer PRN IV lopressor to patient. Patient adamantly refusing all medications. Education provided about medication. Patient continuing to refuse stating, 'Thank you anyway. I don't want any
other medicine here.' FOZIA Fermin notified of pt HR and refusal of medications. Plan of care ongoing.
--- NOTE | 2025-05-25 07:10 | PTCARENOTE ---
Pt refusing oral and IV medication. HR 120's-140's. Pt stated, 'I do not want any medicine from you and I do not want anything at all moving forward'. This RN and nightshift at RN informed patient of effects of continuous elevated heart rate, pt
stated that he is aware and continued to refuse. Pt expressed that he does not want anymore treatment and would lie to be with his who has . Hospitalist and resident made aware.
[2025-05-25 07:50] VITALS: BP 144/80
[2025-05-25] MEDS: EFFEXOR XR PO (08:00)
[2025-05-25] MEDS: LIDOCAINE 4% PATCH TOPICAL (08:00)
[2025-05-25] MEDS: PROTONIX PO (08:00)
[2025-05-25] MEDS: AFRIN NASAL SPRAY NASAL (08:00)
[2025-05-25] MEDS: CARDIZEM CD PO (08:00)
[2025-05-25] MEDS: PROSCAR PO (08:00)
[2025-05-25] MEDS: ELIQUIS PO (08:00)
--- NOTE | 2025-05-25 08:35 | PTCARENOTE ---
HR 140's-150's. MD and resident made aware. Resident at bedside. Pt continued to refuse oral and IV medications. Pt educated on effects of elevated HR, pt verbalized understanding.
[2025-05-25 08:46] LABS: Hematocrit 39.7 % (39.0-52.0); Hemoglobin 12.8 g/dL (13.0-18.0); Mean Corp Hgb Conc. 32.2 g/dL (33.0-37.0); Mean Corpuscular Volume 94.7 fL (80.0-94.0); Nucleated Red Blood Cells % 0 % (-); Platelet Count 211 10^3/uL (130-400); Red Cell Dist. Width 14.0 % (11.5-14.5)
--- NOTE | 2025-05-25 08:51 | PN.CDI ---
CDI
- -
CDI:
Physician Documentation Request
Admit Date: 05/18/25 19:02
Dear Doctor/Resident ,
Please review the following and provide your response in the progress notes.
Clinical Indicators:
The diagnosis of interstitial edema. was included in the signed CXR 05/20.
Additional clinical indicators in the chart include:
Pt admitted with Sepsis 2/2 PNA/Acute Hypoxic Respiratory Failure
Progress note 05/24,' HFrEF...Chest Xray shows Mildly increased bronchovascular markings bilaterally which may indicate interstitial edema. Small left basilar opacity which may represent a combination of pleural fluid and/or airspace
consolidation...'
Cardiology Progress note 05/24, '-EF was 45% by echo 05/22/2025 and patient received a single dose of Lasix 40 mg IV x 1, no additional attempts at diuresis. In hindsight doubt patient had acute HF and no additional diuresis planned....'
Please provide a diagnosis for the above findings/IV Lasix use:
Acute Non-cardiogenic Pulmonary Edema
Chronic systolic CHF only
Other ( please specify)
Use of terms such as suspected, likely, concern for, or probable are acceptable for a diagnosis that is being evaluated, monitored or treated as if it exists and can be coded in the inpatient setting, when documented at the time of discharge.
Thank you,
Rose Urias RN
CDI Specialist
[place] [facility]
Please use your independent medical judgment in providing your response.
--- NOTE | 2025-05-25 08:58 | PN.CDI ---
CDI
- -
CDI:
Physician Documentation Request
Admit Date: 05/18/25 19:02
Dear Doctor/Resident,
Please review the following and provide your response in the progress notes.
Clinical Indicators:
Pt admitted with Sepsis 2/2 PNA/Acute Hypoxic Respiratory Failure
Nursing wound care 05/18 note, 'Present on admission sacrum pressure injury stage 1 ...treatment provider barrier ointment...'
Physician documentation of the type and location of wounds is required for compliant documentation. Based on the above clinical findings and your assessment, please provide the following in your progress note:
1. Location of the ulcer/wound, including laterality.
2. Type (etiology) of ulcer/wound:
- Pressure (decubitus) ulcer
- Non-pressure ulcer
- Other ( please specify)
Use of terms such as suspected, likely, concern for, or probable (associated with a specific diagnosis that is being evaluated, monitored, or treated as if it exists) are acceptable and can be coded in the inpatient setting, when documented at the
time of discharge.
Thank you,
Rose Urias RN
CDI Specialist
[place] [facility]
Please use your independent medical judgment in providing your response.
*Source: National Pressure Ulcer Advisory Panel (NPUAP)
[2025-05-25 09:11] LABS: ALT (SGPT) 152 U/L (0-50); AST (SGOT) 37 U/L (17-59); Albumin 2.4 g/dl (3.5-5.0); Alkaline Phosphatase 104 U/L (38-126); Blood Urea Nitrogen 22 mg/dl (9-20); Calcium 7.7 mg/dl (8.4-10.2); Carbon Dioxide 26 mmol/L (22-30); Chloride 107 mmol/L (98-107); Estimated Creatinine Clearance 69 ml/min; Glucose 106 mg/dl (70-99); Potassium 3.0 mmol/L (3.5-5.1); Sodium 138 mmol/L (135-145); Total Protein 4.5 g/dl (6.3-8.2); eGFR > 60.00
--- NOTE | 2025-05-25 10:15 | PTCARENOTE ---
Welding Machine Operator Thermit at bedside. Welding Machine Operator Thermit made aware of elevated HR, 130's-150's. MD inquired patient if he wants to continue refusing medications for heart rate, pt stated yes.
--- NOTE | 2025-05-25 10:27 | ITS.CL.CARDI ---
Addendum entered and electronically signed by Tyron Jones MD 05/26/25 07:52:
Disregard this report. It is for a different patient.
Original Note:
Photoflash Powder Mixer - Cardioversion
Cardioversion
Procedure Report:
Date of Procedure: 05/25/25
Procedure: Cardioversion
Indication: Symptomatic atrial fibrillation
Performing Physician: Tyron Jones MD
Technique: The patient was brought to the holding area. Signed informed consent was obtained. A time out was called and performed. The patient was anesthetized by the anesthesia service. Anticoagulation status was reviewed and appropriate. R2 pads
were placed anteriorly and posteriorly. After LISSET revealed no TERESE thrombus, a 200 J synchronized biphasic shock restored normal sinus rhythm without significant bradycardia. There were no complications.
Conclusion: Uncomplicated cardioversion from atrial fibrillation to sinus rhythm.
Recommendation: Routine post cardioversion care. Continue exterminator helper anticoagulation.
--- NOTE | 2025-05-25 10:37 | W.PN.CARDCBS ---
Today's Communication / Plan
-
He is refusing all meds at this time
Rec psych evaluation to assess competency to make decisions regarding DNR/end of life decisions
Would resume Toprol/Diltiazem/Eliquis if pt is agreeable
Impression / Plan
-
.
PCP: Dr. Irwin Anthony
Cardiology: Dr. Andres, not seen since 06/19/2016
Impression:
Admitted with ALIREZA and sepsis 05/18/2025
Sepsis from possible PNA
Rhabdomyolysis, found on the floor and unclear if there was a fall
ALIREZA
Elevated LFTs
Paroxysmal A-fib with RVR
Not chronically anticoagulated by patient choice and low [id number] score at last cardiology interaction in 2015
CM with EF 45% by echo Apr 2025
BPH
HTN
Hyperlipidemia
Depression with history of suicide attempt 11/2024
Possible acute HF with previously preserved EF
Echo 06/19/2024: EF 55 to 60%, no significant valve disease, no change from last echo 06/2016
Echo 05/22/2025: global hypokinesis most apparent in the apical and periapical segments, EF 45%, mild MR, mildly dilated aorta at sinuses of Valsalva
Plan:
-Patient admitted after being found on the floor in his home for an unknown amount of time, possibly days, and was admitted with sepsis and rhabdomyolysis. Cardiology was consulted for A-fib with RVR that happened several days into the admission.
-Telemetry reviewed by me and patient remains in A-fib with HR in the 130-150 range.
-He is currently declining all meds.
-Patient has a known history of paroxysmal A-fib that was initially diagnosed in the setting of gallstone pancreatitis in 2012 and then no symptomatic recurrence documented when he followed with cardiology up until 2016. He patient was not on OAC
previously by his choice and overall lack of recurrent symptomatic A-fib.
-Also refusing Eliquis
-Recommend psych eval to eval for depression/competency. I suspect he is depressed.
-EF was 45% by echo 05/22/2025 and patient received a single dose of Lasix 40 mg IV x 1, no additional attempts at diuresis. In hindsight doubt patient had acute HF and no additional diuresis planned.
-GDMT is limited by hypotension. Ultimately would consider rhythm control potentially as outpt, if he fails to convert, given slight drop in EF however for now would continue a rate control strategy given his current comorbidities and active issues.
Progress Note - Grades 7 8 Tutor
Subjective
Date of Service: May 25, 2025
pt denies chest pains/palpitations. he is declining all medication. States he no longer wants care
Objective
Labs:
05/25/25 08:03
05/25/25 08:03
Labs
Hgb 12.8 g/dL (13.0-18.0) L 05/25/25 08:03
Hct 39.7 % (39.0-52.0) 05/25/25 08:03
Plt Count 211 10^3/uL (130-400) D 05/25/25 08:03
PT 17.4 Sec (11.4-14.6) H 05/20/25 22:50
INR 1.40 05/20/25 22:50
APTT 34.4 Sec (23.4-35.0) 05/20/25 22:50
Sodium 138 mmol/L (135-145) 05/25/25 08:03
Potassium 3.0 mmol/L (3.5-5.1) L 05/25/25 08:03
BUN 22 mg/dl (9-20) H 05/25/25 08:03
Creatinine 0.8 mg/dL (0.7-1.3) 05/25/25 08:03
Glucose 106 mg/dl (70-99) H 05/25/25 08:03
Vital Signs and I&O:
Vital Signs
Temp Pulse Resp BP Pulse Ox
98.4 F 133 18 144/80 96
05/25/25 07:50 05/25/25 08:00 05/25/25 07:50 05/25/25 08:00 05/25/25 07:50
Vital Signs
Temp Pulse Resp BP Pulse Ox
98.4 F 133 18 144/80 96
05/25/25 07:50 05/25/25 08:00 05/25/25 07:50 05/25/25 08:00 05/25/25 07:50
Intake & Output
05/23/25 05/24/25 05/25/25 05/26/25
06:59 06:59 06:59 06:59
Intake Total 740 / 740 1120 / 1120 280 / 280
Output Total 600 / 600 900 / 900 100 / 100
Balance 140 / 140 220 / 220 180 / 180
Physical Exam
Physical Exam
GEN: No distress, awake
HEENT: supple, anicteric, mmm
LUNGS: CTA, no wheezes/rales
CV: Irreg, S1/S2, 1/6 syst LSB, no gallop
ABD: soft, BS+, NT/ND
EXT: No edema
NEURO: Gross non-focal
SKIN: No rash
[2025-05-25 12:07] VITALS: BP 133/66
--- NOTE | 2025-05-25 12:24 | CM ---
Consult received for hospice care at pt's request; referral sent to [facility] for evaluation. Pt has been refusing medication and care.
Plan: Await hospice evaluation. CM will continue to follow.
--- NOTE | 2025-05-25 12:26 | HOSPNOTE ---
Addendum entered by Kellen Wilder RN 05/25/25 13:20:
The plan may be to admit inpatient hospice over the weekend. The patient is refusing all medications elevated heart rate and patient still refusing meds. The patient is unable to go home it is not a safe environment and patient lives alone.
[facility]ianna is involved and we are trying to admit patient inpatient over the weekend as long as patient is symptomatic. I will call admissions and try to get a bed on [address] and place patient on comfort and then transition to inpatient hospice. Will
await call back from Resident with the plan.
Original Note:
Reviewed hospice with family and patient resides by himself and will need caregivers while on hospice. I placed a call to sister in law and she will speak with patient and get back to me. More information to follow.
--- NOTE | 2025-05-25 12:39 | W.PN.UPDATE ---
Update Note
Progress Note Update
patient seen chart reviewed. case discussed with dr multani and his team as well as nursing staff. the patient made it clear when i saw him that he wanted no further treatment . he understood that he could with no further treatment and this was
not unpalatable for him. he wants to be with his and does not want to live anymore without her. he was more with it yesterday. today he told me he was 'at home' he could tell me he lived in [place]. i spoke to his sister in law today.
the patient called her and her yesterday and told them of his plan to refuse meds and that he wanted to be allowed to . sister in law is concerned he is wanting to go home to kill himself. hospice is being consulted. have alerted
hospice and dr multani about this development. i will chinik back and talk to him again today.
--- NOTE | 2025-05-25 14:11 | W.PN.HOSP.TC ---
Addendum entered and electronically signed by Lincoln Warren MD, Resident 05/28/25 19:27:
Stage 1 pressure ulcer of B/L heels:
- consulted wound care, apply dressings, elevate on pillow, open to air
Paroxysmal Atrial Fibrillation with RVR
Heart failure with moderately reduced ejection fraction:
- Stat ekg confirmed diagnosis of atrial fibrillation with RVR
- Chest Xray shows Mildly increased bronchovascular markings bilaterally which may indicate interstitial edema. Small left basilar opacity which may represent a combination of pleural fluid and/or airspace consolidation.
- Previously diagnosed with Afib after gallstone pancreatitis in 2012, converted to sinus rhythm and anticoagulant status is unknown
- Pt needs anticoagulation as Chadsvasc score is 2, so anticoagulation recc. Will start on Eliquis today at 9 pm while stopping subqu heparin.
- HR is 133 in the room today when i checked
- Continue to monitor vitals for instability.
- echo shows ejection fraction of 45% which is heart failure with moderately reduced ejection fraction, cards will monitor outpatient. Lasix 1 dose 40 mg was given.
- Patient is refusing all meds, does not want to take any more medications
Addendum entered and electronically signed by Kvng Sauceda MD 05/25/25 21:42:
Attending Addendum-
I saw and evaluated the patient. I reviewed the resident�s note and agree with findings and plan as documented in the resident�s note. Sub: Called by nuring re tachycardia and patient refusing meds. 'I just want to be with my ()' Denies
SI or HI. Patient calm and receptive. Following commands and pleasant. Denies CP palps SOB. Full 12 point ROS reviewed and negative except as documented Exam: Vitals reviewed in chart GEN-NAD heart tachy irreg irreg no MRG lungs CTA B/L abd soft NT
ND pos BS LE no edema Neuro AAO x 2 following commands ms 5/5 speech soft and clear condom cath in place
Plan:
# Paroxysmal A fib with RVR-new
- echo 05/22-Small left ventricle with normal wall thickness, global hypokinesis most apparent in the apical and periapical segments, EF 45%. (down from 55-60% 05/2024)
- refusing meds, DC all meds
- transition to comfort care measures, eventual IP hospice
#HFmrEF-new
-not in AE yet
-DC all meds
-echo 05/22-Small left ventricle with normal wall thickness, global hypokinesis most apparent in the apical and periapical segments, EF 45%. (down from 55-60% 05/2024)
#Sepsis likely from PNA
- completed zosyn 12/30
# Acute Hypoxemic Respiratory Failure
# GI bleed
# Diarrhea
# Suicide Ideation/TME/ acute delirium
- per psych not a 302 candidate, not actively suicidal just refusing treatment
- dc all home meds, DC 1:1
#Sacral pressure stage 1 ulcer
#Acute noncardiogenic pulmonary edema
# Traumatic Rhabdomyolysis-resolved
# Transaminitis- shock liver
# Dementia with behavioral disturbance
# Depression
-DVT prophylaxis-Eliquis
Code status--Full code->DNR
Dispo-transition to comfort care
ACP
Patient consented to discuss, was alone d/w family, time spent explanation of advance directives, changes in health status, patient�s health care wishes if the patient becomes unable to make health decisions, goals of care, code status, and
prognosis- agreeable to comfort care with eventual transition to hospice, family in agreement- 16 minutes
Time spent coordinating care, review of plan of care with resident, personally reviewed previous records in EMR, med rec, labs, radiology, d/w nursing, family,hospice, psych total time documented is exclusive of any additional time listed that was
spent in advance care planning discussion -�52 minutes
Original Note:
Today's Communication/Plan
-
- Discharge to inpatient hospice.
Assessment / Plan
Assessment / Plan
After Dr. Katz Psychiatrist talked to patient and me as well, he expressed desire to go inpatient hospice. He will be moved to and I will initiate comfort care measures.
Suicidal ideations with no active plan:
- Patient is refusing all medications, he states that wants to be with his who 2 years ago, I told him the risks of not taking his medications and the complications of an untreated arrhythmia, to which he understands and still refuses
medication. Dr. Katz saw him and he also refused treatment as well with her. He told his sister in law that he wants to stop medications and as well. His sister in law is concerned that he wants to kill himself.
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
- Held quetiapine 50 mg, and Remeron 7.5, Effexor 150 mg.
- Reordered wrist restraints
- Hospice consulted and would like him to remain inpatient so that we can admit him here as he will be safer. Has nobody at home to take care of him. Patient is agreeable to this plan.
Paroxysmal Atrial Fibrillation with RVR
HFrEF:
- Stat ekg confirmed diagnosis of atrial fibrillation with RVR
- Chest Xray shows Mildly increased bronchovascular markings bilaterally which may indicate interstitial edema. Small left basilar opacity which may represent a combination of pleural fluid and/or airspace consolidation.
- Previously diagnosed with Afib after gallstone pancreatitis in 2013, converted to sinus rhythm and anticoagulant status is unknown
- Pt needs anticoagulation as Chadsvasc score is 2, so anticoagulation recc. Will start on Eliquis today at 9 pm while stopping subqu heparin.
- HR is 133 in the room today when i checked
- Continue to monitor vitals for instability.
- echo shows ejection fraction of 45% which is heart failure with moderately reduced ejection fraction, cards will monitor outpatient
- Patient is refusing all meds, does not want to take any more medications
Diarrhea with FOBT positive stool:
- ordered stool cultures
Sepsis with end organ damage due to possibly pneumonia:
- Criteria are met because on admission blood pressure of 89/48, WBC count of 27.9, a creatinine of 3.9 indicating kidney damage and a lactic acid of 4.7, decreased core body temperature
- Chest x-ray shows possible left basilar airspace opacities which may either be atelectasis or pneumonia
- blood cultures are negative, urine cultures negative
- Head CT is negative for any intracranial abnormalities
- Chest abdomen pelvis CT unremarkable
- Trend CMP, CBC, lactate, anion gap
- started patient on all his home meds
- PT reccs skilled rehab
- Upgraded patient to IDDSI 4 pur�ed diet as per speech's recommendation
- Procal is >25, will continue empiric zosyn, added panculture to recheck for infection, will check x ray today
- WBC is 9.2 from 16.7 yesterday trending down, LFT's still slightly elevated at AST- 68 and ALT-377 but overall trending down, Cr + electrolytes + lactic all in the normal range.
- iv fluids stopped
Prerenal acute kidney injury:
- Creatinine is 1.0 and normalized today
-Maintain urine output of more than 0.5/mL/KG
NON Anion gap hyperchloremic metabolic acidosis
- resolved
Rhabdomyolysis/hematuria:
- resolved
- recent Total creatinine kinase is 247 from 1049
- Differential is sepsis, prolonged immobilization, hypoperfusion, secondary to excessive acetaminophen use, electrolyte abnormalities, hypothermia, seizures
- Hold patient's NSAIDs
Transaminitis with normal bilirubin level due to ischemic hepatitis:
- previous AST is 68 and ALT is 377, both numbers more than double of yesterday, this is early transient phase of ischemic hepatitis, will observe if numbers plateau and/ or trend down
- Urine drug screen negative for acetaminophen toxicity
-Ordered ultrasound of the right upper quadrant to evaluate the liver, which was negative for causes like cholestasis, hepatitis, and fatty liver.
-fluid changed to normal saline
- hold patients nsaids
- hepatitis panels negative
Essential hypertension:
- discontinue due to patient opting for inpatient hospice.
BPH:
- discontinue due to patient opting for inpatient hospice.
Hyperlipidemia:
- discontinue due to patient opting for inpatient hospice.
Dementia:
- discontinue due to patient opting for inpatient hospice.
Depression:
- discontinue due to patient opting for inpatient hospice.
DVT prophylaxis is eliquis
Full code
Anticipated Discharge: Within 24 hours
Subjective/Interval History
-
Date of Service: May 25, 2025
Patient is refusing all medications, he states that wants to be with his who 2 years ago, I told him the risks of not taking his medications and the complications of an untreated arrhythmia, to which he understands and still refuses
medication. He also relayed this same plan to his brother and sister in law over the phone.
Objective Data
-
Labs:
Laboratory Results
05/25/25
08:03
WBC 14.5 H
Hgb 12.8 L
Hct 39.7
Plt Count 211 D
Sodium 138
Potassium 3.0 L
Chloride 107
Carbon Dioxide 26
BUN 22 H
Creatinine 0.8
Glucose 106 H
Calcium 7.7 L
Total Bilirubin 1.1
AST 37
ALT 152 H
Alkaline Phosphatase 104
Vital Signs:
Vital Signs
Temp Pulse Resp BP Pulse Ox
97.5 F 89 18 133/66 93
05/25/25 12:07 05/25/25 12:07 05/25/25 12:07 05/25/25 12:07 05/25/25 12:07
I&O
05/24/25 05/25/25 05/26/25
06:59 06:59 06:59
Intake Total 1120 / 1120 280 / 280
Output Total 900 / 900 100 / 100
Balance 220 / 220 180 / 180
Review of Systems
-
History Source: Patient
Constitutional: Denies Fever, Weight Loss, No Appetite, Fatigue or Sleep Disturbance
EENT: Denies Blurry Vision
Cardiac: Denies Chest Pain, Diaphoresis, Palpitations, Syncope or Orthopnea
Abdomen/GI: Denies Abdominal Pain, Nausea, Vomiting or Diarrhea
Musculoskeletal: Reports Joint Pain
Neuro: Denies Dizzy, Headache, Weakness or Numbness
Physical Exam
-
General: Well Developed
HEENT: Other (Dry oral mucous membrane)
Respiratory: Crackles (heard bilaterally both lungs)
Cardiac: Regular Rhythm and S1/S2
GI: Soft, Nondistended and Normal Bowel Sounds
Genito-urinary: Negative No Costovertebral Tender
Musculoskeletal: No Clubbing, No Cyanosis and No Edema
Skin: Warm, Dry and Other (Healed laceration of great toe on left foot)
Neuro: AO x 3
Psych: Confused, Agitated and Suicidal
Data Reviewed
-
Labs: Labs Reviewed by me and Discussed with Physician
--- NOTE | 2025-05-25 14:45 | W.PN.UPDATE ---
Update Note
Progress Note Update
spoke to patient who is agreeable to being on hospice w transfer to [facility]. he is not suicidal he just does not want further treatment. informed his sister in law and brother.
[2025-05-25 15:34] VITALS: BP 104/79
--- NOTE | 2025-05-25 15:59 | PTCARENOTE ---
Report provided to [address] [place] [address].
[2025-05-25] MEDS: MORPHINE SULFATE 2 MG IV (16:51)
[2025-05-25] MEDS: MORPHINE SULFATE 1 MG IV (19:43)
[2025-05-25] MEDS: ATIVAN 1 MG IV (19:44)
[2025-05-26 07:20] VITALS: BP 153/80
--- NOTE | 2025-05-26 08:35 | W.PN.HOSP.TC ---
Today's Communication/Plan
-
hospice consult for acceptance
Assessment / Plan
Assessment / Plan
79yo M with PMHX of HTN, HLD, Parkinsons, Dementia came with AMS when he was found laying on the floor unable to stood up. Managed for pneumonia and sepsis on admission, ALIREZA, mild rhabdomyolysis as well as Afib with RVR. Also found new HFmrEF and
hypoxia most likely 2/2 pneumonia. After initiation of ELiquis developed hemorrhoidal bleed. s/p cardioversion on 05/25/25. On 05/25/25 patient expressed wishes to stop medical treatment and proceed with hospice. Due to PMHx of dementia - psychiatry
was consulted and also discussed this choice with family. They were in agreemnt so comfort care was initiated. On 05/26/25 this was again discussed with brother over the phone in details. He agreed that family would like to honor wishes of the
patient and stop all medical management and any diagnostic intervention and provide only symptomatic relief from anxiety, pain, dyspnea. CM consult to hospice placed awaiting acceptance. Brother confirmed that he is medical POA
A/P:
#New Afib with RVR
#HFmrEF, unknown chronicity
#Sepsis, most likely 2/2 pneumonia
#Acute hypoxic respiratory failure
#Lower GIB
#DIarrhea
#Sacral pressure ulcer stage 1
#Acute non-cardiogenic pulmonary edema
#Traumatic rhabdomyolysis
#Elevated aminotransferases most likely 2/2 ischemic hepatitis and rhabdo
#Dementia with behavioral disturbances
#Parkinsons
COmfort care
Hospice consult to CM
DVT not indicated
DNR/DNI
I have spent at least 57min reviewing chart, test reuslts, communication with consultants, family and providing direct patient care
Anticipated Discharge: Within 24 hours
Subjective/Interval History
-
Date of Service: May 26, 2025
Objective Data
-
Vital Signs:
Vital Signs
Temp Pulse Resp BP Pulse Ox
97.7 F 76 16 104/79 95
05/25/25 15:34 05/25/25 15:34 05/25/25 15:34 05/25/25 15:34 05/25/25 15:34
I&O
05/25/25 05/26/25 05/27/25
06:59 06:59 05:59
Intake Total 280 / 280 120 / 120
Output Total 100 / 100 180 / 180
Balance 180 / 180 -60 / -60
Review of Systems
-
History Source: Patient
All other systems: Reviewed and negative
Physical Exam
-
General: Comfortable
Neuro: Awake and Alert
Psych: Calm
[2025-05-26] MEDS: MORPHINE SULFATE 1 MG IV (13:09)
--- NOTE | 2025-05-26 16:28 | CM ---
F/U: LUIS A Rueda called [facility] RN to see the status of Hospice, told that they can probably make a case for inpatient, but do not have a RN at the moment so will let LUIS A Rueda know when an RN can admit the patient. PLAN: Inpatient Hospice.
[2025-05-26 19:36] VITALS: BP 91/58
[2025-05-27] MEDS: MORPHINE SULFATE 1 MG IV ×3 (03:14→14:27)
[2025-05-27 07:13] VITALS: BP 93/58
[2025-05-27] MEDS: ATIVAN 1 MG PO ×2 (10:18→21:28)
--- NOTE | 2025-05-27 11:13 | W.PN.HOSP.TC ---
Today's Communication/Plan
-
Patient confirmed hospice approach
Received message from hospice services that there is noone to admit patient today. Continue comfort care
Assessment / Plan
Assessment / Plan
79yo M with PMHX of HTN, HLD, Parkinsons, Dementia came with AMS when he was found laying on the floor unable to stood up. Managed for pneumonia and sepsis on admission, ALIREZA, mild rhabdomyolysis as well as Afib with RVR. Also found new HFmrEF and
hypoxia most likely 2/2 pneumonia. After initiation of ELiquis developed hemorrhoidal bleed. s/p cardioversion on 05/25/25. On 05/25/25 patient expressed wishes to stop medical treatment and proceed with hospice. Due to PMHx of dementia - psychiatry
was consulted and also discussed this choice with family. They were in agreemnt so comfort care was initiated. On 05/26/25 this was again discussed with brother over the phone in details. He agreed that family would like to honor wishes of the
patient and stop all medical management and any diagnostic intervention and provide only symptomatic relief from anxiety, pain, dyspnea. CM consult to hospice placed awaiting acceptance. Brother confirmed that he is medical POA
A/P:
#New Afib with RVR
#HFmrEF, unknown chronicity
#Sepsis, most likely 2/2 pneumonia
#Acute hypoxic respiratory failure
#Lower GIB
#DIarrhea
#Sacral pressure ulcer stage 1
#Acute non-cardiogenic pulmonary edema
#Traumatic rhabdomyolysis
#Elevated aminotransferases most likely 2/2 ischemic hepatitis and rhabdo
#Dementia with behavioral disturbances
#Parkinsons
COmfort care
Hospice consult to CM
DVT not indicated
DNR/DNI
I have spent at least 57min reviewing chart, test reuslts, communication with consultants, family and providing direct patient care
Anticipated Discharge: > 48 hours
Subjective/Interval History
-
Date of Service: May 27, 2025
Objective Data
-
Vital Signs:
Vital Signs
Temp Pulse Resp BP Pulse Ox
98 F 122 20 93/58 96
05/27/25 07:13 05/27/25 07:13 05/27/25 07:13 05/27/25 07:13 05/27/25 07:13
I&O
05/26/25 05/27/25 05/28/25
06:59 05:59 06:59
Intake Total 120 / 120 90 / 90
Output Total 180 / 180 100 / 100
Balance -60 / -60 -10 / -10
Review of Systems
-
History Source: Patient
All other systems: Reviewed and negative
Physical Exam
-
General: No Apparent Distress and Comfortable
Neuro: Awake, Alert and Oriented
Psych: Calm
--- NOTE | 2025-05-27 14:57 | PTCARENOTE ---
pt in room begging to be put to rest today. nurse educated and relaxed patient. multiple prn doses given and prn PO ativan. #21 short cc placed after bed bath due to pt incontinence event with diarrhea and urine all over bed. calazine cream placed
on sacrum. MASD spreads from buttock to sacrum. red blanchable. pt also has ecchymotic bruise on bottom from fall at home. b/l heel foams remain intact. bed alarm remains in place due to patient trying to get out of bed and being a fall risk
[2025-05-27 19:10] VITALS: BP 132/74
[2025-05-28] MEDS: ATIVAN 1 MG IV ×3 (07:54→20:18)
[2025-05-28 08:29] VITALS: BP 134/54
--- NOTE | 2025-05-28 13:47 | W.PN.HOSP.TC ---
Addendum entered and electronically signed by Morena Alves MD 05/28/25 15:04:
I saw and evaluated the patient independently. I reviewed and discussed the resident�s note and agree with findings and plan as documented by Dr. Warren.
GENERAL: well developed, well nourished, male in no apparent distress (just medicated with IV ativan)--so sleepy
HEENT: NC/AT--no O2 requirements
HEART: regular rate and rhythm, +S1, +S2
LUNGS : clear to auscultation bilaterally
ABDOM: soft, nontender, nondistended, + bowel sounds
EXT: no cyanosis, clubbing-- trace edema bilaterally
NEUROLOGIC: sleepy--not talkative
Desire for no further treatment--pt refusing meds, wants no further treatment--wants to be with his who 2 years ago--apprec psych, NOT suicidal, actually diagnosed with Toxic metabolic encephalopathy superimposed on dementia and a possible
diagnosis of PTSD--all meds stopped--await eval by hospice--not sure he qualifies for inpt
Paroxysmal Atrial Fibrillation with RVR/HFrEF--no response with meds--apprec cards, s/p cardioversion--Eliquis was started but now that on comfort measures--meds stopped
Diarrhea with FOBT positive stool--pt dclines further workup
Sepsis with end organ damage due to possibly pneumonia--cultures neg--chest/abdomen/pelvis CT scan neg--diet per speech--zosyn stopped once comfort measures instituted
Prerenal acute kidney injury-- Creatinine normalized after IVF
NON Anion gap hyperchloremic metabolic acidosis- resolved
Rhabdomyolysis/hematuria- resolved
Transaminitis with normal bilirubin level due to ischemic hepatitis--improved--US of abdomen negative--hepatitis panels negative
Essential hypertension- discontinued meds
BPH - discontinued meds
Hyperlipidemia - discontinued meds
Dementia- discontinued meds
Depression- discontinued meds
DVT prophylaxis
Code status--DNR/DNI
Original Note:
Today's Communication/Plan
-
- f/u with hospice nurse about outpatient hospice facilities
Assessment / Plan
Assessment / Plan
He will be moved to and comfort care measures have been initiated. Hospice nurse is gong to call brother ( who is power of litigation attorney associate) and discuss outpatient hospice facilities as patient may not qualify for hospice care inpatient.
Suicidal ideations with no active plan:
- Patient is refusing all medications, he states that wants to be with his who 2 years ago, I told him the risks of not taking his medications and the complications of an untreated arrhythmia, to which he understands and still refuses
medication. Dr. Katz saw him and he also refused treatment as well with her. He told his sister in law that he wants to stop medications and as well. His sister in law is concerned that he wants to kill himself.
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
- stopped quetiapine 50 mg, and Remeron 7.5, Effexor 150 mg as patient has been transitioned to comfort care
- Reordered wrist restraints
Paroxysmal Atrial Fibrillation with RVR
HFrEF:
- Stat ekg confirmed diagnosis of atrial fibrillation with RVR
- Chest Xray shows Mildly increased bronchovascular markings bilaterally which may indicate interstitial edema. Small left basilar opacity which may represent a combination of pleural fluid and/or airspace consolidation.
- Previously diagnosed with Afib after gallstone pancreatitis in 2012, converted to sinus rhythm and anticoagulant status is unknown
- Pt needs anticoagulation as Chadsvasc score is 2, so anticoagulation recc. Will start on Eliquis today at 9 pm while stopping subqu heparin.
- HR is 133 in the room today when i checked ( as of 05/25/25)
- Continue to monitor vitals for instability.
- echo shows ejection fraction of 45% which is heart failure with moderately reduced ejection fraction, cards will monitor outpatient
- Patient is refusing all meds, does not want to take any more medications
Diarrhea with FOBT positive stool:
- ordered stool cultures
Sepsis with end organ damage due to possibly pneumonia:
- Criteria are met because on admission blood pressure of 89/48, WBC count of 27.9, a creatinine of 3.9 indicating kidney damage and a lactic acid of 4.7, decreased core body temperature
- Chest x-ray shows possible left basilar airspace opacities which may either be atelectasis or pneumonia
- blood cultures are negative, urine cultures negative
- Head CT is negative for any intracranial abnormalities
- Chest abdomen pelvis CT unremarkable
- Trend CMP, CBC, lactate, anion gap
- started patient on all his home meds
- PT reccs skilled rehab
- Upgraded patient to IDDSI 4 pur�ed diet as per speech's recommendation
- Procal is >25, will continue empiric zosyn, added panculture to recheck for infection, will check x ray today
- WBC is 9.2 from 16.7 yesterday trending down, LFT's still slightly elevated at AST- 68 and ALT-377 but overall trending down, Cr + electrolytes + lactic all in the normal range ( as of 05/25/25)
- iv fluids stopped
Prerenal acute kidney injury:
- Creatinine is 1.0 and normalized today
-Maintain urine output of more than 0.5/mL/KG
NON Anion gap hyperchloremic metabolic acidosis
- resolved
Rhabdomyolysis/hematuria:
- resolved
Transaminitis with normal bilirubin level due to ischemic hepatitis:
- previous AST is 68 and ALT is 377, both numbers more than double of yesterday, this is early transient phase of ischemic hepatitis, will observe if numbers plateau and/ or trend down
- Urine drug screen negative for acetaminophen toxicity
-Ordered ultrasound of the right upper quadrant to evaluate the liver, which was negative for causes like cholestasis, hepatitis, and fatty liver.
-fluid changed to normal saline
- hold patients nsaids
- hepatitis panels negative
Essential hypertension:
- discontinue due to patient opting for hospice.
BPH:
- discontinue due to patient opting for hospice.
Hyperlipidemia:
- discontinue due to patient opting for hospice.
Dementia:
- discontinue due to patient opting for hospice.
Depression:
- discontinue due to patient opting for hospice.
DVT prophylaxis is eliquis
Full code
Anticipated Discharge: Within 24 hours
Subjective/Interval History
-
Date of Service: May 28, 2025
Patient is on comfort care measures and has no acute medical complaints.
No overnight events.
Objective Data
-
Vital Signs:
Vital Signs
Temp Pulse Resp BP Pulse Ox
99.3 F 90 18 134/54 78
05/28/25 08:29 05/28/25 08:29 05/28/25 08:29 05/28/25 08:29 05/28/25 10:00
I&O
05/27/25 05/28/25 05/29/25
05:59 06:59 06:59
Intake Total 90 / 90 465 / 465 0 / 0
Output Total 100 / 100 450 / 450
Balance -10 / -10 15 / 15 0 / 0
Review of Systems
-
History Source: Patient
All other systems: Reviewed and negative
Physical Exam
-
General: No Apparent Distress and Comfortable
Respiratory: Clear to Auscultation
Cardiac: Regular Rhythm and S1/S2
GI: Soft, Nontender, Nondistended and Normal Bowel Sounds
Musculoskeletal: No Clubbing, No Cyanosis and No Edema
Skin: Warm and Dry
Neuro: Awake and Alert
Psych: Calm
--- NOTE | 2025-05-28 17:16 | CM ---
Patient seen at bedside on [address]. Patient seen with physicians. Pending hospice discussion with [facility] hosp[facility] and family choice CM will continue to follow for discharge planning needs.
Plan; Placement with hospice vs SNF pending family choice
[2025-05-28 19:09] VITALS: BP 153/82
[2025-05-29] MEDS: ATIVAN 1 MG IV ×2 (03:47→08:30)
[2025-05-29 07:00] VITALS: BP 119/58
[2025-05-29] MEDS: NSS (PRESERVATIVE FREE) 0.5 ML IV (08:29)
[2025-05-29] MEDS: VALIUM INJECTION 5 MG IV (09:49)
--- NOTE | 2025-05-29 10:00 | HOSPNOTE ---
Saw patient who is extremely anxious and increased respirations requiring IV medications for anxiety and morphine for increased respirations. I spoke with Attending and she is in agreement with inpatient hospice. Admissions was called to prepare
hospice chart.
[2025-05-29] MEDS: MORPHINE SULFATE 1 MG IV (11:08)
--- NOTE | 2025-05-29 14:20 | W.PN.HOSP.TC ---
Addendum entered and electronically signed by Morena Alves MD 05/29/25 14:50:
I saw and evaluated the patient independently. I reviewed and discussed the resident�s note and agree with findings and plan as documented by Dr. Warren.
GENERAL: well developed, well nourished, male in no apparent distress (just medicated with IV valium)--so sleepy
HEENT: NC/AT--no O2 requirements
HEART: regular rate and rhythm, +S1, +S2, tachycardic
LUNGS : clear to auscultation bilaterally
ABDOM: soft, nontender, nondistended, + bowel sounds
EXT: no cyanosis, clubbing-- trace edema bilaterally
NEUROLOGIC: sleepy--not talkative
Desire for no further treatment--pt refusing meds, wants no further treatment--wants to be with his who 2 years ago--apprec psych, NOT suicidal, actually diagnosed with Toxic metabolic encephalopathy superimposed on dementia and a possible
diagnosis of PTSD--all meds stopped--await eval by hospice--transitioning to in hospice, brother has signed consents
Paroxysmal Atrial Fibrillation with RVR/HFrEF--no response with meds--apprec cards, s/p cardioversion--Eliquis was started but now that on comfort measures--meds stopped
Diarrhea with FOBT positive stool--pt dclines further workup
Sepsis with end organ damage due to possibly pneumonia--cultures neg--chest/abdomen/pelvis CT scan neg--diet per speech--zosyn stopped once comfort measures instituted
Prerenal acute kidney injury-- Creatinine normalized after IVF
NON Anion gap hyperchloremic metabolic acidosis- resolved
Rhabdomyolysis/hematuria- resolved
Transaminitis with normal bilirubin level due to ischemic hepatitis--improved--US of abdomen negative--hepatitis panels negative
Essential hypertension- discontinued meds
BPH - discontinued meds
Hyperlipidemia - discontinued meds
Dementia- discontinued meds
Depression- discontinued meds
DVT prophylaxis
Code status--DNR/DNI
Original Note:
Today's Communication/Plan
-
- transition patient to inpatient hospice
Assessment / Plan
Assessment / Plan
Patient is transitioned to inpatient hospice care after consent forms had been signed (05/29/25)
Suicidal ideations with no active plan:
- Patient is refusing all medications, he states that wants to be with his who 2 years ago, I told him the risks of not taking his medications and the complications of an untreated arrhythmia, to which he understands and still refuses
medication. Dr. Katz saw him and he also refused treatment as well with her. He told his sister in law that he wants to stop medications and as well. His sister in law is concerned that he wants to kill himself.
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
- stopped quetiapine 50 mg, and Remeron 7.5, Effexor 150 mg as patient has been transitioned to comfort care
Paroxysmal Atrial Fibrillation with RVR
HFrEF:
- All meds dc'd
Diarrhea with FOBT positive stool:
- ordered stool cultures
Sepsis with end organ damage due to possibly pneumonia:
- resolved
Prerenal acute kidney injury:
- resolved
NON Anion gap hyperchloremic metabolic acidosis
- resolved
Rhabdomyolysis/hematuria:
- resolved
Transaminitis with normal bilirubin level due to ischemic hepatitis:
- resolved
Essential hypertension:
- discontinue due to patient opting for hospice.
BPH:
- discontinue due to patient opting for hospice.
Hyperlipidemia:
- discontinue due to patient opting for hospice.
Dementia:
- discontinue due to patient opting for hospice.
Depression:
- discontinue due to patient opting for hospice.
DVT prophylaxis is eliquis
Full code
Anticipated Discharge: Today
Subjective/Interval History
-
Date of Service: May 29, 2025
Patient is on comfort care measures and keeps stating to me that he does not ' feel well'. He is aware of his situation and hospice and knows that she does not want any life-saving measures or medications.
No overnight events.
Objective Data
-
Vital Signs:
Vital Signs
Temp Pulse Resp BP Pulse Ox
98.9 F 94 16 119/58 90
05/29/25 07:00 05/29/25 07:00 05/29/25 07:00 05/29/25 07:00 05/29/25 10:59
I&O
05/28/25 05/29/25 05/30/25
06:59 06:59 06:59
Intake Total 465 / 465 240 / 240
Output Total 450 / 450
Balance 15 / 15 240 / 240
Review of Systems
-
History Source: Patient
All other systems: Reviewed and negative
Physical Exam
-
General: No Apparent Distress and Comfortable
Respiratory: Clear to Auscultation
Cardiac: Regular Rhythm and S1/S2
GI: Soft, Nontender, Nondistended and Normal Bowel Sounds
Musculoskeletal: No Clubbing, No Cyanosis and No Edema
Skin: Warm and Dry
Neuro: Awake and Alert
Psych: Calm
--- NOTE | 2025-05-29 14:26 | W.DCSUMMARY ---
Addendum entered and electronically signed by Morena Alves MD 05/29/25 16:19:
Read, reviewed, and agree. See same day progress note for additional details. Time spent coordinating care, DC planning, review of DC plan of care with resident, transition of care, review of records in EMR, med rec, consults, notes, d/w
consultants, nursing, family, and CM = 38 minutes
Original Note:
Discharge Summary
Discharge Data
Date of Admission: 05/18/25
Date of Discharge: 05/29/25
-
Pending Results: No
Hospital Course
Discharging Physician : Dr. Morena Alves and Dr. Lincoln Warren
Disposition : Inpatient Hospice
Primary care physician : Unknown
Principal Discharge diagnosis : Sepsis with end organ damage (resolved), paroxysmal atrial fibrillation with RVR, prerenal acute injury, non anion gap hyperkalemic metabolic acidosis, traumatic rhabdomyolysis/hematuria, transaminitis with normal
bilirubin levels
Chronic Discharge diagnosis : essential hypertension, BPH, hyperlipidemia, dementia, depression
Hospital Course : 79-year-old male full code with a past medical history of hypertension, hyperlipidemia, Parkinson's, dementia brought to the ER by EMS for evaluation of altered mental status.
Problem #1:
Sepsis with end organ damage (resolved)
Prerenal acute kidney injury
Non-anion gap hyperchloremic metabolic acidosis
Transaminitis with normal bilirubin level due to ischemic hepatitis
Rhabdomyolysis
- On admission criteria for sepsis with endorgan damages met with a blood pressure of 89/48, WBC count of 27.9, creatinine 3.9, lactic acid of 4.7, and decreased core body temperature, bicarb 10 on admission. Blood cultures and urine cultures are
negative. Chest x-ray shows possible left basilar airspace opacities which may either be atelectasis or pneumonia. Head CT is negative for any intracranial abnormalities. Chest abdomen pelvis CT is unremarkable. Patient was started on IV fluids
(initially sterile saline with 150 mEq of bicarb and then later transition to regular normal saline), empiric Zosyn and vancomycin. Sepsis eventually resolved with normalized blood pressures, normalized WBC count, normalized lactic acid, normalized
temperature, normalized creatinine level, normalized LFT counts, and normalized creatinine kinase levels, normalized bicarb levels. Procalcitonin was more than 25, panculture was done and was negative. PT OT recommended skilled rehab. IV fluids
and antibiotics are discontinued as patient has opted for hospice and has met the criteria for inpatient hospice.
Problem #2:
Suicidal ideations no active plan
Depression
Possible dementia
Agitation
- During the course of hospital stay, patient was agitated and expressed feelings of wanting to be with his with 2 years ago. Psychiatry was then consulted and diagnosed him with toxic metabolic encephalopathy superimposed on
dementia and a possible diagnosis of PTSD. Reduced his home medications to dosages of quetiapine 50, Remeron 7.5 and Effexor 150. Wrist restraints were ordered. All medications discontinued as patient has opted for hospice and has met the
criteria for inpatient hospice.
Problem #3:
Paroxysmal atrial fibrillation with RVR
Heart failure with moderately reduced ejection fraction
- Confirmed on EKG. Previously diagnosed with A-fib after gallstone pancreatitis in 2012, converted to sinus rhythm and anticoagulant status unknown. Cardiology was consulted and patient was placed on p.o. diltiazem extended release 120 mg p.o.
every 12 and 50 mg metoprolol as needed every 6 hourly. An echocardiogram showed an ejection fraction of 45%. Patient was then cardioverted which restored his rhythm back to normal sinus rhythm. Patient's last recorded heart rate before being
started on comfort care and inevitably hospice is 133. Patient has opted for hospice care, does not want to take any more medications to control his arrhythmia Meets criteria for inpatient hospice.
Problem #4: Essential hypertension:
- Patient's blood pressure is 119/58. Initially his lisinopril was held due to hypotension from sepsis however as he is opted for inpatient hospice care, blood pressure medications were discontinued.
Problem #5: Hyperlipidemia
- Simvastatin discontinued as patient has opted for inpatient hospice care
Problem #6: Diarrhea with FOBT positive stool
- Patient was just started on Eliquis before this episode of diarrhea and I suspect this is the reason for the positive blood in stool. No clinical correlating symptoms of an acute bleed. He stool cultures came back negative.
Important imaging findings :
Head CT on 05/14/2025
IMPRESSION:
No acute intracranial abnormality.
Chest/abdomen/pelvis CT on 05/18/2025
IMPRESSION:
Markedly limited evaluation as a result of numerous factors, as detailed above.
Large hiatal hernia/intrathoracic stomach.
Grossly intact solid organs of the abdomen.
Markedly limited evaluation of intestinal tract by all of the above findings with descending colon and sigmoid diverticulosis. No intestinal obstruction or free air. Acute infectious process of the intestinal tract cannot be excluded on the basis of
this study.
Prior cholecystectomy.
Mild partial L1 vertebral compression fracture, stable. Extensive metal hardware throughout the lower thoracic and lumbar spine as well as the proximal left femur.
Abdominal ultrasound on 05/19/2025
-FINDINGS and IMPRESSION:
The gallbladder is surgically absent. Common bile duct measures 0.7 cm likely within the limits of normal in light of prior cholecystectomy. No findings to suggest choledocholithiasis or intrahepatic biliary tract dilatation.
Pancreas significantly obscured, most likely by overlying bowel gas.
The right kidney is unremarkable.
Normal directional blood flow is seen in the hepatic and portal veins.
Please see recent CT Abdomen and pelvis report of preceding day.
Chest x-ray on 05/24/2025
IMPRESSION:
Improving left basilar airspace disease.
Procedure findings :
Cardioversion
Procedure Report:
Date of Procedure: 05/25/25
Procedure: Cardioversion
Indication: Symptomatic atrial fibrillation
Performing Physician: Tyron Jones MD
Technique: The patient was brought to the holding area. Signed informed consent was obtained. A time out was called and performed. The patient was anesthetized by the anesthesia service. Anticoagulation status was reviewed and appropriate. R2 pads
were placed anteriorly and posteriorly. After LSISET revealed no TERESE thrombus, a 200 J synchronized biphasic shock restored normal sinus rhythm without significant bradycardia. There were no complications.
Conclusion: Uncomplicated cardioversion from atrial fibrillation to sinus rhythm.
Recommendation: Routine post cardioversion care. Continue termite inspector anticoagulation.
Discharge Plan
-
Patient Disposition: Hospice - Inpatient [facility]
Discharge Orders:
Discharge Patient (As Directed); Ordered 05/29/25
Ordered By: Lincoln Warren
Discharge Date and Time
Discharge Date/Time: 05/29/25 12:47
Print Language: SPANISH
--- NOTE | 2025-05-29 15:28 | CM ---
Patient transitioned to [facility] hospice. Patient to remain at on [facility] hospice with [facility] hospice. CM will continue to follow for discharge planning needs.
Plan; [facility] hospice.
== END 2025-05-29 12:47 | disposition hospice, inpatient (51) | DRG 871 ==
LOC: 2 NORTH 19:02
PROVIDERS: Family Medicine; Internal Medicine Cardiovascular Disease; Nurse Practitioner Family; Registered Nurse; ADMITTING PHYSICIAN Internal Medicine; EMERGENCY PHYSICIAN Emergency Medicine; OTHER PHYSICIAN Internal Medicine Cardiovascular Disease; OTHER PHYSICIAN Psychiatry & Neurology Psychiatry
PROC: 5A2204Z Restoration of Cardiac Rhythm, Single (ICD-10-PCS; 2025-05-25)
DX: A41.9 Sepsis, unspecified organism (principal); G92.8 Other toxic encephalopathy; R65.21 Severe sepsis with septic shock; K72.00 Acute and subacute hepatic failure without coma; J18.9 Pneumonia, unspecified organism; J96.01 Acute respiratory failure with hypoxia; E87.29 Other acidosis; N17.9 Acute kidney failure, unspecified; F02.83 Dementia in other diseases classified elsewhere, unspecified severity, with mood disturbance; I50.20 Unspecified systolic (congestive) heart failure; J98.11 Atelectasis; R45.851 Suicidal ideations; F05 Delirium due to known physiological condition; E86.0 Dehydration; N40.0 Benign prostatic hyperplasia without lower urinary tract symptoms; I48.0 Paroxysmal atrial fibrillation; E78.00 Pure hypercholesterolemia, unspecified; T79.6XXA Traumatic ischemia of muscle, initial encounter; X58.XXXA Exposure to other specified factors, initial encounter; R31.9 Hematuria, unspecified; L89.151 Pressure ulcer of sacral region, stage 1; E87.8 Other disorders of electrolyte and fluid balance, not elsewhere classified; F32.A Depression, unspecified; G20.A1 Parkinson's disease without dyskinesia, without mention of fluctuations; R19.7 Diarrhea, unspecified; K64.9 Unspecified hemorrhoids; I11.0 Hypertensive heart disease with heart failure; K44.9 Diaphragmatic hernia without obstruction or gangrene; E87.6 Hypokalemia; Z66 Do not resuscitate; Z11.52 Encounter for screening for COVID-19; Z51.5 Encounter for palliative care; Z79.899 Other long term (current) drug therapy; Z79.01 Long term (current) use of anticoagulants; Z87.891 Personal history of nicotine dependence; Z91.51 Personal history of suicidal behavior
CPT/HCPCS: 36600; 51701; 51798; 70450; 71045; 71046; 71250; 72125; 74176; 76705; 80053; 80202; 80306; 81003; 81015; 82077; 82550; 82553; 82805; 82962; 83605; 83735; 83880; 84100; 84145; 84484; 85014; 85018; 85025; 85027; 85610; 85730; 86704; 86705; 86706; 86708; 86709; 86803; 86850; 86900; 86901; 87040; 87045; 87046; 87070; 87086; 87324; 87340; 87427; 87449; 87502; 87811; 92526; 92610; 93005; 93306; 96361; 96365; 96366; 96375; 97163; 97166; 97530; 97535; 99291; J7030; Q9950

== ENCOUNTER 2025-05-29 12:48 | Inpatient (IN) | payer OTHER, SELFPAY ==
[2025-05-29] MEDS: MORPHINE SULFATE 2 MG IV ×2 (13:06→14:51)
[2025-05-29 14:17] VITALS: BP 119/58
[2025-05-29] MEDS: ATIVAN 2 MG IV (14:26)
--- NOTE | 2025-05-29 15:21 | HPS.HSE ---
Addendum entered and electronically signed by Morena Alves MD 05/29/25 16:22:
I personally performed a history and physical exam of the patient and discussed management with the resident. I reviewed the resident's note and agree with the documented findings and plan of care HPI/CC.
GENERAL: well developed, well nourished, male in no apparent distress (just medicated with IV valium)--so sleepy
HEENT: NC/AT--no O2 requirements
HEART: regular rate and rhythm, +S1, +S2, tachycardic
LUNGS : clear to auscultation bilaterally
ABDOM: soft, nontender, nondistended, + bowel sounds
EXT: no cyanosis, clubbing-- trace edema bilaterally
NEUROLOGIC: sleepy--not talkative
Desire for no further treatment--pt refusing meds, wants no further treatment--wants to be with his who 2 years ago--apprec psych, NOT suicidal, actually diagnosed with Toxic metabolic encephalopathy superimposed on dementia and a possible
diagnosis of PTSD--all meds stopped--await eval by hospice--transitioning to in hospice, brother has signed consents
other medical issues:
Paroxysmal Atrial Fibrillation with RVR/HFrEF
Diarrhea with FOBT positive stool
Sepsis with end organ damage due to possibly pneumonia
Prerenal acute kidney injury
NON Anion gap hyperchloremic metabolic acidosis
Rhabdomyolysis/hematuria
Transaminitis with normal bilirubin level due to ischemic hepatitis
Essential hypertension
BPH
Hyperlipidemia
Dementia
Depression
DVT prophylaxis
Code status--DNR/DNI
Original Note:
Family Physician
-
Family Physician: NO INTERVIEW UNKNOWN
Chief Complaint
-
Resolved Sepsis with end organ damage and new onset atrial fibrillation with RVR
History of Present Illness
on 05/18/2025, 79-year-old male full code with a past medical history of hypertension, hyperlipidemia, Parkinson's, dementia brought to the ER by EMS for evaluation of altered mental status. Based on labs and clinical picture, he was diagnosed with
sepsis with end organ damage. Eventually over the course of his hospital stay, sepsis resolved. Normal WBC, normal temp, normal respiratory rate, normal lactate, normal CPK, normal LFTs, and normal creatinine over course of his hospital stay.
Psychiatry consulted for his underlying agitation to assess for mental competence and he was found to be mentally competent on her second visit. She adjusted his home psychiatry medications. On 05/20/25 found to be in A-fib with RVR, cards was
consulted, eventually he was on diltiazam 120 mg PO BID, Toprol 50 XL and Eliquis with heart rate still uncontrolled. He was then cardioverted and he returned to sinus rhythm. on 05/25/2025 he refused all medications and understood the
consequences of his choices. Was then placed on comfort care meds. He will then be transitioned to inpatient hospice after he met criteria today (05/29/2025).
Medical History
Past Medical History
Past Medical History: Reports Other (essential hypertension, BPH, hyperlipidemia, dementia, depression)
Past Surgical History: Reports Other (Cholecystectomy, orthopedic surgery, tonsillectomy)
Social History
Tobacco: Non-smoker
Alcohol: None
Drug: None
Personal:
Living: Alone
Employment: Retired
Family History
Family History: Not pertinent
Allergies / Home Medications
Allergies reflects when Allergies were last updated in [employer].
Home Medications with original date entered in [employer]
Allergy/Medication List:
Allergies
Allergy/AdvReac Type Severity Reaction Status Date / Time
No Known Allergies Allergy Verified 12/21/24 22:59
Home Medications
venlafaxine 75 mg tablet 225 mg PO DAILY Depression 09/07/08
lisinopril 10 mg tablet 10 mg PO DAILY Blood Pressure 02/13/22
simvastatin 20 mg tablet 20 mg PO HS High Cholesterol 02/13/22
omeprazole 20 mg capsule,delayed release 20 mg PO DAILY gerd 06/13/24
quetiapine 50 mg tablet 100 mg PO HS Depression 06/13/24
tamsulosin 0.4 mg capsule 0.4 mg PO QPM BPH 06/13/24
acetaminophen 500 mg tablet 1,000 mg PO BID mild pain 12/21/24
amlodipine 2.5 mg tablet 5 mg PO HS Blood Pressure 12/21/24
finasteride 5 mg tablet 5 mg PO DAILY prostate 12/21/24
mirtazapine 15 mg tablet (Remeron) 15 mg PO HS Sleep 12/21/24
gabapentin 300 mg capsule 300 mg PO TID Nerve Pain 05/18/25
lidocaine 4 % topical patch 1 patch topical DAILY left foot 05/18/25
Review of Systems
-
History Source: Patient
A 12 point ROS was completed and negative except as noted: Yes
Cardiac: Reports Palpitations
Physical Exam
Vital Signs
Vital Signs
Temp Pulse Resp BP Pulse Ox
98.9 F 94 16 119/58 90
05/29/25 14:17 05/29/25 14:17 05/29/25 14:17 05/29/25 14:17 05/29/25 14:21
Physical Exam
General: Well Developed
Respiratory: Clear
Cardiac: S1/S2 and Regular Rhythm
GI: Soft, Non Tender, Non Distended and Normal Bowel Sounds
Musculoskeletal: No Clubbing, No Cyanosis and No Edema
Skin: Warm and Dry
Neuro: Awake and Alert
Psych: Anxious
Impression/Plan
-
Problem #1:
Sepsis with end organ damage (resolved)
Prerenal acute kidney injury
Non-anion gap hyperchloremic metabolic acidosis
Transaminitis with normal bilirubin level due to ischemic hepatitis
Rhabdomyolysis
- On admission criteria for sepsis with endorgan damages met with a blood pressure of 89/48, WBC count of 27.9, creatinine 3.9, lactic acid of 4.7, and decreased core body temperature, bicarb 10 on admission. Blood cultures and urine cultures are
negative. Chest x-ray shows possible left basilar airspace opacities which may either be atelectasis or pneumonia. Head CT is negative for any intracranial abnormalities. Chest abdomen pelvis CT is unremarkable. Patient was started on IV fluids
(initially sterile saline with 150 mEq of bicarb and then later transition to regular normal saline), empiric Zosyn and vancomycin. Sepsis eventually resolved with normalized blood pressures, normalized WBC count, normalized lactic acid, normalized
temperature, normalized creatinine level, normalized LFT counts, and normalized creatinine kinase levels, normalized bicarb levels. Procalcitonin was more than 25, panculture was done and was negative. PT OT recommended skilled rehab. IV fluids
and antibiotics are discontinued as patient has opted for hospice and has met the criteria for inpatient hospice.
Problem #2:
Suicidal ideations no active plan
Depression
Possible dementia
Agitation
- During the course of hospital stay, patient was agitated and expressed feelings of wanting to be with his with 2 years ago. Psychiatry was then consulted and diagnosed him with toxic metabolic encephalopathy superimposed on
dementia and a possible diagnosis of PTSD. Reduced his home medications to dosages of quetiapine 50, Remeron 7.5 and Effexor 150. Wrist restraints were ordered. All medications discontinued as patient has opted for hospice and has met the
criteria for inpatient hospice.
Problem #3:
Paroxysmal atrial fibrillation with RVR
Heart failure with moderately reduced ejection fraction
- Confirmed on EKG. Previously diagnosed with A-fib after gallstone pancreatitis in 2012, converted to sinus rhythm and anticoagulant status unknown. Cardiology was consulted and patient was placed on p.o. diltiazem extended release 120 mg p.o.
every 12 and 50 mg metoprolol as needed every 6 hourly. An echocardiogram showed an ejection fraction of 45%. Patient was then cardioverted which restored his rhythm back to normal sinus rhythm. Patient's last recorded heart rate before being
started on comfort care and inevitably hospice is 133. Patient has opted for hospice care, does not want to take any more medications to control his arrhythmia Meets criteria for inpatient hospice.
Problem #4: Essential hypertension:
- Patient's blood pressure is 119/58. Initially his lisinopril was held due to hypotension from sepsis however as he is opted for inpatient hospice care, blood pressure medications were discontinued.
Problem #5: Hyperlipidemia
- Simvastatin discontinued as patient has opted for inpatient hospice care
Problem #6: Diarrhea with FOBT positive stool
- Patient was just started on Eliquis before this episode of diarrhea and I suspect this is the reason for the positive blood in stool. No clinical correlating symptoms of an acute bleed. He stool cultures came back negative.
DNR
--- NOTE | 2025-05-29 15:34 | CM ---
Patient seen at bedside on [address] now [facility] hospice. CM will continue to follow for discharge planning needs.
Plan; [facility]
[2025-05-29 19:00] VITALS: BP 139/85
--- NOTE | 2025-05-29 21:28 | HOSPNOTE ---
Patient has been admitted to inpatient hospice. Hospice will visit daily
[2025-05-30] MEDS: MORPHINE SULFATE 2 MG IV ×4 (05:09→17:08)
[2025-05-30] MEDS: ATIVAN 2 MG IV ×2 (07:10→11:35)
[2025-05-30 07:20] VITALS: BP 137/66
--- NOTE | 2025-05-30 12:52 | HOSPNOTE ---
Spoke with floor RN and we discussed how anxious patient is and I am not sure if this is a form of terminal agitation. The new plan is to start patient on a drip continue with valium IV. Patient remains inpatient hospice. Patient will be seen daily.
[2025-05-30] MEDS: MORPHINE 100 IV (13:14)
--- NOTE | 2025-05-30 15:24 | W.PN.HOSP.TC ---
Addendum entered and electronically signed by Morena Alves MD 05/30/25 15:47:
I saw and evaluated the patient independently. I reviewed and discussed the resident�s note and agree with findings and plan as documented by Dr. Warren.
GENERAL: well developed, well nourished, male in no apparent distress-- morphine dip started as pt was extremely agitated, SOB, 'appeared scared'
HEENT: NC/AT--no O2 requirements
HEART: regular rate and rhythm, +S1, +S2
LUNGS : clear to auscultation bilaterally
ABDOM: soft, nontender, nondistended, + bowel sounds
EXT: no cyanosis, clubbing-- trace edema bilaterally
NEUROLOGIC: sleepy--not talkative
Desire for no further treatment--pt has essentially given up his will to live--pt refused meds, wanted no further treatment--wants to be with his who 2 years ago--apprec psych, NOT suicidal, actually diagnosed with Toxic metabolic
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
other medical issues:
Paroxysmal Atrial Fibrillation with RVR/HFrEF
Diarrhea with FOBT positive stool
Sepsis with end organ damage due to possibly pneumonia
Prerenal acute kidney injury
NON Anion gap hyperchloremic metabolic acidosis
Rhabdomyolysis/hematuria
Transaminitis with normal bilirubin level due to ischemic hepatitis
Essential hypertension
BPH
Hyperlipidemia
Dementia
Depression
DVT prophylaxis
Code status--DNR/DNI
apprec hospice help
Original Note:
Today's Communication/Plan
-
- continue inpatient hospice medications
Assessment / Plan
Assessment / Plan
Patient is transitioned to inpatient hospice care after consent forms had been signed (05/29/25)
Currently on inpatient hospice meds for comfort and symptom relief
Suicidal ideations with no active plan:
- Patient is refusing all medications, he states that wants to be with his who 2 years ago, I told him the risks of not taking his medications and the complications of an untreated arrhythmia, to which he understands and still refuses
medication. Dr. Katz saw him and he also refused treatment as well with her. He told his sister in law that he wants to stop medications and as well. His sister in law is concerned that he wants to kill himself.
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
- stopped quetiapine 50 mg, and Remeron 7.5, Effexor 150 mg as patient has been transitioned to comfort care
Paroxysmal Atrial Fibrillation with RVR
HFrEF:
- All meds dc'd
Diarrhea with FOBT positive stool:
- ordered stool cultures
Sepsis with end organ damage due to possibly pneumonia:
- resolved
Prerenal acute kidney injury:
- resolved
NON Anion gap hyperchloremic metabolic acidosis
- resolved
Rhabdomyolysis/hematuria:
- resolved
Transaminitis with normal bilirubin level due to ischemic hepatitis:
- resolved
Essential hypertension:
- discontinue due to patient opting for hospice.
BPH:
- discontinue due to patient opting for hospice.
Hyperlipidemia:
- discontinue due to patient opting for hospice.
Dementia:
- discontinue due to patient opting for hospice.
Depression:
- discontinue due to patient opting for hospice.
DNR
Anticipated Discharge: Today
Subjective/Interval History
-
Date of Service: May 30, 2025
Patient is on comfort care measures and keeps stating to me that he does not ' feel well'. He is aware of his situation and hospice and knows that she does not want any life-saving measures or medications.
No overnight events.
Objective Data
-
Vital Signs:
Vital Signs
Temp Pulse Resp BP Pulse Ox
98.4 F 97 18 137/66 95
05/30/25 07:20 05/30/25 07:20 05/30/25 07:20 05/30/25 07:20 05/30/25 11:45
I&O
05/29/25 05/30/25 05/31/25
06:59 06:59 06:59
Intake Total 180 / 180
Balance 180 / 180
Review of Systems
-
History Source: Patient
All other systems: Reviewed and negative
Physical Exam
-
General: No Apparent Distress and Comfortable
Respiratory: Clear to Auscultation
Cardiac: Regular Rhythm and S1/S2
GI: Soft, Nontender, Nondistended and Normal Bowel Sounds
Musculoskeletal: No Clubbing, No Cyanosis and No Edema
Skin: Warm and Dry
Neuro: Awake and Alert
Psych: Calm
--- NOTE | 2025-05-30 16:44 | CM ---
Patient now GIP hospice. patient seen with physicians. Patient appeared comfortable. CM will continue to follow for discharge planning needs.
Plan; [facility] hospice
[2025-05-30 19:19] VITALS: BP 148/65
[2025-05-31 07:27] VITALS: BP 91/42
[2025-05-31] MEDS: MORPHINE SULFATE 2 MG IV ×3 (07:55→09:44)
[2025-05-31] MEDS: TYLENOL/FEVERALL 325 MG RECTAL (07:55)
[2025-05-31] MEDS: ROBINUL 0.2 MG IV (07:56)
--- NOTE | 2025-05-31 08:47 | HOSPNOTE ---
ENTERTAINER OR VARIETY ARTIST VISITED 79 YEAR OLD PATIENT TO CONDUCT INITIAL SALES AND MARKETING VICE PRESIDENT ASSESSMENT. PATIENT RECENTLY ADMITTED ONTO HOSPICE SERVICES AND [facility] LEVEL OF CARE WITH THE PRIMARY DIAGNOSIS OF CHF. NURSE REPORTED MEDICATIONS ADMINISTERED AND HE'S
COMFORTABLE. SALES AND MARKETING VICE PRESIDENT GREETED PATIENT UPON ENTERING HIS ROOM, NO RESPONSE. PATIENT ASLEEP AND APPEARED TO BE RESTING COMFORTABLY EVIDENT BY HIS SNORING. SALES AND MARKETING VICE PRESIDENT GENTLY TOUCHED PATIENT'S SHOULDER AND SPOKE TO HIM, NO RESPONSE. NO SIGNS OF PAIN AND/OR
DISTRESS OBSERVED. NO FAMILY MEMBERS PRESENT DURING THIS VISIT. PRAYER AND EMOTIONAL SUPPORT PROVIDED. SALES AND MARKETING VICE PRESIDENT CONTACTED PATIENT'S [id number] GEORGINA TO CHECK ON HIM AND TO PROVIDE UPDATES FROM TODAY'S VISIT. GEORGINA REPORTED HE'S DOING OKAY AND COPING
APPROPRIATELY. HE REPORTED PATIENT WAS TO HIS SISTER AND SHE PASSED 4 YEARS AGO. PATIENT HAS 2 DAUGHTERS AND 2 GRANDCHILDREN THAT RESIDE IN [facility], THEY HAVE BEEN ESTRANGED FROM PATIENT FOR 2 YEARS, HOWEVER THEY'RE AWARE OF
PATIENT'S HEALTH STATUS. PATIENT SERVED 2 YEARS IN THE [employer] DURING THE [place] WAR. GEORGINA IS FOLLOWING UP ON PATIENT'S VA BENEFITS IT RELATES TO EXPENSES. 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 HE ENJOYED
WORKING IN HIS GREEN HOUSE, SELLING PLANTS, AND WOODWORKING. HE'S EPISCOPALIAN AND ISN'T AFFILIATED WITH A PROTESTANT, HIS WISHES ARE TO BE CREMATED, [facility], AND [facility] LOCATED AT [phone] [id number] IS IN CHARGE OF THE ARRANGEMENTS. FAMILY DECLINED BEREAVEMENT SERVICES AT THIS TIME. EMOTIONAL SUPPORT PROVIDED
PATIENT MEETS [facility] CRITERIA FOR SN ASSESSMENTS AND MANAGEMENT OF AGITATION REQUIRING IV MEDICATIONS THAT COULD NOT BE MANAGED AT HOME AND/OR IN AN OUTPATIENT SETTING. DISCHARGE PLANNING CONTINUES.
SALES AND MARKETING VICE PRESIDENT WILL PROVIDE SUPPORTIVE SERVICES ONCE A WEEK WHILE ON [facility] LEVEL OF CARE.
--- NOTE | 2025-05-31 10:35 | W.PN.DEATH ---
Pronouncement of
-
Called to see patient to pronounce.
No spontaneous heart tones or respirations noted.
Patient not responsive to verbal stimuli.
Patient is pronounced .
Time of : 10:20
Date of : 05/31/25
Cause of : Cardiac arrest secondary to atrial fibrillation
Family Notified: Yes
--- NOTE | 2025-05-31 10:58 | W.PN.HOSP.TC ---
Addendum entered and electronically signed by Morena Alves MD 05/31/25 12:56:
patient prior to me being to see him
Desire for no further treatment--pt has essentially given up his will to live--pt refused meds, wanted no further treatment--wants to be with his who 2 years ago--apprec psych, NOT suicidal, actually diagnosed with Toxic metabolic
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
other medical issues:
Paroxysmal Atrial Fibrillation with RVR/HFrEF
Diarrhea with FOBT positive stool
Sepsis with end organ damage due to possibly pneumonia
Prerenal acute kidney injury
NON Anion gap hyperchloremic metabolic acidosis
Rhabdomyolysis/hematuria
Transaminitis with normal bilirubin level due to ischemic hepatitis
Essential hypertension
BPH
Hyperlipidemia
Dementia
Depression
DVT prophylaxis
Code status--DNR/DNI
apprec hospice help
Original Note:
Today's Communication/Plan
-
- Patient
Assessment / Plan
Assessment / Plan
Patient pronounced at 10:20 Am today (05/31/25)
Patient is transitioned to inpatient hospice care after consent forms had been signed (05/29/25)
Currently on inpatient hospice meds for comfort and symptom relief
Suicidal ideations with no active plan:
- Patient is refusing all medications, he states that wants to be with his who 2 years ago, I told him the risks of not taking his medications and the complications of an untreated arrhythmia, to which he understands and still refuses
medication. Dr. Katz saw him and he also refused treatment as well with her. He told his sister in law that he wants to stop medications and as well. His sister in law is concerned that he wants to kill himself.
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
- stopped quetiapine 50 mg, and Remeron 7.5, Effexor 150 mg as patient has been transitioned to comfort care
Paroxysmal Atrial Fibrillation with RVR
HFrEF:
- All meds dc'd
Diarrhea with FOBT positive stool:
- ordered stool cultures
Sepsis with end organ damage due to possibly pneumonia:
- resolved
Prerenal acute kidney injury:
- resolved
NON Anion gap hyperchloremic metabolic acidosis
- resolved
Rhabdomyolysis/hematuria:
- resolved
Transaminitis with normal bilirubin level due to ischemic hepatitis:
- resolved
Essential hypertension:
- discontinue due to patient opting for hospice.
BPH:
- discontinue due to patient opting for hospice.
Hyperlipidemia:
- discontinue due to patient opting for hospice.
Dementia:
- discontinue due to patient opting for hospice.
Depression:
- discontinue due to patient opting for hospice.
DNR
Anticipated Discharge: Today
Subjective/Interval History
-
Date of Service: May 31, 2025
Patient was awake alert not oriented and lethargic not answering questions today on morphine drip in the morning around 7:30 AM when I rounded on him.
Patient today at 10:20 am from cardiac arrest secondary to Atrial Fibrillation
Objective Data
-
Vital Signs:
Vital Signs
Temp Pulse Resp BP Pulse Ox
100.1 F 116 24 91/42 95
05/31/25 07:27 05/31/25 07:27 05/31/25 07:27 05/31/25 07:27 05/31/25 07:27
I&O
05/30/25 05/31/25 06/01/25
06:59 06:59 06:59
Intake Total 180 / 180 0 / 0
Balance 180 / 180 0 / 0
Review of Systems
-
History Source: Patient
All other systems: Reviewed and negative
Physical Exam
-
General: No Apparent Distress and Comfortable
Respiratory: Clear to Auscultation
Cardiac: Regular Rhythm and S1/S2
GI: Soft, Nontender, Nondistended and Normal Bowel Sounds
Musculoskeletal: No Clubbing, No Cyanosis and No Edema
Skin: Warm and Dry
Neuro: Awake and Alert
Psych: Calm
--- NOTE | 2025-05-31 12:33 | HOSPNOTE ---
Condolence call placed to Ahmet and Mare (brother and sister in law), they are grieving appropriately. arrangements have been completed.
--- NOTE | 2025-05-31 13:19 | CM ---
Patient today and hospice in contact with brother for further planning.
Plan:
--- NOTE | 2025-05-31 17:16 | W.DCSUMMARY ---
Addendum entered and electronically signed by Morena Alves MD 05/31/25 17:56:
Read, reviewed, and agree. See same day progress note for additional details. Time spent coordinating care, DC planning, review of DC plan of care with resident, transition of care, review of records in EMR, med rec, consults, notes, d/w
consultants, nursing, family, and CM = 33 minutes
Original Note:
Discharge Summary
Discharge Data
Date of Admission: 05/29/25
Date of Discharge: 05/31/25
-
Pending Results: No
Hospital Course
Discharging Physician : Dr. Morena Alves and Dr. Lincoln Warren
Disposition :
Primary care physician : Unknown
Principal Discharge diagnosis : Sepsis with end organ damage (resolved), paroxysmal atrial fibrillation with RVR, prerenal acute injury, non anion gap hyperkalemic metabolic acidosis, traumatic rhabdomyolysis/hematuria, transaminitis with normal
bilirubin levels
Chronic Discharge diagnosis : essential hypertension, BPH, hyperlipidemia, dementia, depression
Hospital Course : 79-year-old male full code with a past medical history of hypertension, hyperlipidemia, Parkinson's, dementia brought to the ER by EMS for evaluation of altered mental status. Diagnosed with sepsis with end organ damage which
later resolved and then new onset atrial fibrillation with rapid ventricular rate for which patient was initially treated but then refused medications and rather opted for hospice. Later admitted to inpatient hospice and today (05/31/25) at
10:20 am.
Problem #1:
Sepsis with end organ damage (resolved)
Prerenal acute kidney injury
Non-anion gap hyperchloremic metabolic acidosis
Transaminitis with normal bilirubin level due to ischemic hepatitis
Rhabdomyolysis
- On admission criteria for sepsis with endorgan damages met with a blood pressure of 89/48, WBC count of 27.9, creatinine 3.9, lactic acid of 4.7, and decreased core body temperature, bicarb 10 on admission. Blood cultures and urine cultures are
negative. Chest x-ray shows possible left basilar airspace opacities which may either be atelectasis or pneumonia. Head CT is negative for any intracranial abnormalities. Chest abdomen pelvis CT is unremarkable. Patient was started on IV fluids
(initially sterile saline with 150 mEq of bicarb and then later transition to regular normal saline), empiric Zosyn and vancomycin. Sepsis eventually resolved with normalized blood pressures, normalized WBC count, normalized lactic acid, normalized
temperature, normalized creatinine level, normalized LFT counts, and normalized creatinine kinase levels, normalized bicarb levels. Procalcitonin was more than 25, panculture was done and was negative. PT OT recommended skilled rehab. IV fluids
and antibiotics are discontinued as patient has opted for hospice and has met the criteria for inpatient hospice. Patient today on 05/31/25.
Problem #2:
Suicidal ideations no active plan
Depression
Possible dementia
Agitation
- During the course of hospital stay, patient was agitated and expressed feelings of wanting to be with his with 2 years ago. Psychiatry was then consulted and diagnosed him with toxic metabolic encephalopathy superimposed on
dementia and a possible diagnosis of PTSD. Reduced his home medications to dosages of quetiapine 50, Remeron 7.5 and Effexor 150. Wrist restraints were ordered. All medications discontinued as patient has opted for hospice and has met the
criteria for inpatient hospice.Patient today on 05/31/25.
Problem #3:
Paroxysmal atrial fibrillation with RVR
Heart failure with moderately reduced ejection fraction
- Confirmed on EKG. Previously diagnosed with A-fib after gallstone pancreatitis in 2012, converted to sinus rhythm and anticoagulant status unknown. Cardiology was consulted and patient was placed on p.o. diltiazem extended release 120 mg p.o.
every 12 and 50 mg metoprolol as needed every 6 hourly. An echocardiogram showed an ejection fraction of 45%. Patient was then cardioverted which restored his rhythm back to normal sinus rhythm. Patient's last recorded heart rate before being
started on comfort care and inevitably hospice is 133. Patient has opted for hospice care, does not want to take any more medications to control his arrhythmia Meets criteria for inpatient hospice. Patient today on 05/31/25.
Problem #4: Essential hypertension:
- Patient's blood pressure is 119/58. Initially his lisinopril was held due to hypotension from sepsis however as he is opted for inpatient hospice care, blood pressure medications were discontinued. Patient today on 05/31/25.
Problem #5: Hyperlipidemia
- Simvastatin discontinued as patient has opted for inpatient hospice care.Patient today on 05/31/25.
Problem #6: Diarrhea with FOBT positive stool
- Patient was just started on Eliquis before this episode of diarrhea and I suspect this is the reason for the positive blood in stool. No clinical correlating symptoms of an acute bleed. He stool cultures came back negative. Patient today
on 05/31/25.
Important imaging findings :
Head CT on 05/14/2025
IMPRESSION:
No acute intracranial abnormality.
Chest/abdomen/pelvis CT on 05/18/2025
IMPRESSION:
Markedly limited evaluation as a result of numerous factors, as detailed above.
Large hiatal hernia/intrathoracic stomach.
Grossly intact solid organs of the abdomen.
Markedly limited evaluation of intestinal tract by all of the above findings with descending colon and sigmoid diverticulosis. No intestinal obstruction or free air. Acute infectious process of the intestinal tract cannot be excluded on the basis of
this study.
Prior cholecystectomy.
Mild partial L1 vertebral compression fracture, stable. Extensive metal hardware throughout the lower thoracic and lumbar spine as well as the proximal left femur.
Abdominal ultrasound on 05/19/2025
-FINDINGS and IMPRESSION:
The gallbladder is surgically absent. Common bile duct measures 0.7 cm likely within the limits of normal in light of prior cholecystectomy. No findings to suggest choledocholithiasis or intrahepatic biliary tract dilatation.
Pancreas significantly obscured, most likely by overlying bowel gas.
The right kidney is unremarkable.
Normal directional blood flow is seen in the hepatic and portal veins.
Please see recent CT Abdomen and pelvis report of preceding day.
Chest x-ray on 05/24/2025
IMPRESSION:
Improving left basilar airspace disease.
Procedure findings :
Cardioversion
Procedure Report:
Date of Procedure: 05/25/25
Procedure: Cardioversion
Indication: Symptomatic atrial fibrillation
Performing Physician: Tyron Jones MD
Technique: The patient was brought to the holding area. Signed informed consent was obtained. A time out was called and performed. The patient was anesthetized by the anesthesia service. Anticoagulation status was reviewed and appropriate. R2 pads
were placed anteriorly and posteriorly. After LISSET revealed no TERESE thrombus, a 200 J synchronized biphasic shock restored normal sinus rhythm without significant bradycardia. There were no complications.
Conclusion: Uncomplicated cardioversion from atrial fibrillation to sinus rhythm.
Recommendation: Routine post cardioversion care. Continue mcc anticoagulation.
Discharge Plan
-
Patient Disposition:
Date/Time
Date/Time: 05/31/25 10:20
Discharge Date and Time
Discharge Date/Time: 05/31/25 10:20
Print Language: [id number]
== END 2025-05-31 10:20 | disposition expired | DRG 951 ==
LOC: 2 NORTH 12:48
PROVIDERS: ADMITTING PHYSICIAN Internal Medicine
DX: Z51.5 Encounter for palliative care (principal); A41.9 Sepsis, unspecified organism; R65.20 Severe sepsis without septic shock; G92.8 Other toxic encephalopathy; I50.22 Chronic systolic (congestive) heart failure; N17.9 Acute kidney failure, unspecified; E87.29 Other acidosis; M62.82 Rhabdomyolysis; F02.83 Dementia in other diseases classified elsewhere, unspecified severity, with mood disturbance; M48.56XA Collapsed vertebra, not elsewhere classified, lumbar region, initial encounter for fracture; I48.0 Paroxysmal atrial fibrillation; I11.0 Hypertensive heart disease with heart failure; E87.8 Other disorders of electrolyte and fluid balance, not elsewhere classified; N40.0 Benign prostatic hyperplasia without lower urinary tract symptoms; E78.5 Hyperlipidemia, unspecified; G20.A1 Parkinson's disease without dyskinesia, without mention of fluctuations; F32.A Depression, unspecified; Z66 Do not resuscitate; Z90.49 Acquired absence of other specified parts of digestive tract; I46.2 Cardiac arrest due to underlying cardiac condition